=== PATIENT | female | born 2005 | race Caucasian/White ===

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

== ENCOUNTER 2025-05-26 14:00 | Outpatient (CLI) | payer MEDICAID, SELFPAY ==
--- OUTSIDE RECORDS SUMMARY | 2025-05-26 14:06 | XMS_ITS | Data Portability ---
Author Organization [facility] [place] Address [address] [place] [address] Care Team Providers Care Silo Operator Name Role Phone DIAMOND AGUAYO Primary Care Provider [phone] Assessment Encounter Date Assessment Date Assessment LastModified by Organization Details LastModified Time 02/10/2024 02/10/2024 Negative POC testing today. No evidence of bacterial infection on PE. Increased oral fluids, OTC tylenol, ibuprofen and mucinex recommended per package instructions. Follow up if no improvement or worsening. Work note provided for M-W, return to work on as long as no fever in 24 hours. Not available 02/14/2024 08:42:42 02/12/2024 02/12/2024 PE consistent with otitis media. Medication as prescribed. Follow up if no improvement or worsening. Not available 02/14/2024 08:16:07 04/14/2025 04/14/2025 Patient presents with symptoms of UTI. Results of dipstick were positive for UTI. Advised to drink clear fluids, Tylenol for pain and take prescribed medications as instructed. Patient encouraged to follow up within 1 week if not improving. Recurrent Urinary Tract Infection Plan: - Prescribe Nitrofurantoin (Macrobid) 100 mg PO BID for 7 days - Obtain urine culture - Follow up with patient regarding culture results in 3 days - Initiate Docusate sodium (stool softener) PO daily - Patient education: - Increase clear fluid intake - Avoid caffeine - Urinate immediately after sexual intercourse - If UTI recurs after this treatment, consider referral to urology - Follow up as needed based on culture results and symptom resolution [email or web address] Not available 04/14/2025 12:00:38 Plan of Treatment Reminders Order Date Submit Date Provider Last Modified By Organization Details Last Modified Time Details Appointments None recorded. Lab urinalysis, dipstick [address], [address], 11:38:10 culture, urine 2024 025 [facility]), [address] [place] [address], [address], 5 02:06:46 culture, urine 2024 025 [facility]), [address] [place] [address], [address], 5 17:07:38 urinalysis, dipstick [address], [address], 5 17:50:42 CT + NG RNA, PCR, unspecified specimen 2024 025 [facility], [address] [place] [address], [address], 5 17:07:37 urinalysis, dipstick [address], [address], 5 14:38:35 vaginal pathogens panel, BAUTISTA+probe, vaginal fluid 2024 025 [facility]), [address] [place] [address], [address], 5 12:13:00 culture, urine 2024 025 [facility], [address] [place] [address], [place], [address], 5 12:13:00 test, urine 2024 025 [email or web address] [facility], [address] [place] [address], [address], 5 14:38:35 rapid flu (A+B) [address], [address], 4 12:49:34 rapid strep group A, throat [address], [address], 4 17:43:19 rapid SARS CoV 2 Ag, QL, IA, upper respiratory specimen 2023 024 [facility], [address] [place] [address], [address], 4 12:49:26 mononucleos is, heterophile Ab, blood [address], [address], 4 17:48:59 Referral gynecologis t referral - IUD placement 2024 025 [email or web address] Mer Cummings DO, [address], [place] [address], [place], [address], 5 08:51:13 Procedures None recorded. Surgeries None recorded. Imaging None recorded. Medication Orders docusate sodium 100 mg capsule 2024 025 [facility], [address] [place] [address], [address], 11:59:41 nitrofurant oin monohydrate /macrocryst als 100 mg capsule 2024 025 [facility], [address] [place] [address], [address], 05:01:49 Bactrim DS 800 mg-160 mg tablet 2024 025 [facility], [address] [place] [address], [address], 11:49:48 Bactrim DS 800 mg-160 mg tablet 2024 025 [facility], [address] [place] [address], [address], 11:28:15 cefdinir 300 mg capsule 2023 025 [facility], [address] [place] [address], [address], 15:10:49 Patient TargetsNo targets recorded. 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 for Co ntraception care management IUD placement Referring Physician: Diamond Agauyo, Family Medicine, Encounter Date: 11/04/2024 Results Created Date Observation Date Name Description Value Unit Range Abnormal Flag Note LastModifiedBy Organization Detail LastModifiedTime 02/10/2002/10/2024 monon ucleo sis, heter ophil e Ab, blood Nicholas negati ve Not Available [address], [address], 02/10/2024 17:48:51 02/10/20 02/10/2024 rapid strep group A, throa t Strep negati ve Not Available [address], [address], 02/10/2024 16:54:48 02/12/20 24 02/12/2024 rapid SARS CoV 2 Ag, QL, IA, upper respi rator y speci men SARS CoV Ag negati ve Not Available [address], [address], 02/10/2024 16:54:49 02/12/20 24 02/12/2024 rapid flu (A+B) Flu A negati ve Not Available [address], [address], 02/10/2024 16:54:48 02/12/2002/12/2024 rapid flu (A+B) Flu B negati ve Not Available [address], [address], 02/10/2024 16:54:48 11/05/19 25 11/05/2024 NUSWA B VAGIN ITIS PLUS (VG+) atopobium vaginae Low - 0 score Not Available [facility] ([facility]) [address] [facility], [place], [address], 11/10/2024 12:13:00 11/05/19 25 11/05/2024 NUSWA B VAGIN ITIS PLUS (VG+) bvab 2 Low - 0 score Not Available [facility] ([facility]) [address] [facility], [place], [address], 11/10/2024 12:13:00 11/05/19 25 11/05/2024 NUSWA B VAGIN ITIS PLUS (VG+) megasphaera 1 Low - 0 score Calcu late total score by addin g the 3 indiv idual bacte rial vagin osis (BV) marke r score s toget her. Total score is inter prete d as follo ws: Total score 0-1: Indic ates the absen ce of BV. Total score 2: Indet ermin ate for BV. Addit ional clini ayde data shoul d be evalu ated to estab sid a diagn osis. Total score 3-6: Indic ates the prese nce of BV. Not Available [facility] ([facility]) [address] [facility], [place], [address], 11/10/2024 12:13:00 11/05/19 25 11/05/2024 NUSWA B VAGIN ITIS PLUS (VG+) bon albicans, BAUTISTA Negati ve negati ve Not Available [facility] ([facility]) [address] [place], [address], 11/10/2024 12:13:00 11/05/19 25 11/05/2024 NUSWA B VAGIN ITIS PLUS (VG+) bon glabrata, BAUTISTA Negati ve negati ve Not Available [facility] ([facility]) [address] [place], [address], 11/10/2024 12:13:00 11/05/19 25 11/05/2024 NUSWA B VAGIN ITIS PLUS (VG+) trich vag by BAUTISTA Negati ve negati ve Not Available [facility] ([facility]) [address] [place], [address], 11/10/2024 12:13:00 11/05/19 25 11/05/2024 NUSWA B VAGIN ITIS PLUS (VG+) chlamydia trachomatis, BAUTISTA Negati ve negati ve Not Available [facility] ([facility]) [address] [place], [address], 11/10/2024 12:13:00 11/05/19 25 11/05/2024 NUSWA B VAGIN ITIS PLUS (VG+) neisseria gonorrhoeae, BAUTISTA Negati ve negati ve Not Available [facility] ([facility]) [address] [facility], [place], [address], 11/10/2024 12:13:00 11/05/19 25 11/10/2024 URINE CULTU RE, ROUTI NE urine culture, routine Final report abnormal Not Available [facility] ([facility]) [address] [facility], [place], [address], 11/10/2024 12:13:00 11/05/19 25 11/10/2024 URINE CULTU RE, ROUTI NE result 1 Staphy lococc us aureus abnormal Based on susce ptibi lity to oxaci llin this isola te would be susce ptibl e to: *Peni cilli nase- stabl e penic illin s, such as: Cloxa cilli n, Diclo xacil sadiq, Nafci llin *Beta -lact am combi natio n agent s, such as: Amoxi cilli n-cla vulan ic acid, Ampic illin -sulb actam , Piper acill in-ta zobac mueller *Oral cephe ms, such as: Cefac keny, Cefdi dave, Cefpo doxim e, Cefpr ozil, Cefur oxime , Cepha lexin , Lorac arbef *Pare ntera l cephe ms, such as: Cefaz rosy, Cefep carlos, Cefot axime , Cefot aman, Cefta rolin e, Cefti zoxim e, Ceftr iaxon e, Cefur oxime *Carb apene ms, such as: Dorip enem, Ertap enem, Imipe nem, Merop enem Most isola alton of Staph yloco ccus sp. produ ce a beta- lacta jhon enzym e rende ring them resis tant to penic illin . Pleas e conta ct the labor atory if penic illin is being consi dered for thera py. Great er than 100,0 00 colon y formi ng units per mL Not Available [facility] ([facility]) [address] [facility], [place], [address], 11/10/2024 12:13:00 11/05/19 25 11/10/2024 URINE CULTU RE, ROUTI NE antimicrobia l susceptibili ty Commen t S = Susce ptibl e; I = Inter media te; R = Resis tant P = Posit chance; N = Negat chance MICS are expre ssed in micro grams per mL Antib iotic RSLT# 1 RSLT# 2 RSLT# 3 RSLT# 4 Cipro floxa stacia S Genta micin S Levof loxac in S Linez olid S Moxif loxac in S Nitro furan toin S Oxaci llin S Rifam pin S Tetra cycli ne S Trime thopr im/Stephens lfa S Vanco mycin S Not Available [facility] ([facility]) [address] [facility], [place], [address], 11/10/2024 12:13:00 11/05/19 25 11/04/2024 urina lysis , dipst ick Leukocytes Modera te Not Available [address], [address], 11/04/2024 14:20:04 11/05/19 25 11/04/2024 urina lysis , dipst ick Nitrite positi ve Not Available [address], [address], 11/04/2024 14:20:04 11/05/19 25 11/04/2024 urina lysis , dipst ick Urobilinogen 1 Not Available [address], [address], 11/04/2024 14:20:04 11/05/19 25 11/04/2024 urina lysis , dipst ick Protein 100 Not Available [address], [address], 11/04/2024 14:20:04 11/05/19 25 11/04/2024 urina lysis , dipst ick pH 5.0 Not Available [address], [address], 11/04/2024 14:20:04 11/05/19 25 11/04/2024 urina lysis , dipst ick Blood Large Not Available [address], [address], 11/04/2024 14:20:04 11/05/1911/04/2024 urina lysis , dipst ick Specific [place] 1.020 Not Available [address], [address], 11/04/2024 14:20:04 11/05/19 25 11/04/2024 urina lysis , dipst ick Ketone Negati ve Not Available [address], [address], 11/04/2024 14:20:04 11/05/19 25 11/04/2024 urina lysis , dipst ick Bilirubin Negati ve Not Available [address], [address], 11/04/2024 14:20:04 11/05/19 25 11/04/2024 urina lysis , dipst ick Glucose Negati ve Not Available [address], [address], 11/04/2024 14:20:04 11/05/19 25 11/04/2024 urina lysis , dipst ick Appearance Cloudy Not Available [address], [address], 11/04/2024 14:20:04 11/05/19 25 11/04/2024 urina lysis , dipst ick Color Dark Yellow Not Available [address], [address], 11/04/2024 14:20:04 11/05/19 25 11/04/2024 pregn laquita test, urine HCG negati ve Not Available [address], [address], 11/04/2024 14:20:17 12/08/19 25 12/07/2024 urina lysis , dipst ick Leukocytes Modera te Not Available [address], [address], 12/07/2024 17:06:20 12/08/19 25 12/07/2024 urina lysis , dipst ick Nitrite negati ve Not Available [address], [address], 12/07/2024 17:06:20 12/08/19 25 12/07/2024 urina lysis , dipst ick Urobilinogen .2 Not Available [address], [address], 12/07/2024 17:06:20 12/08/19 25 12/07/2024 urina lysis , dipst ick Protein 100 Not Available [address], [address], 12/07/2024 17:06:20 12/08/19 25 12/07/2024 urina lysis , dipst ick pH 5.5 Not Available [address], [address], 12/07/2024 17:06:20 12/08/19 25 12/07/2024 urina lysis , dipst ick Blood Modera te Not Available [address], [address], 12/07/2024 17:06:20 12/08/19 25 12/07/2024 urina lysis , dipst ick Specific [place] 1.025 Not Available [address], [address], 12/07/2024 17:06:20 12/08/19 25 12/07/2024 urina lysis , dipst ick Ketone Trace Not Available [address], [address], 12/07/2024 17:06:20 12/08/19 25 12/07/2024 urina lysis , dipst ick Bilirubin Negati ve Not Available [address], [address], 12/07/2024 17:06:20 12/08/1912/07/2024 urina lysis , dipst ick Glucose Negati ve Not Available [address], [address], 12/07/2024 17:06:20 12/08/19 25 12/07/2024 urina lysis , dipst ick Appearance Cloudy Not Available [address], [address], 12/07/2024 17:06:20 12/08/19 25 12/07/2024 urina lysis , dipst ick Color Dark Yellow Not Available [address], [address], 12/07/2024 17:06:20 12/09/19 25 12/10/2024 CHLAM YDIA/ GC AMPLI FICAT ION chlamydia trachomatis, BAUTISTA Negati ve negati ve Not Available [facility] ([facility]) [address] [facility], [place], [address], 12/11/2024 17:07:37 12/09/19 25 12/10/2024 CHLAM YDIA/ GC AMPLI FICAT ION neisseria gonorrhoeae, BAUTISTA Negati ve negati ve Not Available [facility] ([facility]) [address] [facility], [place], [address], 12/11/2024 17:07:37 12/09/19 25 12/11/2024 URINE CULTU RE, ROUTI NE urine culture, routine Final report abnormal Not Available [facility] ([facility]) [address] [facility], [place], [address], 12/11/2024 17:07:38 12/09/19 25 12/11/2024 URINE CULTU RE, ROUTI NE result 1 Staphy lococc us aureus abnormal Based on susce ptibi lity to oxaci llin this isola te would be susce ptibl e to: *Peni cilli nase- stabl e penic illin s, such as: Cloxa cilli n, Diclo xacil sadiq, Nafci llin *Beta -lact am combi natio n agent s, such as: Amoxi cilli n-cla vulan ic acid, Ampic illin -sulb actam , Piper acill in-ta zobac mueller *Oral cephe ms, such as: Cefac keny, Cefdi dave, Cefpo doxim e, Cefpr ozil, Cefur oxime , Cepha lexin , Lorac arbef *Pare ntera l cephe ms, such as: Cefaz rosy, Cefep carlos, Cefot axime , Cefot aman, Cefta rolin e, Cefti zoxim e, Ceftr iaxon e, Cefur oxime *Carb apene ms, such as: Dorip enem, Ertap enem, Imipe nem, Merop enem Most isola alton of Staph yloco ccus sp. produ ce a beta- lacta jhon enzym e rende ring them resis tant to penic illin . Pleas e conta ct the labor atory if penic illin is being consi dered for thera py. 50,00 0-100 ,000 colon y formi ng units per mL Not Available [facility] ([facility]) [address] [place], [address], 12/11/2024 17:07:38 12/09/19 25 12/11/2024 URINE CULTU RE, ROUTI NE antimicrobia l susceptibili ty Commen t S = Susce ptibl e; I = Inter media te; R = Resis tant P = Posit chance; N = Negat chance MICS are expre ssed in micro grams per mL Antib iotic RSLT# 1 RSLT# 2 RSLT# 3 RSLT# 4 Cipro floxa stacia S Genta micin S Levof loxac in S Linez olid S Moxif loxac in S Nitro furan toin S Oxaci llin S Rifam pin S Tetra cycli ne S Trime thopr im/Stephens lfa S Vanco mycin S Not Available [facility] ([facility]) [address] [facility], [place], [address], 12/11/2024 17:07:38 12/09/19 25 12/09/2024 PLEAS E NOTE please note Commen t The date and/o r time of colle ction was not indic ated on the requi sitio n as requi red by state and juan david al law. The date of recei pt of the speci men was used as the colle ction date if not suppl ied. Not Available [facility] ([facility]) [address] [facility], [place], [address], 12/11/2024 17:07:38 04/14/20 25 04/19/2025 URINE CULTU RE, ROUTI NE urine culture, routine Final report abnormal Not Available [facility] ([facility]) [address] [place], [address], 04/19/2025 02:06:46 04/14/2004/19/2025 URINE CULTU RE, ROUTI NE result 1 Staphy lococc us aureus abnormal Based on susce ptibi lity to oxaci llin this isola te would be susce ptibl e to: *Peni cilli nase- stabl e penic illin s, such as: Cloxa cilli n, Diclo xacil sadiq, Nafci llin *Beta -lact am combi natio n agent s, such as: Amoxi cilli n-cla vulan ic acid, Ampic illin -sulb actam , Piper acill in-ta zobac mueller *Oral cephe ms, such as: Cefac keny, Cefdi dave, Cefpo doxim e, Cefpr ozil, Cefur oxime , Cepha lexin , Lorac arbef *Pare ntera l cephe ms, such as: Cefaz rosy, Cefep carlos, Cefot axime , Cefot aman, Cefta rolin e, Cefti zoxim e, Ceftr iaxon e, Cefur oxime *Carb apene ms, such as: Dorip enem, Ertap enem, Imipe nem, Merop enem Most isola alton of Staph yloco ccus sp. produ ce a beta- lacta jhon enzym e rende ring them resis tant to penic illin . Pleas e conta ct the labor atory if penic illin is being consi dered for thera py. 50,00 0-100 ,000 colon y formi ng units per mL Not Available [facility] ([facility]) [address] [facility], [place], [address], 04/19/2025 02:06:46 04/14/2004/19/2025 URINE CULTU RE, TAHMINA NE antimicrobia l susceptibili ty Commen t S = Susce ptibl e; I = Inter media te; R = Resis tant P = Posit chance; N = Negat chance MICS are expre ssed in micro grams per mL Antib iotic RSLT# 1 RSLT# 2 RSLT# 3 RSLT# 4 Cipro floxa stacia S Genta micin S Levof loxac in S Linez olid S Moxif loxac in S Nitro furan toin S Oxaci llin S Rifam pin S Tetra cycli ne S Trime thopr im/Stephens lfa S Vanco mycin S Not Available [facility] ([facility]) [address] [facility], [place], [address], 04/19/2025 02:06:46 04/14/20 25 04/14/2025 urina lysis , dipst ick Leukocytes Modera te Not Available [address], [address], 04/14/2025 11:28:43 04/14/20 25 04/14/2025 urina lysis , dipst ick Nitrite negati ve Not Available [address], [address], 04/14/2025 11:28:43 04/14/20 25 04/14/2025 urina lysis , dipst ick Urobilinogen .2 Not Available [address], [address], 04/14/2025 11:28:43 04/14/20 25 04/14/2025 urina lysis , dipst ick Protein Trace Not Available [address], [address], 04/14/2025 11:28:43 04/14/20 25 04/14/2025 urina lysis , dipst ick pH 6.0 Not Available [address], [address], 04/14/2025 11:28:43 04/14/20 25 04/14/2025 urina lysis , dipst ick Blood Non-He molyze d: Trace Not Available [address], [address], 04/14/2025 11:28:43 04/14/20 25 04/14/2025 urina lysis , dipst ick Specific [place] 1.025 Not Available [address], [address], 04/14/2025 11:28:43 04/14/20 25 04/14/2025 urina lysis , dipst ick Ketone Negati ve Not Available [address], [address], 04/14/2025 11:28:43 04/14/20 25 04/14/2025 urina lysis , dipst ick Bilirubin Negati ve Not Available [address], [address], 04/14/2025 11:28:43 04/14/20 25 04/14/2025 urina lysis , dipst ick Glucose Negati ve Not Available [address], [address], 04/14/2025 11:28:43 04/14/20 25 04/14/2025 urina lysis , dipst ick Appearance Slight ly Cloudy Not Available [address], [address], 04/14/2025 11:28:43 04/14/2004/14/2025 urina lysis , dipst ick Color Yellow Not Available [address], [address], 04/14/2025 11:28:43 02/15/20 24 02/15/2024 XR, chest , 1 view No observ ation record ed. [email or web address] [facility] [address], [place], [place], [address], 03/05/2024 15:18:08 Result Notes None recorded. Problems Name Problem SNOMED Code Status Onset Date Resolution Date Notes Provider Name and Address Organization Details Recorded Time Plane wart 282293154 Completed 201602/20/2018 Problem Code: B07.8; Problem Code Type: ICD-10; Not Available [facility] 21:18:44 Constipa tion 56770860 Completed 201602/20/2018 Not Available [facility] 21:18:47 Verruca vulgaris 80876375 Completed 201602/20/2018 Problem Code: 078.10; Problem Code Type: ICD-9; Not Available [facility] 21:18:51 Menorrha grecia [id number] Completed 201703/03/2018 Not Available [facility] 21:18:51 Menometr orrhagia 990108909 Completed 201703/03/2018 Not Available [facility] 21:18:52 Overweig ht in childhoo d [id number] Completed 201703/08/2021 Problem Code: Z68.53; Problem Code Type: ICD-10; [place] [employer] 16:58:46 Acute pansinus itis 2171685 Completed 201706/26/2018 Problem Code: J01.40; Problem Code Type: ICD-10; Not Available [facility] 21:18:45 Acute sinusiti s 11945429 Completed 201706/26/2018 Problem Code: 461.8; Problem Code Type: ICD-9; Not Available [facility] 21:18:54 Tension- type headache 142599698 Completed 201707/10/2018 Problem Code: G44.209; Problem Code Type: ICD-10; Not Available [facility] 21:18:45 Psychoge sabra headache 56894681 Completed 201707/10/2018 Problem Code: 307.81; Problem Code Type: ICD-9; Not Available [facility] 21:18:53 Allergic contact dermatit is 274650668 Active 2018 Problem Code: L23; Problem Code Type: ICD-10; Not Available [facility] 21:18:50 Acute pharyngi tis 950725412 Completed 201811/23/2019 Diamond Aguayo APRN [address] [place], [address] , [facility] 5 14:29:38 Hypertro phy of tonsils AND adenoids 15563687 Completed 201805/16/2022 Problem Code: J35.3; Problem Code Type: ICD-10; BENJI MCDANIELSNEAR null, [employer] 16:58:46 Eruption [id number] Completed 201811/23/2019 Problem Code: R21; Problem Code Type: ICD-10; BENJI MCDANIELSNEAR null, [employer] 16:58:46 Disorder of upper respirat ory system 565003851 Completed 201805/16/2022 Problem Code: J06.9; Problem Code Type: ICD-10; BENJI MCDANIELSNEAR null, [employer] 2 16:58:46 Influenz a with gastroin testinal tract involvem ent 318638695 Completed 201911/23/2019 Problem Code: J10.2; Problem Code Type: ICD-10; Not Available [facility] 21:18:46 Acute pharyngi tis 178233702 Completed 201905/16/2022 Diamond Aguayo APRN [address] [place], [address] , [employer] 5 14:29:38 Tinea pedis 8364635 Completed 201905/16/2022 Problem Code: B35.3; Problem Code Type: ICD-10; BENJI ENEDELIASIDNEYR null, [facility] 2 16:58:46 Constipa tion 29476003 Active 2019 Not Available [facility] 21:18:46 Well child 505144326 Completed 201907/26/2022 NATE GUZMÁN null, [employer] 3 17:14:39 Influenz a vaccine needed [id number] 06 Completed 201911/28/2020 Problem Code: Z23; Problem Code Type: ICD-10; Not Available [facility] 21:18:49 Overweig ht in childhoo d 458980626 Completed 201905/16/2022 Problem Code: Z68.53; Problem Code Type: ICD-10; BENJI ENEDELIANEAR null, [facility] 16:58:46 Sunburn of first degree 970603294 Completed 201905/16/2022 Problem Code: L55.0; Problem Code Type: ICD-10; BENJI ENEDELIANEAR null, [employer] 16:58:46 Nausea 108142223 Completed 201911/28/2020 Problem Code: R11.0; Problem Code Type: ICD-10; Not Available [facility] 21:18:48 Disorder of upper respirat ory system 057245983 Completed 201911/28/2020 Problem Code: J06.9; Problem Code Type: ICD-10; BENJI ENEDELIANEAR null, [facility] 2 16:58:46 Itching 861478613 Completed 202011/28/2020 Problem Code: L29.9; Problem Code Type: ICD-10; Not Available [facility] 21:18:47 Eruption 371249309 Completed 202011/28/2020 Problem Code: R21; Problem Code Type: ICD-10; BENJI MYNEAR null, [employer] 2 16:58:46 Eruption 662857724 Completed 202005/16/2022 Problem Code: R21; Problem Code Type: ICD-10; BENJI HERRERA null, [employer] 2 16:58:46 Chronic allergic conjunct ivitis 24346963 Completed 202003/08/2021 Problem Code: H10.45; Problem Code Type: ICD-10; Not Available [facility] 21:18:45 Overweig ht in childhoo d [id number] Completed 202009/14/2021 Problem Code: Z68.53; Problem Code Type: ICD-10; BENJI HERRERA null, [employer] 2 16:58:46 Disorder of eye region 844556609 Completed 202005/16/2022 Problem Code: H57.8; Problem Code Type: ICD-10; BENJI HERRERA null, [employer] 2 16:58:46 Low back pain 582924690 Completed 202005/16/2022 Problem Code: M54.5; Problem Code Type: ICD-10; BENJI HERRERA null, [employer] 2 16:58:46 Uses combined oral contrace ption [id number] Active 2020 Problem Code: Z30.41; Problem Code Type: ICD-10; Not Available [facility] 21:18:49 [place] ht in childhoo d [id number] Completed 202009/14/2021 Problem Code: Z68.53; Problem Code Type: ICD-10; BENJI HERRERA null, [employer] 16:58:46 Well child [id number] Completed 202009/14/2021 NATE GUZMÁN null, [employer] 3 17:14:39 Disorder of upper respirat ory system 524849943 Completed 202009/14/2021 Problem Code: J06.9; Problem Code Type: ICD-10; BENJI CROWR null, [facility] [facility] 2 16:58:46 Acute pharyngi tis 899313887 Completed 202009/14/2021 Diamond Aguayo APRN [address] [place] [address], [phone] , [employer] 5 14:29:38 Acute pharyngi tis 637404088 Completed 202111/30/2021 Diamond Aguayo APRN [address] [place] [address], [phone] , [employer] 5 14:29:38 Bereavem ent [id number] Completed 202105/16/2022 Problem Code: Z63.4; Problem Code Type: ICD-10; BENJI MCDANIELSNEAR null, [employer] 2 16:58:46 Hypertro phic scar 71790394 Completed 202105/16/2022 Problem Code: L91.0; Problem Code Type: ICD-10; BENJI MCDANIELSNEAR null, [employer] 2 16:58:46 Swelling / lump finding Completed 202105/16/2022 Problem Code: R22.9; Problem Code Type: ICD-10; BENJI MCDANIELSNEAR null, [employer] 2 16:58:46 Contact dermatit is 50612359 Completed 202202/14/2024 Almaz Quintanilla NP [address] [place] [address], [phone] , [employer] 4 08:14:38 Acute urinary tract infectio n 936278699 Completed 202202/14/2024 Almaz Quintanilla NP [address] [place] [address], [phone] , [facility] 4 08:14:35 Dysuria 57290194 Active 2024 Anahy rodriguez, [employer] 5 17:06:15 Acute cystitis 00576206 Active 2024 Diamond Aguayo, [employer] [facility] [address] [place], [address] , [facility] 5 11:36:31 Chronic constipa tion 990587413 Active 2024 Diamond Aguayo, [employer] [address] [place], [address] , [facility] 5 11:46:18 Problem Notes None recorded. Medical Equipment None Reported. Allergies Allergen ID Allergen Name Allergen Category Reaction Reaction Severity Criticality Documentation Date Start Date Code Code System Note Provider Name and Address Organization Details Recorded Time 21543 Product containin g penicilli n (product) medicatio n Not available Not available Not available 03/27/2022 44071 8001 SNOMED NATE rodriguez, [place] [employer] 3 17:13:52 Medications Name Sig Start Date Stop Date Status Note LastModified by Organization Details LastModified Time promethazin e-DM 6.25 mg-15 mg/5 mL oral syrup take 5 millilite rs by oral route every 4 hours as needed 08/14 completed Not Available Not Available Not Available cetirizine 10 mg tablet TAKE 1 TABLET EVERY DAY BY ORAL ROUTE. 11/04 completed Not Available Not Available Not Available azithromyci n 250 mg tablet take 2 tablets (500 mg) by oral route once daily for 1 day then 1 tablet (250 mg) by oral route once daily for 4 days 04/19 completed Not Available Not Available Not Available ibuprofen 800 mg tablet TAKE 1 TABLET BY MOUTH EVERY 8 HOURS NEEDED 11/04 completed Not Available Not Available Not Available prednisone 20 mg tablet take 1 tablet (20 mg) by oral route 3 times per day x3 days 11/28 completed Not Available Not Available Not Available prednisone 5 mg tablet 7pills po today and decrease by one q day 03/06 completed Not Available Not Available Not Available clindamycin HCl 150 mg capsule 06/19 completed Not Available Not Available Not Available ciprofloxac in 500 mg tablet TAKE 1 TABLET BY MOUTH EVERY 12 HOURS FOR 10 DAYS 11/04 completed Not Available Not Available Not Available sulfamethox azole 800 mg-trimetho prim 160 mg tablet TAKE ONE TABLET BY MOUTH every 12 hours FOR SEVEN DAYS, FOR uti 04/14 completed Not Available Not Available Not Available Zofran 4 mg tablet take 1 tab by oral route very 4-6 hours prn n/v 05/18 completed Not Available Not Available Not Available ciprofloxac in 0.3 % eye drops INSTILL 1 DROP INTO AFFECTED EYE(S) BY OPHTHALMI C ROUTE EVERY 2 HOURSWHIL E AWAKE FOR 2 DAYS THEN 1 DROP EVERY 4 HRS WHILE AWAKE FOR 5 DAYS 11/05 completed Not Available Not Available Not Available benzonatate 100 mg capsule TAKE 1 CAPSULE BY MOUTH TWICE DAILY NEEDED FOR COUGH 11/04 completed Not Available Not Available Not Available cephalexin 500 mg capsule Take 1 capsule twice a day by oral route for 10 days. 11/05 completed Not Available Not Available Not Available erythromyci n 5 mg/gram (0.5 %) eye ointment APPLY 1 CM RIBBON INTO THE LOWER CONJUNCTI SOURAV SAC(S) IN THE AFFECTED EYE(S) BY OPHTHALMI C ROUTE 3 TIMES PER DAY 11/05 completed Not Available Not Available Not Available oseltamivir 75 mg capsule take 1 capsule (75 mg) by oral route 2 times per day 10/01 completed Not Available Not Available Not Available docusate sodium 100 mg capsule TAKE 1 CAPSULE BY MOUTH 2 TIMES PER DAY NEEDED CONSTIPAT ION active Not Available Not Available No t Available Zaditor 0.025 % (0.035 %) eye drops instill 1 drop into affected eye(s) by ophthalmi c route 2 times per day 03/08 completed Not Available Not Available Not Available prednisone 5 mg tablets in a dose pack Take as directed on package instructi ons} 04/05 completed Not Available Not Available Not Available polyethylen e glycol 3350 17 gram/dose oral powder take 17 gram mixed with 8 oz. water, juice, soda, coffee or tea by oral route once daily 11/05 completed Not Available Not Available Not Available betamethaso ne dipropionat e 0.05 % topical ointment apply a thin layer to the affected area(s) by topical route 2 times per day 06/20 completed Not Available Not Available Not Available bromphenira mine-pseudo ephedrine-D M 2 mg-30 mg-10 mg/5 mL oral syrup Take 10 mL every 4-6 hours by oral route. 04/19 completed Not Available Not Available Not Available ondansetron 4 mg disintegrat ing tablet place 1 tablet on top of the tongue where it will dissolve, then swallow every 6 hours prn nausea/vo miting 10/01 completed Not Available Not Available Not Available cefdinir 300 mg capsule TAKE ONE CAPSULE BY MOUTH EVERY TWELVE HOURS 11/04 completed Not Available Not Available Not Available fluticasone propionate 50 mcg/actuati on nasal spray,suspe nsion [place] 1 spray every day by intranasa l route. active Not Available Not Available No t Available loratadine 10 mg tablet TAKE 1 TABLET BY MOUTH DAILY FOR NASAL/SARKIS ST CONGESTIO N. 11/04 completed Not Available Not Available Not Available naproxen 500 mg tablet TAKE 1 TABLET BY MOUTH TWICE DAILY 05/16 completed Not Available Not Available Not Available hydroxyzine pamoate 25 mg capsule take 1 capsule (25 mg) by oral route 3 times per day 06/20 completed Not Available Not Available Not Available azithromyci n 500 mg tablet Take 1 tablet every day by oral route for 5 days. 02/09 completed Not Available Not Available Not Available 08/10 (28) 1 mg-20 mcg (21)/75 mg (7) tablet TAKE 1 TABLET BY MOUTH ONCE DAILY active Not Available Not Available No t Available nitrofurant oin monohydrate /macrocryst als 100 mg capsule Take 1 capsule every 12 hours by oral route for 7 days, for UTI. 04/28 completed Not Available Not Available Not Available Antifungal (terbinafin e) 1 % topical cream apply to the affected and surroundi ng areas of skin of feet by topical route 2 times per day 05/18 completed Not Available Not Available Not Available lactulose 20 gram/30 mL oral solution Take 15 ml bu oral route once daily prn constipat ion 03/07 completed Not Available Not Available Not Available [employer]flex COVID-19 Antigen Home Test kit DIRECTED 05/16 completed Not Available Not Available Not Available Vitals Date Recorded Body height Body mass index (BMI) [Percentile] Per age and sex Body mass index (BMI) Body weight Body temperature Heart rate Oxygen saturation Oxygen saturation in Arterial blood by Pulse oximetry Systolic And Diastolic Provider Name and Address Organization Details Last Updated DateTime 5 161.29 cm 64 % 23 kg/m2 32082.4 7 g 98 [degF] 96 /min 98 % 98 % 118/80 mm[Hg] BENJI HERRERA [facility] 5 14:13:37 Date Recorded Body height Body mass index (BMI) Body mass index (BMI) [Percentile] Per age and sex Body weight Heart rate Oxygen saturation Oxygen saturation in Arterial blood by Pulse oximetry Systolic And Diastolic Provider Name and Address Organization Details Last Updated DateTime 5 161.29 cm 23.2 kg/m2 66 % 43122.7 9 g 76 /min 94 % 94 % 122/83 mm[Hg] Anahy Izquierdo [facility] 5 17:05:45 Date Recorded Body height Body mass index (BMI) [Percentile] Per age and sex Body mass index (BMI) Body weight Body temperature Heart rate Oxygen saturation Oxygen saturation in Arterial blood by Pulse oximetry Systolic And Diastolic Provider Name and Address Organization Details Last Updated DateTime 4 161.29 cm 91 % 28.1 kg/m2 37079.7 7 g 99.1 [degF] 107 /min 96 % 96 % 110/76 mm[Hg] Yvette Mclaughlin [facility] 4 16:54:23 Date Recorded Body height Body mass index (BMI) Body mass index (BMI) [Percentile] Per age and sex Body weight Body temperature Heart rate Oxygen saturation Oxygen saturation in Arterial blood by Pulse oximetry Systolic And Diastolic Provider Name and Address Organization Details Last Updated DateTime 4 161.29 cm 28.2 kg/m2 91 % 72001.5 3 g 99.9 [degF] 108 /min 95 % 95 % 106/75 mm[Hg] Ibeth Ruiz [facility] 4 17:06:06 Date Recorded Body height Body mass index (BMI) Body mass index (BMI) [Percentile] Per age and sex Body weight Body temperature Heart rate Oxygen saturation Oxygen saturation in Arterial blood by Pulse oximetry Systolic And Diastolic Provider Name and Address Organization Details Last Updated DateTime 5 161.29 cm 23.5 kg/m2 68 % 62029.5 3 g 97.9 [degF] 76 /min 98 % 98 % 115/80 mm[Hg] BENJI HERRERA [facility] 5 11:28:11 Social History Question Answer Notes LastModified by GLIIFizat ion Details LastModified Time Tobacco Smoking Status Never Smoker RUBEN SANTA rodriguez [facility] 03/07/2023 15:52:04 Do You Have An Advance Directive? No Information n ot available 06/19/2023 Is Your Home Air Conditioned? Yes Information not available 05/16/2022 Are You Blind Or Do You Have Difficulty Seeing? No [email or web address] Information n ot available 03/07/2023 What Is Your Level Of Caffeine Consumption? Moderate [email or web address] Information not available 03/07/2023 Are You A Caregiver? No [email or web address] Information not available 03/07/2023 In The 14 Days Before Symptom Onset, Have You Had Close Contact With A Laboratory-confirm ed COVID-19 While That Case Was Ill? No Information n ot available 05/16/2022 In The 14 Days Before Symptom Onset, Have You Had Close Contact With A Person Who Is Under Investigation For COVID-19 While That Person Was Ill? No Information not available 05/16/2022 Have You Been To An Area Known To Be High Risk For COVID-19? No Information not available 05/16/2022 Are You Deaf Or Do You Have Serious Difficulty Hearing? No [email or web address] Information not available 03/07/2023 What Type Of Diet Are You Following? REGULAR Information n ot available 05/16/2022 Have There Been Any Changes To Your Family Or Social Situation? No [email or web address] Information no t available 03/07/2023 What Grade Are You In? [id number] [email or web address] Information not available 03/07/2023 Are There Any Guns Present In Your Home? No Information not available 05/16/2022 Which Of Your Hands Is Dominant? Right [email or web address] Information n ot available 03/07/2023 What Is Your Home Situation? Mother Information not available 05/16/2022 Do You Have A Medical Power Of Plate And Frame Filter Operator? No [email or web address] Information not available 06/19/2023 What Was The Date Of Your Most Recent Tobacco Screening? 04/14/2025 Information not available 04/14/2025 Do You Have Any Pets? Yes Information not available 03/07/2023 What Is Your Relationship Status? Single Information not available 05/16/2022 Have You Repeated Any Grades? No Information not available 03/07/2023 What Is The Name Of Your School? [employer] [email or web address] Information not available 03/07/2023 Do You Use Your Seat Belt Or Car Seat Routinely? Yes Information not available 05/16/2022 Do You Have Any Siblings? Yes [email or web address] Information not available 03/07/2023 Do You Have Smoke And Carbon Monoxide Detectors In Your Home? Yes Information not available 05/16/2022 Are You Passively Exposed To Smoke? No Information no t available 05/16/2022 Are There Any Smokers In Your House? No Information not available 05/16/2022 Do You Use Sunscreen Routinely? No Information not available 05/16/2022 Has Tobacco Cessation Counseling Been Provided? No Information not available 05/16/2022 Have You Recently Traveled Abroad? No Information not available 05/16/2022 Do You Have Difficulty Walking Or Climbing Stairs? No [email or web address] Information not available 03/07/2023 Are You Currently In School? Yes Information not available 05/16/2022 Do You Have Any Dietary Restrictions? No Information not available 05/16/2022 Sex: Female Functional Status Question Answer Note LastModified by Organizat ion Details LastModified Time Do you use any illicit or recreational drugs? No Information not available 05/16/2022 Do you or have you ever used any other forms of tobacco or nicotine? No [email or web address] Information not available 03/07/2023 What is your level of alcohol consumption? None Information not available 05/16/2022 Are you currently employed? No Information not available 05/16/2022 Do you have transportation difficulties? No [email or web address] Information not available 03/07/2023 Are you able to walk independently without assistance or assistive devices? YESWOREST [email or web address] Information not available 03/07/2023 Do you have difficulty doing errands alone? No [email or web address] Information not available 03/07/2023 Are you able to care for yourself independently? Yes Information not available 05/16/2022 Do you have difficulty dressing, bathing, grooming, or toileting? No [email or web address] Information not available 03/07/2023 Mental Status Question Answer Note LastModified by Organization D etails LastModified Time Do you have difficulty concentrating, remembering or making decisions? No [email or web address] Information no t available 03/07/2023 Family History Relationship Description Onset Age of this Age Resolved Age Notes LastModified by Organization Details LastModified Time Father No current problems or disability [email or web address] Not available 05/16 16:59:29 Mother Drug abuse [email or web address] Not availabl e 05/16/2022 16:59:53 Medical History Condition Response Hospitalizations N Allergies (Food, seasonal, environmental ) Y Emergency room visit since last appointm ent. N Gynecological History Statement/Question Response Date of Last Pap Smear Most Recent Mammogram Date of LMP 01/20/2024 Obstetrics History GPAL:G 0 P 0 0 0 0 Immunizations Vaccine Type Date Status Note Provider Nam chadwick and Address Organization Details Recorded Time DTaP-IPV 9 completed Not Available [facility] 03/27/2022 23:48:35 MMRV 6 completed Not Available [facility] 03/27/2022 23:48:35 MMRV 9 completed Not Available [facility] 03/27/2022 23:48:35 Hep B, adolescent or pediatric 5 completed Not Available [facility] 03/27/2022 23:48:35 IPV 6 completed Not Available [facility] 03/27/2022 23:48:35 Hep A, ped/adol, 2 dose 7 completed Not Available [facility] 03/27/2022 23:48:35 Hep A, ped/adol, 2 dose 6 completed Not Available [facility] 03/27/2022 23:48:35 DTaP-Hep B-IPV 6 completed Not Available [facility] 03/27/2022 23:48:36 DTaP-Hep B-IPV 6 completed Not Available [facility] 03/27/2022 23:48:36 Tdap 8 completed Ibeth rodriguez, [facility] 04/19/2023 17:05:31 Influenza, split virus, quadrivalent, preservative 8 completed Not Available [facility] 09/09/2023 10:16:40 pneumococcal conjugate PCV 7 6 completed Not Available [facility] 03/27/2022 23:48:36 pneumococcal conjugate PCV 7 7 completed Not Available [facility] 03/27/2022 23:48:36 pneumococcal conjugate PCV 7 6 completed Not Available [facility] 03/27/2022 23:48:36 pneumococcal conjugate PCV 7 6 completed Not Available [facility] 03/27/2022 23:48:36 meningococcal MCV4P 8 completed Ibeth rodriguez, [facility] 04/19/2023 17:05:31 HPV9 8 completed Not Available [facility] 09/09/2023 10:16:40 HPV9 0 completed Not Available [facility] 03/27/2022 23:48:37 DTaP 7 completed Not Available [facility] 09/09/2023 10:16:40 DTaP 6 completed Not Available [facility] 09/09/2023 10:16:40 meningococcal MCV4P 1 completed Not Available [facility] 09/09/2023 10:16:40 Hib (PRP-OMP) 6 completed Not Available [facility] 03/27/2022 23:48:37 Hib (PRP-OMP) 6 completed Not Available [facility] 03/27/2022 23:48:37 Hib-Hep B 6 completed Not Available [facility] 03/27/2022 23:48:37 Influenza, split virus, quadrivalent, PF 2 completed Diamond Aguayo, RADHA [address] [place] [address], [phone], [facility] 05/18/2022 16:07:47 Influenza, split virus, quadrivalent, preservative 8 completed RUBEN PRATT null, [facility] [employer] 03/07/2023 16:14:15 Hib, unspecified formulation 6 completed RUBEN PRATT null, [facility] 03/07/2023 16:14:15 HPV9 8 completed RUBEN PRATT null, [facility] [employer] 03/07/2023 16:14:16 Influenza, live, trivalent, intranasal, PF 9 completed RUBEN PRATT null, [facility] 03/07/2023 16:14:16 MMR 9 completed RUBEN PRATT null, [facility] 03/07/2023 16:14:16 COVID-19, mRNA, LNP-S, PF, 30 mcg/0.3 mL dose, shaheed-sucrose 2 completed RUBEN PRATT null, [facility] 03/07/2023 16:14:16 varicella 9 completed RUBEN PRATT null, [facility] 03/07/2023 16:14:16 Influenza, split virus, trivalent, preservative 0 completed RUBEN rodriguez, [place] [employer] 03/07/2023 16:14:16 Influenza, split virus, trivalent, preservative 0 completed RUBEN ro[place] [employer] 03/07/2023 16:14:16 Meningococcal MCV4O 1 completed RUBEN rodriguez[place] [employer] 03/07/2023 16:14:16 DTaP, unspecified formulation 7 completed RUBEN rodriguez[place] [employer] 03/07/2023 16:14:16 DTaP, unspecified formulation 6 completed RUBEN rodriguez, [place] [employer] 03/07/2023 16:14:16 Past Encounters Encounter ID Performer Location Encounter Start Date Encounter Closed Date Diagnosis/Indication Diagnosis SNOMED-CT Code Diagnosis ICD10 Code Diagnosis IMO Codes Diagnosis Note [id number] [place] [id number] 05/16/2022 16:34:54 05/16/2022 17:25:47 Well child 526610834 Z00.129 Surveillan ce of oral contraception 189019068 Z30.41 Thoracic back pain 87058 8004 M54.6 Instructed on home stretching program and proper body mechanics with good posture. Will obtain x-ray, and start physical therapy. Abnormal weight loss 267 192409 R63.4 She is a picky eater and has had poor nutritiona l choices, but does have good appetite. Has lost approximat kait 15 pounds over the past year unintentio shruthi. Administra tion of influenza vaccine 76116849 Z23 Allergic rhinitis 548119 04 J30.9 [id number] Dorota Quintanilla[address] 0 07/26/2022 17:07:25 07/26/2022 17:20:44 Conjunctivitis 8382900 H10.9 Normal bod y mass index 84682227 Z68.52 [id number] Dorota Quintanilla [place] [id number] 08/09/2022 16:57:54 08/10/2022 07:57:51 Pain in throat 426808382 R07.0 Normal bod y mass index 51058885 Z68.52 [id number] Dorota Quintanilla [place] [id number] 09/14/2022 16:04:11 09/14/2022 16:34:47 Conjunctivitis 3486518 H10.9 Cellulitis of periorbital region of left eye 0809590681 77033 L03.213 Normal bod y mass index 78191894 Z68.52 [id number] Jaylin Grimes [place] [id number] 11/05/2022 09:45:40 11/05/2022 10:36:43 Acute upper respiratory infection 12043846 J06.9 [id number] [place] [address] 03/07/2023 15:41:57 03/07/2023 17:22:11 Contact dermatitis 79302719 L25.9 [id number] Jaylin Grimes [place] [id number] 04/05/2023 14:19:21 04/08/2023 12:02:49 Acute upper respiratory infection 53252123 J06.9 Streptococ ayde sore throat 57088074 J02.0 Normal bod y mass index 18926822 Z68.24 [id number] Dorota Quintanilla [place] [id number] 04/19/2023 16:55:30 04/19/2023 17:47:39 Acute urinary tract infection 728654589 N39.0 High risk sexual behavior 394947390 Z72.51 Surveillan ce of oral contraception 776887739 Z30.41 Allergic rhinitis 077457 04 J30.9 Constipation 63890564 K5 9.00 Body mass index 20-24 - normal 230207859 Z68.24 [id number] MANUEL MARTINEZ, [facility] [address] 06/19/2023 16:45:54 06/19/2023 17:33:24 Viral screening 314152885 Z11.59 Dysuria 22403519 R30.0 Acute urin trish tract infection 931459456 N39.0 [id number] [place] [address] 09/06/2023 16:28:43 09/06/2023 17:11:52 Acute urinary tract infection 370167428 N39.0 [id number] Richelle Velázquez [employer] [place] [address] 2 09/09/2023 10:15:03 09/09/2023 14:33:29 Streptococcal sore throat 86798953 J02.0 Overweight in childhood 135023312 E66.3 [id number] Richelle Velázquez APRN [place] [address] 2 11/04/2023 11:23:47 11/08/2023 13:42:47 Seasonal allergic rhinitis 520353289 J30.2 Overweight in childhood 446362660 E66.3 [id number] Almaz Quintanilla NP [place] [address] 0 02/10/2024 16:36:14 02/14/2024 10:00:22 Acute pharyngitis 885169703 J02.9 Fever 815632325 R50.9 Viral syndrome 113578526 B34.9 [id number] Almaz Quintanilla NP [place] [address] 0 02/12/2024 16:54:41 02/14/2024 10:10:22 Fever 432257602 R50.9 Acute left otitis media 563571111 H66.92 [id number] [place] [address] 11/04/2024 14:06:59 11/04/2024 14:43:04 Dysuria 66333020 R30.0 Contracept ion care management 130867814 Z30.9 Has been taking OCP and doing well with those, but like to have an IUD placed. Adult heal th examination 419058389 Z00.00 Counseled regarding prevention of STD's . Counseled regarding contracept chance options . Advised avoidance of tobacco, alcohol, and drugs . Counseled regarding folic acid supplement ation, calcium needs and prevention of osteoporos is . BSE reviewed and recommende d. Body mass index 20-24 - normal 918754647 Z68.23 Acute urin trish tract infection 597979524 N39.0 Stop douching.P atient presents with symptoms of UTI. Results of dipstick were positive for UTI. Advised to drink clear fluids, reduce sexual activity, Tylenol for pain and take prescribed medication s as instructed . Patient encouraged to follow up within 1 week if not improving. [id number] Dorota Quintanilla[address] [address] 12/07/2024 16:35:26 12/07/2024 17:19:32 Dysuria 70292159 R30.0 44584 High risk heterosexual behavior 1542543981 27977 Z72.51 [id number] Acute urin trish tract infection 909679869 N39.0 694798 Body mass index 20-24 - normal 962158933 Z68.23 [id number] [id number] Diamond Aguayo[address] [address] 04/14/2025 11:08:26 04/14/2025 14:02:52 Acute cystitis 62360684 N30.01 [id number] Monet Pritchard, female patient with history of scoliosis and recurrent urinary tract infections (UTIs) in October and November, presents with symptoms suggestive of another UTI. Chronic constipation 236 824345 K59.09 [id number] Health Concerns Section Related Observation LastModified by Organization Detai ls LastModified Time None Recorded Concern Status LastModified by Organization Details LastModified Time None Recorded Advance Directives Directive N: Payers Insurance Date Sequence Insurance Name Policy Number Policy Stevens Covered Member ID Stevens Member ID Guarantor Name 05/13/2025 1 [employer] [place] (MEDICAID HMO) Monet Pritchard [id number] Elizabeth Hollie 11/04/2024 1 *SELF PAY* Po lly Hollie 05/13/2025 [id number] Monet Pritchard [id number] Elizabeth Hollie 05/15/2022 1 *SELF PAY* Po lly Hollie 04/14/2025 1 [employer] [place] (MEDICAID HMO) Monet Pritchard [id number] Elizabeth Hollie Notes Date Note Type Note Provider Name and Address Organization Details Recorded Time 02/10/2024 text/html Patient presents for sore throat. She was evaluated in the [facility] ER on Saturday night for sore throat and all POC testing was negative - including strep/covid/flu. She continues to have sore throat. Woke up with sore throat on Saturday that worsened as the day progressed. Has had runny nose. No sinus pressure or pain. Cough - productive. No shortness of breath. Some people she works with had COVID but it has been a couple of weeks ago. Body aches and fever this morning (had chills, did not measure). Did have fevers off and on throughout the weekend. Has been taking tylenol and ibuprofen PRN. Almaz Quintanilla NP [address] [place], [address], [employer] 02/14/2024 08:43:17 02/12/2024 text/html Ongoing sore throat, body aches and cough that seems to be getting worse. Also having ear pain that started to get worse yesterday. Denies SOA, chest pain. Has had fever on and off. Fatigue and just wants to lay around. Needs work excuse for today. Almaz Quintanilla NP [address] [place], [address], [employer] 02/14/2024 08:40:24 11/04/2024 text/html Annual WellnessReported by PatientSocial/Behavior al HistoryFor diet and nutrition, patient reportshealthy dietanddiscussed vitamin and supplement use. For fracture risk, patient reportsno history of fracturesandno recent explained fracture. For physical activity, patient reportsexercises on a regular basisandgood physical condition. For additional lifestyle factors, patient reportsno tobacco use,no alcohol intake,discussed safe sex and sti risk, andpreconception/arsh ption counseling given.Mental Status:For depression risk, patient reportsnever feels sad, empty, or tearful,no loss of interest in activities,no significant changes in weight,no sleep disturbances or insomnia,no agitation,no loss of energy,no feelings of worthlessness or guilt,no thoughts of suicide,no history of depression, andno history of mood disorders.Functional AbilityFor hearing, patient reportsno loss of hearing. For vision, patient reportsno vision problems. Lower Urinary Tract Symptoms (LUTS)Reported by PatientHPIFor context, patient reportsexcessive caffeine intake. For associated symptoms, patient reportsconstipation,fr equency,dysuria, andvaginal dischargebut reportsno abdominal pain,no groin pain,no pelvic pain,no flank pain,no low back pain, andno fever. For severity, patient reportsmild. For onset/timing, patient reports4-10 times a day. For duration, patient reportsacuteand< 1 week. For aggravating factors, patient reportscaffeine. For quality, (burning).Used a douche last week and now has dysuria with thick yellow vaginal d/c.ROS as noted in the HPI Monet is doing well on OCP, but would like referral to [facility] for IUD placement. Diamond Aguayo APRN [address] [place], [address], [facility] [email or web address] 11/04/2024 14:53:25 12/07/2024 text/html pt here today with c/o dysuria and hematuria for the past couple of days. UA positive. states that this has been going on for the past 2 years. states that when she has a UTI she will get abx, it will go away and then it will come right back. i will send for culture and GC chlamydia. if tests are neg will refer to urology. pt voiced understanding. pt states that she is having an IUD placed on 12/11 Dorota Quintanilla APRN [address] [place], [id number], [employer] 12/07/2024 17:47:36 04/14/2025 text/html ROS as noted in the HPI Chief Complaint Suprapubic pain, recurrent urinary tract infections, chronic constipation History of Present Illness Monet Pritchard presents with symptoms suggestive of a urinary tract infection (UTI), following two previous UTIs in October and November of this year, each treated with different antibiotics. The patient reports suprapubic pain but denies burning sensation during urination. She localizes the pain to her suprapubic area. Monet mentions a slight increase in vaginal discharge recently but denies any unusual or foul-smelling discharge. She has not experienced fever. Monet has a history of chronic constipation, which she is currently not treating. She denies excessive consumption of caffeine, soda, or energy drinks. The patient's bowel movements are reported as About the same, suggesting no significant change in her constipation status. LMP 04/12/25. Diamond Aguayo APRN [address] [place], [address], [employer] 04/14/2025 12:00:59 OBGyn Episode No OBEpisode recorded.
--- OUTSIDE RECORDS SUMMARY | 2025-05-26 14:06 | XMS_ITS | Continuity of Care Document ---
Author Organization [place] [facility] [employer], [place] [email or web address] [facility] Address [address] [place] [address] Care Team Providers Care Parts Sales Advisor Name Role Phone DIAMOND AGUAYO Primary Care Provider Assessment Encounter Date Assessment Date Assessment LastModified by Organization Details LastModified Time 04/14/2025 04/14/2025 Patient presents with symptoms of [...] None recorded. Lab urinalysis, dipstick 2024 025 [email or web address] [place] [email or web address] [facility], [address] [place] [address], [place], [address], 11:38:10 culture, urine 2024 025 [place] [facility] ([facility], [address] [place] [address], [place], [address], 02:06:46 Referral None recorded. Procedures None recorded. Surgeries None recorded. Imaging None recorded. Medication Orders docusate sodium 100 mg capsule 2024 [facility], [address] [place] [address], [address], 11:59:41 nitrofurant oin monohydrate /macrocryst als 100 mg capsule 2024 [facility], [address] [place] [address], [address], 05:01:49 Patient TargetsNo targets recorded. Patient InstructionsNo instructions recorded. Reason for Referral None Reported. Results Created Date Observation Date Name Description Value Unit Range Abnormal Flag Note LastModifiedBy Organization Detail LastModifiedTime 04/14/2004/19/2025 URINE CULTU RETAHMINA NE urine culture, routine Final report abnormal Not Available [facility] ([facility]) [address] [facility], [place], [address], 04/19/2025 02:06:46 04/14/2004/19/2025 URINE CULTU RETAHMINA NE result 1 Staphy lococc us aureus [...] ng units per mL Not Available [facility] ([facility]) [address] [facility], [place], [address], 04/19/2025 02:06:46 04/14/2004/19/2025 URINE CULTU RE, ROUTI NE antimicrobia l [...] S Vanco mycin S Not Available [facility] ([facility]) [address] [facility], [place], [address], 04/19/2025 02:06:46 04/14/2004/14/2025 urina lysis , dipst ick Leukocytes Modera te Not Available [address], [address], 04/14/2025 11:28:43 04/14/20 25 04/14/2025 urina lysis , dipst ick Nitrite negati ve Not Available [address], [address], 04/14/2025 11:28:43 04/14/20 25 04/14/2025 urina lysis , dipst ick Urobilinogen .2 Not Available [address], [address], 04/14/2025 11:28:43 04/14/20 25 04/14/2025 urina lysis , dipst ick Protein Trace Not Available [address], [address], 04/14/2025 11:28:43 04/14/2004/14/2025 urina lysis , dipst ick pH 6.0 Not Available [address], [address], 04/14/2025 11:28:43 04/14/20 25 04/14/2025 urina lysis , dipst ick Blood Non-He molyze d: Trace Not Available [address], [address], 04/14/2025 11:28:43 04/14/20 25 04/14/2025 urina lysis , dipst ick Specific [place] 1.025 Not Available [address], [address], 04/14/2025 11:28:43 04/14/20 25 04/14/2025 urina lysis , dipst ick Ketone Negati ve Not Available [address], [address], 04/14/2025 11:28:43 04/14/20 25 04/14/2025 urina lysis , dipst ick Bilirubin Negati ve Not Available [address], [address], 04/14/2025 11:28:43 04/14/2004/14/2025 urina lysis , dipst ick Glucose Negati ve Not Available [address], [address], 04/14/2025 11:28:43 04/14/2004/14/2025 urina lysis , dipst ick Appearance Slight ly Cloudy Not Available [address], [address], 04/14/2025 11:28:43 04/14/2004/14/2025 urina lysis , dipst ick Color Yellow Not Available [address], [address], 04/14/2025 11:28:43 Result Notes None recorded. Problems Name Problem SNOMED Code Status Onset Date Resolution Date Notes Provider Name and Address Organization Details Recorded Time Plane wart [id number] Completed 201602/20/2018 Problem Code: B07.8; Problem Code Type: ICD-10; Not Available [facility] 21:18:44 Constipa tion 82737747 Completed 201602/20/2018 Not Available [facility] 21:18:47 Verruca vulgaris 93751431 Completed 201602/20/2018 Problem Code: 078.10; Problem Code Type: ICD-9; Not Available [facility] 21:18:51 Menorrha grecia 252861711 Completed 201703/03/2018 Not Available [facility] 21:18:51 Menometr orrhagia 809460740 Completed 201703/03/2018 Not Available [facility] 21:18:52 [place] h[facility] in [facility] d 102937344 Completed 201703/08/2021 Problem Code: Z68.53; Problem Code Type: ICD-10; BENJI MCDANIELSNEAR null, [employer] 2 16:58:46 Acute pansinus itis 5401383 Completed 201706/26/2018 Problem Code: J01.40; Problem Code Type: ICD-10; Not Available [facility] 21:18:45 Acute sinusiti s 84013856 Completed 201706/26/2018 Problem Code: 461.8; Problem Code Type: ICD-9; Not Available [facility] 21:18:54 Tension- type headache 386110531 Completed 201707/10/2018 Problem Code: G44.209; Problem Code Type: ICD-10; Not Available [facility] 21:18:45 Psychoge sabra headache 88956610 Completed 201707/10/2018 Problem Code: 307.81; Problem Code Type: ICD-9; Not Available [facility] 21:18:53 Allergic contact dermatit is 217489428 Active 2018 Problem Code: L23; Problem Code Type: ICD-10; Not Available [facility] 21:18:50 Acute pharyngi tis 587453137 Completed 201811/23/2019 Diamond Aguayo APRN [address] [place] [address], [address] [facility] [employer] 5 14:29:38 Hypertro phy of tonsils AND adenoids 06450647 Completed 201805/16/2022 Problem Code: J35.3; Problem Code Type: ICD-10; BENJI ENEDELIANEAR null, [employer] 2 16:58:46 Eruption 841527221 Completed 201811/23/2019 Problem Code: R21; Problem Code Type: ICD-10; BENJI MCDANIELSNEAR null, [employer] 16:58:46 Disorder of upper respirat ory system 494504928 Completed 201805/16/2022 Problem Code: J06.9; Problem Code Type: ICD-10; BENJI HERRERA null, [employer] 16:58:46 Influenz a with gastroin testinal tract involvem ent 114994970 Completed 201911/23/2019 Problem Code: J10.2; Problem Code Type: ICD-10; Not Available [facility] 2 21:18:46 Acute pharyngi tis 242715721 Completed 201905/16/2022 Diamond Aguayo, DANDY OPERATOR [address] [place] [address], [address] , [employer] 5 14:29:38 Tinea pedis 2303272 Completed 201905/16/2022 Problem Code: B35.3; Problem Code Type: ICD-10; BENJI CROWR null, [employer] 2 16:58:46 Constipa tion 72588967 Active 2019 Not Available [facility] 21:18:46 Well child 843729282 Completed 201907/26/2022 NATE GUZMÁN null, [employer] 3 17:14:39 Influenz a vaccine needed 57347912654 06 Completed 201911/28/2020 Problem Code: Z23; Problem Code Type: ICD-10; Not Available [facility] 21:18:49 [place] ht in childhoo d 310573096 Completed 201905/16/2022 Problem Code: Z68.53; Problem Code Type: ICD-10; BENJI CROWR null, [employer] 16:58:46 Sunburn of first degree 655431437 Completed 201905/16/2022 Problem Code: L55.0; Problem Code Type: ICD-10; BENJI HERRERA null, [employer] 2 16:58:46 Nausea 949186562 Completed 201911/28/2020 Problem Code: R11.0; Problem Code Type: ICD-10; Not Available [facility] 21:18:48 Disorder of upper respirat ory system 288474901 Completed 201911/28/2020 Problem Code: J06.9; Problem Code Type: ICD-10; BENJI MYNEAR null, [employer] 16:58:46 Itching 974090536 Completed 202011/28/2020 Problem Code: L29.9; Problem Code Type: ICD-10; Not Available [facility] 21:18:47 Eruption 845929597 Completed 202011/28/2020 Problem Code: R21; Problem Code Type: ICD-10; BENJI MYNEAR null, [employer] 16:58:46 Eruption 207533328 Completed 202005/16/2022 Problem Code: R21; Problem Code Type: ICD-10; BENJI MYNEAR null, [employer] 16:58:46 Chronic allergic conjunct ivitis 69118628 Completed 202003/08/2021 Problem Code: H10.45; Problem Code Type: ICD-10; Not Available [facility] 21:18:45 [place] ht in childo d 158342826 Completed 202009/14/2021 Problem Code: Z68.53; Problem Code Type: ICD-10; BENJI MYNEAR null, [employer] 16:58:46 Disorder of eye region 212887374 Completed 202005/16/2022 Problem Code: H57.8; Problem Code Type: ICD-10; BENJI MYNEAR null, [employer] 16:58:46 Low back pain 002531782 Completed 202005/16/2022 Problem Code: M54.5; Problem Code Type: ICD-10; BENJI MYLUCIAN null, [employer] 2 16:58:46 Uses combined oral contrace ption 777669853 Active 2020 Problem Code: Z30.41; Problem Code Type: ICD-10; Not Available [employer] 21:18:49 [place] ht in childhoo d 153850815 Completed 202009/14/2021 Problem Code: Z68.53; Problem Code Type: ICD-10; BENJI ENEDELIASIDNEYR null, [employer] 16:58:46 Well child 008914616 Completed 202009/14/2021 NATE GUZMÁN null, [employer] 3 17:14:39 Disorder of upper respirat ory system 018619633 Completed 202009/14/2021 Problem Code: J06.9; Problem Code Type: ICD-10; BENJI ENEDELIASIDNEYR null, [employer] 16:58:46 Acute pharyngi tis 031977097 Completed 202009/14/2021 Diamond Aguayo APRN [address] [place] [address], [address] , [employer] 5 14:29:38 Acute pharyngi tis 288359884 Completed 202111/30/2021 Diamond Aguayo APRN [address] [place] [address], [address] , [employer] 5 14:29:38 Bereavem ent 34179614 Completed 202105/16/2022 Problem Code: Z63.4; Problem Code Type: ICD-10; BENJI ENEDELIASIDNEYR null, [employer] 16:58:46 Hypertro phic scar 84982654 Completed 202105/16/2022 Problem Code: L91.0; Problem Code Type: ICD-10; BENJI rodriguez, [employer] 2 16:58:46 Swelling / lump finding Completed 202105/16/2022 Problem Code: R22.9; Problem Code Type: ICD-10; BENJI rodriguez, [employer] 2 16:58:46 Contact dermatit is 06890994 Completed 202202/14/2024 Almaz Quintanilla NP [address] [place] [address], [address] [place] [address] , [employer] 4 08:14:38 Acute urinary tract infectio n 190161713 Completed 202202/14/2024 Almaz Quintanilla NP [address] [place] [address], [address] [place] [address] , [employer] 4 08:14:35 Dysuria 25327988 Active 2024 Anahy Izquierdo jennifer, [employer] 5 17:06:15 Acute cystitis 30377864 Active 2024 Diamond Aguayo APRN [address] [place] [address], [address] [place] [address] , [employer] 5 11:36:31 Chronic constipa tion 388305358 Active 2024 Diamond Aguayo APRN [address] [place] [address], [address] [place] [address] , [employer] 5 11:46:18 Problem Notes None recorded. Medical Equipment None Reported. Allergies Allergen ID Allergen Name Allergen Category Reaction Reaction Severity Criticality Documentation Date Start Date Code Code System Note Provider Name and Address Organization Details Recorded Time 58053 Product containin g penicilli n (product) medicatio n Not available Not available Not available 03/27/2022 97860 8001 SNOMED NATE rodriguez, [employer] 3 17:13:52 Medications Name Sig Start [...] propionate 50 mcg/actuati on nasal spray,suspe nsion [place] 1 spray every day by intranasa l [...] 5 161.29 cm 23.5 kg/m2 68 % 66683.5 3 g 97.9 [degF] 76 /min 98 % 98 % 115/80 mm[Hg] BENJI HERRERA [employer] 5 11:28:11 Social History Question Answer Notes LastModified by Organizat ion Details LastModified Time Tobacco Smoking Status Never Smoker RUBEN rodriguez [employer] 03/07/2023 15:52:04 Do You Have An Advance Directive? No [email or web address] Information n ot available 06/19/2023 Is Your Home Air Conditioned? Yes Information not available 05/16/2022 Are You Blind Or Do You Have Difficulty Seeing? No [email or web address] Information n ot available 03/07/2023 What Is Your Level Of Caffeine Consumption? Moderate [email or web address] Information not available 03/07/2023 Are You A Caregiver? No [email or web address] Information not available 03/07/2023 In The 14 [...] Do You Have Serious Difficulty Hearing? No [email or web address] Information not available 03/07/2023 What Type Of Diet Are You Following? REGULAR Information n ot available 05/16/2022 Have There Been Any Changes To Your Family Or Social Situation? No [email or web address] Information no t available 03/07/2023 What Grade Are You In? XQ94341-4 [email or web address] Information not available 03/07/2023 Are There Any Guns Present In Your Home? No Information not available 05/16/2022 Which Of Your Hands Is Dominant? Right [email or web address] Information n ot available 03/07/2023 What Is Your Home Situation? Mother Information not available 05/16/2022 Do You Have A Medical Power Of Wave Soldering Machine Operator? No [email or web address] Information not available 06/19/2023 What Was The Date Of Your Most Recent Tobacco Screening? 04/14/2025 Information not available 04/14/2025 Do You Have Any Pets? Yes [email or web address] Information not available 03/07/2023 What Is Your Relationship Status? Single Information not available 05/16/2022 Have You Repeated Any Grades? No [email or web address] Information not available 03/07/2023 What Is The Name Of Your School? [employer] [email or web address] Information not available 03/07/2023 Do You Use Your Seat Belt Or Car Seat Routinely? Yes Information not available 05/16/2022 Do You Have Any Siblings? Yes [email or web address] Information not available 03/07/2023 Do You Have [...] Have Difficulty Walking Or Climbing Stairs? No [email or web address] Information not available 03/07/2023 Are You Currently [...] other forms of tobacco or nicotine? No [email or web address] Information not available 03/07/2023 What is your level of alcohol consumption? None Information not available 05/16/2022 Are you currently employed? No Information not available 05/16/2022 Do you have transportation difficulties? No [email or web address] Information not available 03/07/2023 Are you able to walk independently without assistance or assistive devices? YESWOREST [email or web address] Information not available 03/07/2023 Do you have difficulty doing errands alone? No [email or web address] Information not available 03/07/2023 Are you able to care for yourself independently? Yes Information not available 05/16/2022 Do you have difficulty dressing, bathing, grooming, or toileting? No [email or web address] Information not available 03/07/2023 Mental Status Question Answer Note LastModified by Organization D etails LastModified Time Do you have difficulty concentrating, remembering or making decisions? No [email or web address] Information no t available 03/07/2023 Family History [...] Vaccine Type Date Status Note Provider Nam e and Address Organization Details Recorded Time DTaP-IPV 9 completed Not Available [facility] 03/27/2022 23:48:35 MMRV 6 completed Not Available [facility] 03/27/2022 23:48:35 MMRV 9 completed Not Available [facility] 03/27/2022 23:48:35 Hep B, adolescent or pediatric 5 completed Not Available [facility] 03/27/2022 23:48:35 IPV 6 completed Not Available [facility] 03/27/2022 23:48:35 Hep A, ped/adol, 2 dose 7 completed Not Available [facility] 03/27/2022 23:48:35 Hep A, ped/adol, 2 dose 6 completed Not Available [facility] 03/27/2022 23:48:35 DTaP-Hep B-IPV 6 completed Not Available [employer] 03/27/2022 23:48:36 DTaP-Hep B-IPV 6 completed Not Available [facility] 03/27/2022 23:48:36 Tdap 8 completed Ibeth rodriguez [facility] [employer] 04/19/2023 17:05:31 Influenza, split virus, quadrivalent, preservative 8 completed Not Available [facility] 09/09/2023 10:16:40 pneumococcal conjugate PCV 7 6 completed Not Available [facility] 03/27/2022 23:48:36 pneumococcal conjugate PCV 7 7 completed Not Available [facility] 03/27/2022 23:48:36 pneumococcal conjugate PCV 7 6 completed Not Available [facility] 03/27/2022 23:48:36 pneumococcal conjugate PCV 7 6 completed Not Available [facility] 03/27/2022 23:48:36 meningococcal MCV4P 8 completed Ibeth rodriguez, [employer] 04/19/2023 17:05:31 HPV9 8 completed Not Available [facility] 09/09/2023 10:16:40 HPV9 0 completed Not Available [facility] 03/27/2022 23:48:37 DTaP 7 completed Not Available [facility] 09/09/2023 10:16:40 DTaP 6 completed Not Available [facility] 09/09/2023 10:16:40 meningococcal MCV4P 1 completed Not Available [facility] 09/09/2023 10:16:40 Hib (PRP-OMP) 6 completed Not Available [facility] 03/27/2022 23:48:37 Hib (PRP-OMP) 6 completed Not Available [facility] 03/27/2022 23:48:37 Hib-Hep B 6 completed Not Available [facility] 03/27/2022 23:48:37 Influenza, split virus, quadrivalent, PF 2 completed Diamond Aguayo, DANDY OPERATOR [address] [place], [address], [employer] 05/18/2022 16:07:47 Influenza, split virus, quadrivalent, preservative 8 completed RUBEN rodriguez, [employer] 03/07/2023 16:14:15 Hib, unspecified formulation 6 completed RUBEN rodriguez, [employer] 03/07/2023 16:14:15 HPV9 8 completed RUBEN PRATT null, [employer] 03/07/2023 16:14:16 Influenza, live, trivalent, intranasal, PF 9 completed RUBEN PRATT null, [employer] 03/07/2023 16:14:16 MMR 9 completed RUBEN PRATT null, [employer] 03/07/2023 16:14:16 COVID-19, mRNA, LNP-S, PF, 30 mcg/0.3 mL dose, shaheed-sucrose 2 completed RUBEN PRATT null, [employer] 03/07/2023 16:14:16 varicella 9 completed RUBEN PRATT null, [employer] 03/07/2023 16:14:16 Influenza, split virus, trivalent, preservative 0 completed RUBEN PRATT null, [employer] 03/07/2023 16:14:16 Influenza, split virus, trivalent, preservative 0 completed [employer] null, [employer] 03/07/2023 16:14:16 Meningococcal MCV4O 1 completed RUBEN PRATT null, [employer] 03/07/2023 16:14:16 DTaP, unspecified formulation 7 completed RUBEN PRATT null, [employer] 03/07/2023 16:14:16 DTaP, unspecified formulation 6 completed RUBEN PRATT null, [employer] 03/07/2023 16:14:16 Past Encounters Encounter ID Performer Location Encounter Start Date Encounter Closed Date Diagnosis/Indication Diagnosis SNOMED-CT Code Diagnosis ICD10 Code Diagnosis IMO Codes Diagnosis Note [id number] Diamond Aguayo APRN [address] [address] 04/14/2025 11:08:26 04/14/2025 14:02:52 Acute cystitis [id number] N30.01 [id number] Monet Pritchard, female patient with history of scoliosis and recurrent urinary tract infections (UTIs) in October and November, presents with symptoms suggestive of another UTI. Chronic constipation [id number] K59.09 [id number] Health Concerns Section Related Observation LastModified by Organization Detai ls LastModified Time None Recorded Concern Status LastModified by Organization Details LastModified Time None Recorded Payers Encounter Date Sequence Insurance Name Policy Number Policy Stevens Covered Member ID Stevens Member ID Guarantor Name 04/14/2025 1 [facility] (MEDICAID HMO) Monet Pritchard [id number] Elizabethalexandria Browne Notes Date Note Type Note Provider Name and Address Organization Details Recorded Time 04/14/2025 text/html ROS as noted in the [...] status. LMP 04/12/25. Diamond Aguayo APRN [address] [facility], [place], [address], [facility] [employer] 04/14/2025 12:00:59 OBGyn Episode No OBEpisode recorded.
--- OUTSIDE RECORDS SUMMARY | 2025-05-26 14:07 | XMS_ITS | Clinical Summary ---
Author Organization Healthcare Address [address] [place] [address] Care Team Providers Care Skills Instructor Name Role Phone Pcp, No Primary Care Provider Unavailabl e Allergies No known active allergies Medications No known medications Active Problems No known active problems Social History Tobacco Use Types Packs/Day Years Used Date Smoking Tobacco: Never Assessed Comments Unknown Sex and Gender Information Value Date Recorded Sex Assigned at Not on file Legal Sex Female 8:54 PM EDT Gender Identity Not on file Sexual Orientation Not on file Last Filed Vital Signs Vital Sign Reading Time Taken Comments Blood Pressure 132/80 06/05/2022 9:35 AM EST Pulse 70 06/05/2022 9:35 AM EST Temperature - - Respiratory Rate - - Oxygen Saturation - - Inhaled Oxygen Concentration - - Weight - - Height - - Body Mass Index - - Plan of Treatment Health Maintenance Due Date Last Done Comments Dental Oral Exam 2005 Dental Prophylaxis 2005 Dental X-Ray: Full Mouth 2005 [facility]-Depression Screening 2005 [facility]-HIV Screening 2005 [facility]-Hepatitis C Screening 2005 [facility]-Infant/Child/Adol SDOH Screenings 2005 [facility]- SDOH Screenings 2023 [facility]-Adult SDOH Screenings 2023 Dental X-Ray: Bitewings 10/10/2023 10/09/19, 05/01/2022, 04/23/2022 [facility]-AMNTO-13 Vaccine (2 season) 2025 03/15/2022 [facility]-Influenza Vaccine (#1) 03/22/202505/16, 05/15/2018, 06/28/2010, Additional history exists [facility]-DTaP,Tdap,and Td Vaccines (5 - Td or Tdap) 08/30/2027 08/30/2017, 04/20/2009, 2005, Additional history exists [facility]-Zoster Vaccines (1 of 2) 2055 04/20/2009, 04/20/2009, 03/11/2006 [facility]-HIB Vaccines Aged Out 03/11/2006, , 2005 No longer eligible based on patient's age to complete this topic [facility]-Hepatitis B Vaccines Completed 006, 2005, 2005, Additional history exists [facility]-Hepatitis A Vaccines Completed 09/26/2006, 02/20 [facility]-IPV Vaccines Completed 04/20/2009, , 2005, Additional history exists [facility]-Varicella Vaccines Completed 9, 04/20/2009, 03/11/2006 HPV Vaccines Completed 11/23/2019, 05/15/2018 [facility]-Pneumococcal Vaccine: Pediatrics (0 to 5 Years) and At-Risk Patients (6 to 49 Years) Aged Out No longer eligible based on patient's age to complete this topic [facility]-Rotavirus Vaccines Aged Out No lo nger eligible based on patient's age to complete this topic Procedures Procedure Name Priority Date/Time Associated Diagnosis Comments BITEWINGS - 4 RADIOGRAPHIC IMAGES Routine 10/08/2022 2:00 PM EDT Pain, dental from Last 3 Months or Most Recently Relevant to Health Maintenance Insurance [facility] MEDICAID DENTAL [employer] MEDICAID Care Teams Skills Instructor Relationship Specialty Start Date End Date Pcp, [place] [address] PCP - General Family Medicine 05/01/22
--- OUTSIDE RECORDS SUMMARY | 2025-05-26 14:07 | XMS_ITS | Clinical Summary ---
Author Organization [email or web address] [facility] Address [address] [place] [address] Care Team Providers Care Caser Up Name Role Phone Unavailable Primary Care Provider Unavailabl e Social History Tobacco Use Types Packs/Day Years Used Date Smoking Tobacco: Never Assessed Comments Unknown Sex and Gender Information Value Date Recorded Sex Assigned at Not on file Legal Sex Female 1:37 AM WIDE LOAD ESCORT Gender Identity Not on file Sexual Orientation Not on file Plan of Treatment Not on file Additional Source Comments IMPORTANT NOTICES REGARDING PATIENT RECORDS DISCLOSED THROUGH CARE EVERYWHERE:1. If the informationreleased to you contains information about AIDs or HIVtest results, that information has been disclosed to you from records whoseconfidentiality is protected by state law ([place]RS 214.625). State law proh ibitsyou from making any further disclosure of such information relating to AIDS orHIV without the specific written consent of the person to whom such informationpertains, or as otherwise permitted by state law. A general authorization forthe release of medical or other information is NOT sufficient for this purpose.2. If the information released to you contains information about alcohol ordrug abuse diagnosis, treatment for such abuse, or referrals for treatment, andif the release was made by a program as defined in 42 CFR 2.11, thisinformation has been disclosed to you from records protected by Federalconfidentiality rules ( TheFederal rules restrict any use of the information to criminally investigate orprosecute any alcohol or drug abuse patient.3. If the information released to you contains information about a person'smental health or chemical dependency, you may not redisclose or otherwisereveal information concerning the mental health or chemical dependency of thatperson, beyond the purpose for which the disclosure was made, without firstobtaining that person's specific written consent to the redisclosure. [id number].[facility]
--- OUTSIDE RECORDS SUMMARY | 2025-05-26 14:07 | XMS_ITS | Clinical Summary ---
Author Organization [facility] Address [address] [place], [place] [address] Care Team Providers Care Cork Insulation Installer Name Role Phone Dany Dinh MD Primary Care Provider Unavail able Social History Tobacco Use Types Packs/Day Years Used Date Smoking Tobacco: Never Assessed Comments Unknown Sex and Gender Information Value Date Recorded Sex Assigned at Not on file Legal Sex Female 4:16 PM EST Gender Identity Not on file Sexual Orientation Not on file Plan of Treatment Health Maintenance Due Date Last Done Comments HPV Vaccine (1 - 3-dose series) 2020 Hepatitis B (HepB) Vaccine ( 1 of 3 - 19+ 3-dose series) 2024 Tdap/Td Vaccine >11 yo (1 - Tdap) 2024 Annual SDOH Screening 07/22/2024 Depression Screening 07/22/2024 Influenza Vaccine (#1) 2025 Haemophilus Influenzae Type B (Hib) Vaccine Aged Out No longer eligible b ased on patient's age to complete this topic Hepatitis A (HepA) Vaccine Aged Out N o longer eligible based on patient's age to complete this topic Meningococcal ACWY Aged Out No longer eligible based on patient's age to complete this topic Pneumococcal Vaccines 6-49 yo Risk Aged Out No longer eligible based on patient's age to complete this topic Polio (IPV) Aged Out No longer eligi ble based on patient's age to complete this topic Rotavirus (RV) Vaccine Aged Out No lo nger eligible based on patient's age to complete this topic Care Teams Cork Insulation Installer Relationship Specialty Start Date End Date Dany Dinh MD PCP - General 05
[2025-05-26 15:05] LABS: HCG Qualitative, Serum Positive (Negative)
== END 2025-05-26 23:59 | disposition home or self-care (01) ==
LOC: LAB 14:01
PROVIDERS: PCP Nurse Practitioner Family; Visit Provider Obstetrics & Gynecology
DX: Z32.01 Encounter for pregnancy test, result positive (principal)
CPT/HCPCS: 36415; 84703

== ENCOUNTER 2025-06-06 02:14 | Emergency (ER) | payer MEDICAID, SELFPAY ==
--- OUTSIDE RECORDS SUMMARY | 2025-06-06 02:24 | XMS_ITS | Continuity of Care Document ---
Author Organization [employer] [facility] Address [address] [place] [id number] Care Team Providers Care Pilot Boat Deckhand Name Role Phone DIAMOND AGUAYO Primary Care [...] recorded. Lab urinalysis, dipstick 2024 025 [email or web address] [facility], [address] [place] [address], [place], [address], 11:38:10 culture, urine 2024 025 ALMA [facility] ([facility], [address] [place] [address], [place], [address], 02:06:46 Referral None recorded. Procedures None recorded. Surgeries None recorded. Imaging None recorded. Medication Orders docusate sodium 100 mg capsule 2024 [facility], [address] [place] [address], [address], 11:59:41 nitrofurant oin monohydrate /macrocryst als 100 mg capsule 2024 [facility], [address] [place] [address], [address], 05:01:49 Patient TargetsNo targets recorded. Patient InstructionsNo instructions recorded. Reason for Referral None Reported. Results Created Date Observation Date Name Description Value Unit Range Abnormal Flag Note LastModifiedBy Organization Detail LastModifiedTime 04/14/2004/19/2025 URINE CULTU RETAHMINA NE urine culture, routine Final report abnormal Not Available [facility] ([facility]) [address] [facility], [place], [address], 04/19/2025 02:06:46 04/14/2004/19/2025 URINE CULTU RETAHMINA NE [...] ng units per mL Not Available [facility] ([facility]) [address] [facility], [place], [address], 04/19/2025 02:06:46 04/14/2004/19/2025 URINE CULTU RE, ROUTI [...] S Vanco mycin S Not Available [facility] ([facility]) [address] [facility], [place], [address], 04/19/2025 02:06:46 04/14/2004/14/2025 urina lysis , dipst ick Leukocytes Modera te Not Available [address], [address], 04/14/2025 11:28:43 04/14/20 25 04/14/2025 urina lysis , dipst ick Nitrite negati ve Not Available [address], [address], 04/14/2025 11:28:43 04/14/20 25 04/14/2025 urina lysis , dipst ick Urobilinogen .2 Not Available [address], [address], 04/14/2025 11:28:43 04/14/20 25 04/14/2025 urina lysis , dipst ick Protein Trace Not Available [address], [address], 04/14/2025 11:28:43 04/14/2004/14/2025 urina lysis , dipst ick pH 6.0 Not Available [address], [address], 04/14/2025 11:28:43 04/14/20 25 04/14/2025 urina lysis , dipst ick Blood Non-He molyze d: Trace Not Available [address], [address], 04/14/2025 11:28:43 04/14/20 25 04/14/2025 urina lysis , dipst ick Specific [place] 1.025 Not Available [address], [address], 04/14/2025 11:28:43 04/14/20 25 04/14/2025 urina lysis , dipst ick Ketone Negati ve Not Available [address], [address], 04/14/2025 11:28:43 04/14/20 25 04/14/2025 urina lysis , dipst ick Bilirubin Negati ve Not Available [address], [address], 04/14/2025 11:28:43 04/14/2004/14/2025 urina lysis , dipst ick Glucose Negati ve Not Available [address], [address], 04/14/2025 11:28:43 04/14/2004/14/2025 urina lysis , dipst ick Appearance Slight ly Cloudy Not Available [address], [address], 04/14/2025 11:28:43 04/14/2004/14/2025 urina lysis , dipst ick Color Yellow Not Available [address], [address], 04/14/2025 11:28:43 Result Notes None recorded. Problems Name Problem SNOMED Code Status Onset Date Resolution Date Notes Provider Name and Address Organization Details Recorded Time Plane wart 006531404 Completed 201602/20/2018 Problem Code: B07.8; Problem Code Type: ICD-10; Not Available [facility] 21:18:44 Constipa tion 09812926 Completed 201602/20/2018 Not Available [facility] 21:18:47 Verruca vulgaris 30793124 Completed 201602/20/2018 Problem Code: 078.10; Problem Code Type: ICD-9; Not Available [facility] 21:18:51 Menorrha grecia 608561361 Completed 201703/03/2018 Not Available [facility] 21:18:51 Menometr orrhagia 099588581 Completed 201703/03/2018 Not Available [facility] 21:18:52 [place] [facility] 029216447 Completed 201703/08/2021 Problem Code: Z68.53; Problem Code Type: ICD-10; BENJI MCDANIELSNEAR null, [employer] 2 16:58:46 Acute pansinus itis 0202431 Completed 201706/26/2018 Problem Code: J01.40; Problem Code Type: ICD-10; Not Available [facility] 21:18:45 Acute sinusiti s 27343677 Completed 201706/26/2018 Problem Code: 461.8; Problem Code Type: ICD-9; Not Available [facility] 21:18:54 Tension- type headache 494942711 Completed 201707/10/2018 Problem Code: G44.209; Problem Code Type: ICD-10; Not Available [facility] 21:18:45 Psychoge sabra headache 58789829 Completed 201707/10/2018 Problem Code: 307.81; Problem Code Type: ICD-9; Not Available [facility] 21:18:53 Allergic contact dermatit is 928414809 Active 2018 Problem Code: L23; Problem Code Type: ICD-10; Not Available [facility] 21:18:50 Acute pharyngi tis 404686131 Completed 201811/23/2019 Diamond Aguayo APRN [address] [place] [address], [address] [facility] [employer] 5 14:29:38 Hypertro phy of tonsils AND adenoids 97809413 Completed 201805/16/2022 Problem Code: J35.3; Problem Code Type: ICD-10; BENJI ENEDELIANEAR null, [employer] 2 16:58:46 Eruption 758707373 Completed 201811/23/2019 Problem Code: R21; Problem Code Type: ICD-10; BENJI MCDANIELSNEAR null, [employer] 16:58:46 Disorder of upper respirat ory system 992264358 Completed 201805/16/2022 Problem Code: J06.9; Problem Code Type: ICD-10; BENJI HERRERA null, [employer] 16:58:46 Influenz a with gastroin testinal tract involvem ent 032038127 Completed 201911/23/2019 Problem Code: J10.2; Problem Code Type: ICD-10; Not Available [facility] 2 21:18:46 Acute pharyngi tis 714543882 Completed 201905/16/2022 Diamond Aguayo, GIS DATABASE ADMINISTRATOR [address] [place] [address], [address] , [employer] 5 14:29:38 Tinea pedis 0628073 Completed 201905/16/2022 Problem Code: B35.3; Problem Code Type: ICD-10; BENJI CROWR null, [employer] 2 16:58:46 Constipa tion 99541282 Active 2019 Not Available [facility] 21:18:46 Well child 788004213 Completed 201907/26/2022 NATE GUZMÁN null, [employer] 3 17:14:39 Influenz a vaccine needed 80374635851 06 Completed 201911/28/2020 Problem Code: Z23; Problem Code Type: ICD-10; Not Available [facility] 21:18:49 [place] ht in childhoo d 479135604 Completed 201905/16/2022 Problem Code: Z68.53; Problem Code Type: ICD-10; BENJI CROWR null, [employer] 16:58:46 Sunburn of first degree 528794577 Completed 201905/16/2022 Problem Code: L55.0; Problem Code Type: ICD-10; BENJI HERRERA null, [employer] 2 16:58:46 Nausea 423397035 Completed 201911/28/2020 Problem Code: R11.0; Problem Code Type: ICD-10; Not Available [facility] 21:18:48 Disorder of upper respirat ory system 003113084 Completed 201911/28/2020 Problem Code: J06.9; Problem Code Type: ICD-10; BENJI MYNEAR null, [employer] 16:58:46 Itching 004019415 Completed 202011/28/2020 Problem Code: L29.9; Problem Code Type: ICD-10; Not Available [facility] 21:18:47 Eruption 675932576 Completed 202011/28/2020 Problem Code: R21; Problem Code Type: ICD-10; BENJI MYNEAR null, [employer] 16:58:46 Eruption 969235383 Completed 202005/16/2022 Problem Code: R21; Problem Code Type: ICD-10; BENJI MYNEAR null, [employer] 16:58:46 Chronic allergic conjunct ivitis 63871745 Completed 202003/08/2021 Problem Code: H10.45; Problem Code Type: ICD-10; Not Available [facility] 21:18:45 [place] ht in childo d 926553732 Completed 202009/14/2021 Problem Code: Z68.53; Problem Code Type: ICD-10; BENJI MYNEAR null, [employer] 16:58:46 Disorder of eye region 021044677 Completed 202005/16/2022 Problem Code: H57.8; Problem Code Type: ICD-10; BENJI MYNEAR null, [employer] 16:58:46 Low back pain 248480910 Completed 202005/16/2022 Problem Code: M54.5; Problem Code Type: ICD-10; BENJI MYLUCIAN null, [employer] 2 16:58:46 Uses combined oral contrace ption 233537428 Active 2020 Problem Code: Z30.41; Problem Code Type: ICD-10; Not Available [facility] 21:18:49 Over[place] ht in childhoo d 046680114 Completed 202009/14/2021 Problem Code: Z68.53; Problem Code Type: ICD-10; BENJI ENEDELIASIDNEYR null, [employer] 16:58:46 Well child 375238171 Completed 202009/14/2021 NATE GUZMÁN null, [employer] 3 17:14:39 Disorder of upper respirat ory system 685180126 Completed 202009/14/2021 Problem Code: J06.9; Problem Code Type: ICD-10; BENJI ENEDELIASIDNEYR null, [employer] 16:58:46 Acute pharyngi tis 427227106 Completed 202009/14/2021 Diamond Aguayo APRN [address] [place] [address], [address] , [employer] 5 14:29:38 Acute pharyngi tis 805686178 Completed 202111/30/2021 Diamond Aguayo APRN [address] [place] [address], [address] , [employer] 5 14:29:38 Bereavem ent 28713839 Completed 202105/16/2022 Problem Code: Z63.4; Problem Code Type: ICD-10; BENJI ENEDELIASIDNEYR null, [employer] 16:58:46 Hypertro phic scar 83618793 Completed 202105/16/2022 Problem Code: L91.0; Problem Code Type: ICD-10; BENJI rodriguez, [employer] 2 16:58:46 Swelling / lump finding Completed 202105/16/2022 Problem Code: R22.9; Problem Code Type: ICD-10; BENJI rodriguez, [employer] 2 16:58:46 Contact dermatit is 66968889 Completed 202202/14/2024 Almaz Quintanilla NP [address] [place] [address], [address] [place] [address] , [employer] 4 08:14:38 Acute urinary tract infectio n 977337650 Completed 202202/14/2024 Almaz Quintanilla NP [address] [place] [address], [address] [place] [address] , [employer] 4 08:14:35 Dysuria 83354776 Active 2024 Anahy Izquierdo jennifer, [employer] 5 17:06:15 Acute cystitis 84503443 Active 2024 Diamond Aguayo APRN [address] [place] [address], [address] [place] [address] , [employer] 5 11:36:31 Chronic constipa tion 006855518 Active 2024 Diamond Aguayo APRN [address] [place] [address], [address] [place] [address] , [employer] 5 11:46:18 Problem Notes None recorded. Medical Equipment None Reported. Allergies Allergen ID Allergen Name Allergen Category Reaction Reaction Severity Criticality Documentation Date Start Date Code Code System Note Provider Name and Address Organization Details Recorded Time 79631 Product containin g penicilli n (product) medicatio n Not available Not available Not available 03/27/2022 82013 8001 SNOMED NATE rodrgiuez, [employer] 3 17:13:52 Medications Name Sig Start [...] propionate 50 mcg/actuati on nasal spray,suspe nsion [place] 1 spray every day by intranasa l [...] 5 161.29 cm 23.5 kg/m2 68 % 52247.5 3 g 97.9 [degF] 76 /min 98 % 98 % 115/80 mm[Hg] BENJI HERRERA [employer] 5 11:28:11 Social History Question Answer Notes LastModified by Organizat ion Details LastModified Time Tobacco Smoking Status Never Smoker RUBEN rodriguez [employer] 03/07/2023 15:52:04 Do You Have An Advance Directive? No kelle Information n ot available 06/19/2023 Is Your Home Air Conditioned? Yes Information not available 05/16/2022 Are You Blind Or Do You Have Difficulty Seeing? No [email or web address] Information n ot available 03/07/2023 What Is Your Level Of Caffeine Consumption? Moderate [email or web address] Information not available 03/07/2023 Are You A Caregiver? No [email or web address] Information not available 03/07/2023 In The 14 [...] Do You Have Serious Difficulty Hearing? No [email or web address] Information not available 03/07/2023 What Type Of Diet Are You Following? REGULAR Information n ot available 05/16/2022 Have There Been Any Changes To Your Family Or Social Situation? No [email or web address] Information no t available 03/07/2023 What Grade Are You In? RS78606-3 [email or web address] Information not available 03/07/2023 Are There Any Guns Present In Your Home? No Information not available 05/16/2022 Which Of Your Hands Is Dominant? Right [email or web address] Information n ot available 03/07/2023 What Is Your Home Situation? Mother Information not available 05/16/2022 Do You Have A Medical Power Of Plant Health Care Technician? No [email or web address] Information not available 06/19/2023 What Was The Date Of Your Most Recent Tobacco Screening? 04/14/2025 Information not available 04/14/2025 Do You Have Any Pets? Yes [email or web address] Information not available 03/07/2023 What Is Your Relationship Status? Single Information not available 05/16/2022 Have You Repeated Any Grades? No [email or web address] Information not available 03/07/2023 What Is The Name Of Your School? [employer] [email or web address] Information not available 03/07/2023 Do You Use Your Seat Belt Or Car Seat Routinely? Yes Information not available 05/16/2022 Do You Have Any Siblings? Yes [email or web address] Information not available 03/07/2023 Do You Have [...] Have Difficulty Walking Or Climbing Stairs? No [email or web address] Information not available 03/07/2023 Are You Currently [...] other forms of tobacco or nicotine? No [email or web address] Information not available 03/07/2023 What is your level of alcohol consumption? None Information not available 05/16/2022 Are you currently employed? No Information not available 05/16/2022 Do you have transportation difficulties? No [email or web address] Information not available 03/07/2023 Are you able to walk independently without assistance or assistive devices? YESWOREST [email or web address] Information not available 03/07/2023 Do you have difficulty doing errands alone? No [email or web address] Information not available 03/07/2023 Are you able to care for yourself independently? Yes Information not available 05/16/2022 Do you have difficulty dressing, bathing, grooming, or toileting? No [email or web address] Information not available 03/07/2023 Mental Status Question Answer Note LastModified by Organization D etails LastModified Time Do you have difficulty concentrating, remembering or making decisions? No [email or web address] Information no t available 03/07/2023 Family History Relationship Description Onset Age of this Age Resolved Age Notes LastModified by Organization Details LastModified Time Father No current problems or disability [email or web address] Not available 05/16 16:59:29 Mother Drug abuse [email or web address] Not availabl e 05/16/2022 16:59:53 Medical History Condition Response Allergies (Food, seasonal, environmental ) Y Emergency room visit since last appointm ent. N Hospitalizations N Gynecological History Statement/Question Response Date of Last Pap Smear Most Recent Mammogram Date of LMP 01/20/2024 Obstetrics History GPAL:G 0 P 0 0 0 0 Immunizations Vaccine Type Date Status Note Provider Nam e and Address Organization Details Recorded Time DTaP-IPV 9 completed Not Available [facility] 03/27/2022 23:48:35 MMRV 6 completed Not Available [facility] 03/27/2022 23:48:35 MMRV 9 completed Not Available [facility] 03/27/2022 23:48:35 Hep B, adolescent or pediatric 5 completed [facility] Available [facility] 03/27/2022 23:48:35 IPV 6 completed Not Available [facility] 03/27/2022 23:48:35 Hep A, ped/adol, 2 dose 7 completed Not Available [facility] 03/27/2022 23:48:35 Hep A, ped/adol, 2 dose 6 completed Not Available [facility] 03/27/2022 23:48:35 DTaP-Hep B-IPV 6 completed Not Available [facility] 03/27/2022 23:48:36 DTaP-Hep B-IPV 6 completed Not Available [facility] 03/27/2022 23:48:36 Tdap 8 completed Ibeth rodriguez [facility] [employer] 04/19/2023 17:05:31 Influenza, split virus, quadrivalent, preservative 8 completed Not Available [facility] 09/09/2023 10:16:40 pneumococcal conjugate PCV 7 6 completed Not Available [facility] 03/27/2022 23:48:36 pneumococcal conjugate PCV 7 7 completed Not Available [facility] 03/27/2022 23:48:36 pneumococcal conjugate PCV 7 6 completed Not Available [facility] 03/27/2022 23:48:36 pneumococcal conjugate PCV 7 6 completed Not Available [facility] 03/27/2022 23:48:36 meningococcal MCV4P 8 completed Ibeth rodriguez, [employer] 04/19/2023 17:05:31 HPV9 8 completed Not Available [facility] 09/09/2023 10:16:40 HPV9 0 completed Not Available [facility] 03/27/2022 23:48:37 DTaP 7 completed Not Available [facility] 09/09/2023 10:16:40 DTaP 6 completed Not Available [facility] 09/09/2023 10:16:40 meningococcal MCV4P 1 completed Not Available [facility] 09/09/2023 10:16:40 Hib (PRP-OMP) 6 completed Not Available [facility] 03/27/2022 23:48:37 Hib (PRP-OMP) 6 completed Not Available [facility] 03/27/2022 23:48:37 Hib-Hep B 6 completed Not Available [facility] 03/27/2022 23:48:37 Influenza, split virus, quadrivalent, PF 2 completed Diamond Aguayo, GIS DATABASE ADMINISTRATOR [address] [place], [address], [employer] 05/18/2022 16:07:47 Influenza, split virus, quadrivalent, preservative 8 completed RUBEN rodriguez, [employer] 03/07/2023 16:14:15 Hib, unspecified formulation 6 completed RUBEN rodriguez, [employer] 03/07/2023 16:14:15 HPV9 8 completed RUBEN PRATT null, [employer] 03/07/2023 16:14:16 Influenza, live, trivalent, intranasal, PF 9 completed RUBEN PRATT null, [employer] 03/07/2023 16:14:16 MMR 9 completed RUBEN PRATT null, [employer] 03/07/2023 16:14:16 COVID-19, mRNA, LNP-S, PF, 30 mcg/0.3 mL dose, shaehed-sucrose 2 completed RUBEN PRATT null, [employer] 03/07/2023 16:14:16 varicella 9 completed RUBEN PRATT null, [employer] 03/07/2023 16:14:16 Influenza, split virus, trivalent, preservative 0 completed RUBEN PRATT null, [employer] 03/07/2023 16:14:16 Influenza, split virus, trivalent, preservative 0 completed [employer] null, [employer] 03/07/2023 16:14:16 Meningococcal MCV4O 1 completed RUBEN PRATT null, [employer] 03/07/2023 16:14:16 DTaP, unspecified formulation 7 completed RUBEN PRATT null, [employer] 03/07/2023 16:14:16 DTaP, unspecified formulation 6 completed RBUEN PRATT null, [employer] 03/07/2023 16:14:16 Past Encounters Encounter ID Performer Location Encounter Start Date Encounter Closed Date Diagnosis/Indication Diagnosis SNOMED-CT Code Diagnosis ICD10 Code Diagnosis IMO Codes Diagnosis Note [id number] Diamond Aguayo APRN [address] [address] 04/14/2025 11:08:26 04/14/2025 14:02:52 Acute cystitis 25231098 N30.01 [id number] Monet Pritchard, female patient with history of scoliosis and recurrent urinary tract infections (UTIs) in October and November, presents with symptoms suggestive of another UTI. Chronic constipation 236 090273 K59.09 [id number] Health Concerns Section Related Observation LastModified by Organization Detai ls LastModified Time None Recorded Concern Status LastModified by Organization Details LastModified Time None Recorded Payers Encounter Date Sequence Insurance Name Policy Number Policy Stevens Covered Member ID Stevens Member ID Guarantor Name 04/14/2025 1 [facility] (MEDICAID HMO) Monet Pritchard [id number] Elizabethalexandria Browne Notes Date Note Type Note [...] status. LMP 04/12/25. Diamond Aguayo APRN [address] [facility], [place], [address], [facility] 04/14/2025 12:00:59 OBGyn Episode No OBEpisode recorded.
--- OUTSIDE RECORDS SUMMARY | 2025-06-06 02:24 | XMS_ITS | Clinical Summary ---
Author Organization [facility] Address [address] [place], [place] [address] Care Team Providers Care Metal Pickling Equipment Operator Name Role Phone Dany Dinh MD Primary [...] age to complete this topic Care Teams Metal Pickling Equipment Operator Relationship Specialty Start Date End Date Dany Dinh MD PCP - General 05
--- OUTSIDE RECORDS SUMMARY | 2025-06-06 02:24 | XMS_ITS | Clinical Summary ---
Author Organization Healthcare Address [address] [place] [address] Care Team Providers Care Chemist Helper Name Role Phone Pcp, No Primary Care [...] [facility]-HIV Screening 2005 [facility]-Hepatitis C Screening 2005 [facility]-/Child/Adol SDOH Screenings 2005 [facility]- SDOH Screenings 2023 [facility]-Adult SDOH Screenings 2023 Dental X-Ray: Bitewings 10/10/2023 10/09/19, 05/01/2022, 04/23/2022 [id number] Vaccine (2 season) 2025 03/15/2022 [facility]-Influenza Vaccine [...] Most Recently Relevant to Health Maintenance Insurance [facility] MEDICAID DENTAL WELLC[employer] MEDICAID Care Teams Chemist Helper Relationship Specialty Start Date End Date Pcp, [place] [address] PCP - General Family Medicine 05/01/22
--- OUTSIDE RECORDS SUMMARY | 2025-06-06 02:24 | XMS_ITS | Clinical Summary ---
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 [id number].[facility]
--- OUTSIDE RECORDS SUMMARY | 2025-06-06 02:24 | XMS_ITS | Data Portability ---
Author Organization [employer] [place] [facility] [place] [address] [place] [address] Care Team Providers Care Boiler Testing Technician Name Role Phone DIAMOND AGUAYO Primary Care [...] None recorded. Lab urinalysis, dipstick [address], [address], 11:38:10 culture, urine [address] [facility]), [address] [place] [address], [address], 5 02:06:46 culture, urine [address] [facility]), [address] [place] [address], [address], 5 17:07:38 urinalysis, dipstick [address], [address], 5 17:50:42 CT + NG RNA, PCR, unspecified specimen 2024 025 Formerly named [facility], [address] [place] [address], [address], 5 17:07:37 urinalysis, dipstick [address], [address], 5 14:38:35 vaginal pathogens panel, BAUTISTA+probe, vaginal fluid [address] [facility]), [address] [place] [address], [address], 5 12:13:00 culture, urine 2024 025 Formerly named [facility], [address] [place] [address], [place], [address], 5 12:13:00 test, urine 2024 025 [email or web address] [facility], [place], [address] [place] [address], [address], 5 14:38:35 rapid flu (A+B) [address], [address], 4 12:49:34 rapid strep group A, throat [address], [address], 4 17:43:19 rapid SARS CoV 2 Ag, QL, IA, upper respiratory specimen 2023 024 [facility], [address] [place] [address], [address], 4 12:49:26 mononucleos is, heterophile Ab, blood [address], [address], 4 17:48:59 Referral gynecologis t referral - IUD placement 2024 025 [email or web address] Mer Cummings DO, [address], [place] [address], [place], [address], 5 08:51:13 Procedures None recorded. Surgeries None recorded. Imaging None recorded. Medication Orders docusate sodium 100 mg capsule 2024 025 [facility], [address] [place] [address], [address], 11:59:41 nitrofurant oin monohydrate /macrocryst als 100 mg capsule 2024 025 [facility], [address] [place] [address], [address], 05:01:49 Bactrim DS 800 mg-160 mg tablet 2024 025 [facility], [address] [place] [address], [address], 11:49:48 Bactrim DS 800 mg-160 mg tablet 2024 025 [facility], [address] [place] [address], [address], 11:28:15 cefdinir 300 mg capsule 2023 025 [facility], [address] [place] [address], [address], 15:10:49 Patient TargetsNo targets recorded. 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 Referral for Co ntraception care management IUD placement Referring Physician: Diamond Aguayo, Family Medicine, Encounter Date: 11/04/2024 Results Created Date Observation Date Name Description Value Unit Range Abnormal Flag Note LastModifiedBy Organization Detail LastModifiedTime 02/10/2002/10/2024 monon ucleo sis, heter ophil e Ab, blood [place] negati ve Not Available [address], [address], 02/10/2024 17:48:51 02/10/20 02/10/2024 rapid strep group A, throa t Strep negati ve Not Available [address], [address], 02/10/2024 16:54:48 02/12/20 24 02/12/2024 rapid SARS CoV 2 Ag, QL, IA, upper respi rator y speci men SARS CoV Ag negati ve Not Available [address], [address], 02/10/2024 16:54:49 02/12/20 24 02/12/2024 rapid flu (A+B) Flu A negati ve Not Available [address], [address], 02/10/2024 16:54:48 02/12/2002/12/2024 rapid flu (A+B) Flu B negati ve Not Available [address], [address], 02/10/2024 16:54:48 11/05/19 25 11/05/2024 NUSWA B VAGIN ITIS PLUS (VG+) atopobium vaginae Low - 0 score Not Available [facility] ([facility]) [address] [facility], [place], [address], 11/10/2024 12:13:00 11/05/19 25 11/05/2024 NUSWA B VAGIN ITIS PLUS (VG+) bvab 2 Low - 0 score Not Available [facility] ([facility]) [address] [facility], [place], [address], 11/10/2024 12:13:00 11/05/19 25 11/05/2024 NUSWA B [...] prese nce of BV. Not Available [facility] ([facility]) [address] [facility], [place], [address], 11/10/2024 12:13:00 11/05/19 25 11/05/2024 NUSWA B VAGIN ITIS PLUS (VG+) bon albicans, BAUTISTA Negati ve negati ve Not Available [facility] ([facility]) [address] [place], [address], 11/10/2024 12:13:00 11/05/19 25 11/05/2024 NUSWA B VAGIN ITIS PLUS (VG+) bon glabrata, BAUTISTA Negati ve negati ve Not Available [facility] ([facility]) [address] [place], [address], 11/10/2024 12:13:00 11/05/19 25 11/05/2024 NUSWA B VAGIN ITIS PLUS (VG+) trich vag by BAUTISTA Negati ve negati ve Not Available [facility] ([facility]) [address] [place], [address], 11/10/2024 12:13:00 11/05/19 25 11/05/2024 NUSWA B VAGIN ITIS PLUS (VG+) chlamydia trachomatis, BAUTISTA Negati ve negati ve Not Available [facility] ([facility]) [address] [place], [address], 11/10/2024 12:13:00 11/05/19 25 11/05/2024 NUSWA B VAGIN ITIS PLUS (VG+) neisseria gonorrhoeae, BAUTISTA Negati ve negati ve Not Available [facility] ([facility]) [address] [facility], [place], [address], 11/10/2024 12:13:00 11/05/19 25 11/10/2024 URINE CULTU RE, ROUTI NE urine culture, routine Final report abnormal Not Available [facility] ([facility]) [address] [facility], [place], [address], 11/10/2024 12:13:00 11/05/19 25 11/10/2024 URINE CULTU [...] -sulb actam , Piper acill in-ta zobac muleler *Oral cephe ms, such as: Cefac keny, [...] ng units per mL Not Available [facility] ([facility]) [address] [facility], [place], [address], 11/10/2024 12:13:00 11/05/19 25 11/10/2024 URINE CULTU [...] S Vanco mycin S Not Available [facility] ([facility]) [address] [facility], [place], [address], 11/10/2024 12:13:00 11/05/19 25 11/04/2024 urina lysis , dipst ick Leukocytes Modera te Not Available [address], [address], 11/04/2024 14:20:04 11/05/19 25 11/04/2024 urina lysis , dipst ick Nitrite positi ve Not Available [address], [address], 11/04/2024 14:20:04 11/05/19 25 11/04/2024 urina lysis , dipst ick Urobilinogen 1 Not Available [address], [address], 11/04/2024 14:20:04 11/05/19 25 11/04/2024 urina lysis , dipst ick Protein 100 Not Available [address], [address], 11/04/2024 14:20:04 11/05/19 25 11/04/2024 urina lysis , dipst ick pH 5.0 Not Available [address], [address], 11/04/2024 14:20:04 11/05/19 25 11/04/2024 urina lysis , dipst ick Blood Large Not Available [address], [address], 11/04/2024 14:20:04 11/05/1911/04/2024 urina lysis , dipst ick Specific Pass Christian 1.020 Not Available [address], [address], 11/04/2024 14:20:04 11/05/19 25 11/04/2024 urina lysis , dipst ick Ketone Negati ve Not Available [address], [address], 11/04/2024 14:20:04 11/05/19 25 11/04/2024 urina lysis , dipst ick Bilirubin Negati ve Not Available [address], [address], 11/04/2024 14:20:04 11/05/19 25 11/04/2024 urina lysis , dipst ick Glucose Negati ve Not Available [address], [address], 11/04/2024 14:20:04 11/05/19 25 11/04/2024 urina lysis , dipst ick Appearance Cloudy Not Available [address], [address], 11/04/2024 14:20:04 11/05/19 25 11/04/2024 urina lysis , dipst ick Color Dark Yellow Not Available [address], [address], 11/04/2024 14:20:04 11/05/19 25 11/04/2024 pregn laquita test, urine HCG negati ve Not Available [address], [address], 11/04/2024 14:20:17 12/08/19 25 12/07/2024 urina lysis , dipst ick Leukocytes Modera te Not Available [address], [address], 12/07/2024 17:06:20 12/08/19 25 12/07/2024 urina lysis , dipst ick Nitrite negati ve Not Available [address], [address], 12/07/2024 17:06:20 12/08/19 25 12/07/2024 urina lysis , dipst ick Urobilinogen .2 Not Available [address], [address], 12/07/2024 17:06:20 12/08/19 25 12/07/2024 urina lysis , dipst ick Protein 100 Not Available [address], [address], 12/07/2024 17:06:20 12/08/19 25 12/07/2024 urina lysis , dipst ick pH 5.5 Not Available [address], [address], 12/07/2024 17:06:20 12/08/19 25 12/07/2024 urina lysis , dipst ick Blood Modera te Not Available [address], [address], 12/07/2024 17:06:20 12/08/19 25 12/07/2024 urina lysis , dipst ick Specific Pass [place] 1.025 Not Available [address], [address], 12/07/2024 17:06:20 12/08/19 25 12/07/2024 urina lysis , dipst ick Ketone Trace Not Available [address], [address], 12/07/2024 17:06:20 12/08/19 25 12/07/2024 urina lysis , dipst ick Bilirubin Negati ve Not Available [address], [address], 12/07/2024 17:06:20 12/08/1912/07/2024 urina lysis , dipst ick Glucose Negati ve Not Available [address], [address], 12/07/2024 17:06:20 12/08/19 25 12/07/2024 urina lysis , dipst ick Appearance Cloudy Not Available [address], [address], 12/07/2024 17:06:20 12/08/19 25 12/07/2024 urina lysis , dipst ick Color Dark Yellow Not Available [address], [address], 12/07/2024 17:06:20 12/09/19 25 12/10/2024 CHLAM YDIA/ GC AMPLI FICAT ION chlamydia trachomatis, BAUTISTA Negati ve negati ve Not Available [facility] ([facility]) [address] [facility], [place], [address], 12/11/2024 17:07:37 12/09/19 25 12/10/2024 CHLAM YDIA/ GC AMPLI FICAT ION neisseria gonorrhoeae, BAUTISTA Negati ve negati ve Not Available [facility] ([facility]) [address] [facility], [place], [address], 12/11/2024 17:07:37 12/09/19 25 12/11/2024 URINE CULTU RE, ROUTI NE urine culture, routine Final report abnormal Not Available [facility] ([facility]) [address] [facility], [place], [address], 12/11/2024 17:07:38 12/09/19 25 12/11/2024 URINE CULTU [...] ng units per mL Not Available [facility] ([facility]) [address] [place], [address], 12/11/2024 17:07:38 12/09/19 25 12/11/2024 URINE CULTU [...] S Vanco mycin S Not Available [facility] ([facility]) [address] [facility], [place], [address], 12/11/2024 17:07:38 12/09/19 25 12/09/2024 PLEAS E NOTE please note Commen t The date and/o r time of colle ction was not indic ated on the requi sitio n as requi red by state and [place] dav[place] law. The date of recei pt of the speci men was used as the colle ction date if not suppl ied. Not Available [facility] ([facility]) [address] [facility], [place], [address], 12/11/2024 17:07:38 04/14/20 25 04/19/2025 URINE CULTU RE, ROUTI NE urine culture, routine Final report abnormal Not Available [facility] ([facility]) [address] [place], [address], 04/19/2025 02:06:46 04/14/2004/19/2025 URINE CULTU RE, ROUTI [...] ng units per mL Not Available [facility] ([facility]) [address] [facility], [place], [address], 04/19/2025 02:06:46 04/14/2004/19/2025 URINE CULTU RE, TAHMINA [...] S Vanco mycin S Not Available [facility] ([facility]) [address] [facility], [place], [address], 04/19/2025 02:06:46 04/14/20 25 04/14/2025 urina lysis , dipst ick Leukocytes Modera te Not Available [address], [address], 04/14/2025 11:28:43 04/14/20 25 04/14/2025 urina lysis , dipst ick Nitrite negati ve Not Available [address], [address], 04/14/2025 11:28:43 04/14/20 25 04/14/2025 urina lysis , dipst ick Urobilinogen .2 Not Available [address], [address], 04/14/2025 11:28:43 04/14/20 25 04/14/2025 urina lysis , dipst ick Protein Trace Not Available [address], [address], 04/14/2025 11:28:43 04/14/20 25 04/14/2025 urina lysis , dipst ick pH 6.0 Not Available [address], [address], 04/14/2025 11:28:43 04/14/20 25 04/14/2025 urina lysis , dipst ick Blood Non-He molyze d: Trace Not Available [address], [address], 04/14/2025 11:28:43 04/14/20 25 04/14/2025 urina lysis , dipst ick Specific Pass Christian 1.025 Not Available [address], [address], 04/14/2025 11:28:43 04/14/20 25 04/14/2025 urina lysis , dipst ick Ketone Negati ve Not Available [address], [address], 04/14/2025 11:28:43 04/14/20 25 04/14/2025 urina lysis , dipst ick Bilirubin Negati ve Not Available [address], [address], 04/14/2025 11:28:43 04/14/20 25 04/14/2025 urina lysis , dipst ick Glucose Negati ve Not Available [address], [address], 04/14/2025 11:28:43 04/14/20 25 04/14/2025 urina lysis , dipst ick Appearance Slight ly Cloudy Not Available [address], [address], 04/14/2025 11:28:43 04/14/2004/14/2025 urina lysis , dipst ick Color Yellow Not Available [address], [address], 04/14/2025 11:28:43 02/15/20 24 02/15/2024 XR, chest , 1 view No observ ation record ed. [email or web address] [facility] [address], [place], [place], [address], 03/05/2024 15:18:08 Result Notes None recorded. Problems Name Problem SNOMED Code Status Onset Date Resolution Date Notes Provider Name and Address Organization Details Recorded Time Plane wart 936492474 Completed 201602/20/2018 Problem Code: B07.8; Problem Code Type: ICD-10; Not Available [facility] 21:18:44 Constipa tion 79927041 Completed 201602/20/2018 Not Available [facility] 21:18:47 Verruca vulgaris 33511674 Completed 201602/20/2018 Problem Code: 078.10; Problem Code Type: ICD-9; Not Available [facility] 21:18:51 Menorrha grecia 316956433 Completed 201703/03/2018 Not Available [facility] 21:18:51 Menometr orrhagia 255169557 Completed 201703/03/2018 Not Available [facility] 21:18:52 Overweig ht in childhoo d 031413371 Completed 201703/08/2021 Problem Code: Z68.53; Problem Code Type: ICD-10; [place] Curtis [employer] 16:58:46 Acute pansinus itis 9757458 Completed 201706/26/2018 Problem Code: J01.40; Problem Code Type: ICD-10; Not Available [facility] 21:18:45 Acute sinusiti s 88101985 Completed 201706/26/2018 Problem Code: 461.8; Problem Code Type: ICD-9; Not Available [facility] 21:18:54 Tension- type headache 155147481 Completed 201707/10/2018 Problem Code: G44.209; Problem Code Type: ICD-10; Not Available [facility] 21:18:45 Psychoge sabra headache 55953099 Completed 201707/10/2018 Problem Code: 307.81; Problem Code Type: ICD-9; Not Available [facility] 21:18:53 Allergic contact dermatit is 820373065 Active 2018 Problem Code: L23; Problem Code Type: ICD-10; Not Available [facility] 21:18:50 Acute pharyngi tis 281191769 Completed 201811/23/2019 Diamond Aguayo APRN [address] [place], [address] , [employer] 5 14:29:38 Hypertro phy of tonsils AND adenoids 81110609 Completed 201805/16/2022 Problem Code: J35.3; Problem Code Type: ICD-10; BENJI MCDANIELSNEAR null, [employer] 16:58:46 Eruption 272571582 Completed 201811/23/2019 Problem Code: R21; Problem Code Type: ICD-10; BENJI MCDANIELSNEAR null, [employer] 16:58:46 Disorder of upper respirat ory system 355922550 Completed 201805/16/2022 Problem Code: J06.9; Problem Code Type: ICD-10; BENJI MCDANIELSNEAR null, [employer] 2 16:58:46 Influenz a with gastroin testinal tract involvem ent 534268745 Completed 201911/23/2019 Problem Code: J10.2; Problem Code Type: ICD-10; Not Available [facility] 21:18:46 Acute pharyngi tis 492650252 Completed 201905/16/2022 Diamond Aguayo APRN [address] [place], [address] , [employer] 5 14:29:38 Tinea pedis 7828552 Completed 201905/16/2022 Problem Code: B35.3; Problem Code Type: ICD-10; BENJI ENEDELIASIDNEYR null, [employer]. 2 16:58:46 Constipa tion 42195477 Active 2019 Not Available [facility] 21:18:46 Well child 118032827 Completed 201907/26/2022 NATE GUZMÁN null, [employer] 3 17:14:39 Influenz a vaccine needed 41729742505 06 Completed 201911/28/2020 Problem Code: Z23; Problem Code Type: ICD-10; Not Available [facility] 21:18:49 Overweig ht in childhoo d 669738304 Completed 201905/16/2022 Problem Code: Z68.53; Problem Code Type: ICD-10; BENJI ENEDELIANEAR null, [employer]. 16:58:46 Sunburn of first degree 917118440 Completed 201905/16/2022 Problem Code: L55.0; Problem Code Type: ICD-10; BENJI ENEDELIANEAR null, [employer] 16:58:46 Nausea 918066988 Completed 201911/28/2020 Problem Code: R11.0; Problem Code Type: ICD-10; Not Available [facility] 21:18:48 Disorder of upper respirat ory system 942608026 Completed 201911/28/2020 Problem Code: J06.9; Problem Code Type: ICD-10; BENJI ENEDELIANEAR null, [employer] 2 16:58:46 Itching 990165843 Completed 202011/28/2020 Problem Code: L29.9; Problem Code Type: ICD-10; Not Available [facility] 21:18:47 Eruption 277885074 Completed 202011/28/2020 Problem Code: R21; Problem Code Type: ICD-10; BENJI MYNEAR null, [employer] 2 16:58:46 Eruption 935748136 Completed 202005/16/2022 Problem Code: R21; Problem Code Type: ICD-10; BENJI HERRERA null, [employer] 2 16:58:46 Chronic allergic conjunct ivitis 05220116 Completed 202003/08/2021 Problem Code: H10.45; Problem Code Type: ICD-10; Not Available [facility] 21:18:45 Overweig ht in childhoo d 070032263 Completed 202009/14/2021 Problem Code: Z68.53; Problem Code Type: ICD-10; BENJI HERRERA null, [employer] 2 16:58:46 Disorder of eye region 561270577 Completed 202005/16/2022 Problem Code: H57.8; Problem Code Type: ICD-10; BENJI HERRERA null, [employer] 2 16:58:46 Low back pain 790969551 Completed 202005/16/2022 Problem Code: M54.5; Problem Code Type: ICD-10; BENJI HERRERA null, [employer] 2 16:58:46 Uses combined oral contrace ption 558726259 Active 2020 Problem Code: Z30.41; Problem Code Type: ICD-10; Not Available [facility] 21:18:49 Overweig ht in childhoo d 659430227 Completed 202009/14/2021 Problem Code: Z68.53; Problem Code Type: ICD-10; BENJI HERRERA null, [employer] 16:58:46 Well child 225788634 Completed 202009/14/2021 NATE GUZMÁN null, [employer] 3 17:14:39 Disorder of upper respirat ory system 449750442 Completed 202009/14/2021 Problem Code: J06.9; Problem Code Type: ICD-10; BENJI CROWR null, [email or web address] 2 16:58:46 Acute pharyngi tis 686450939 Completed 202009/14/2021 Diamond Aguayo APRN [address] [place] [address], [address] , [employer] 5 14:29:38 Acute pharyngi tis 305170845 Completed 202111/30/2021 Diamond Aguayo APRN [address] [place] [address], [address] , [employer] 5 14:29:38 Bereavem ent 37709568 Completed 202105/16/2022 Problem Code: Z63.4; Problem Code Type: ICD-10; BENJI MCDANIELSNEAR null, [employer] 2 16:58:46 Hypertro phic scar 28317863 Completed 202105/16/2022 Problem Code: L91.0; Problem Code Type: ICD-10; BENJI MCDANIELSNEAR null, [employer] 2 16:58:46 Swelling / lump finding Completed 202105/16/2022 Problem Code: R22.9; Problem Code Type: ICD-10; BENJI MCDANIELSNEAR null, [employer] 2 16:58:46 Contact dermatit is 04840222 Completed 202202/14/2024 Almaz Quintanilla NP [address] [place] [address], [address] , [employer] 4 08:14:38 Acute urinary tract infectio n 523397168 Completed 202202/14/2024 Almaz Quintanilla NP [address] [place] [address], [address] , [email or web address] 4 08:14:35 Dysuria 10448603 Active 2024 Anahy rodriguez, [employer] 5 17:06:15 Acute cystitis 70181846 Active 2024 Diamond Aguayo, DIAGNOSTICS TECH [address] [place], [address] , [email or web address] 5 11:36:31 Chronic constipa tion 241058089 Active 2024 Diamond Aguayo, DIAGNOSTICS TECH [address] [place], [address] , [email or web address] 5 11:46:18 Problem Notes None recorded. Medical Equipment None Reported. Allergies Allergen ID Allergen Name Allergen Category Reaction Reaction Severity Criticality Documentation Date Start Date Code Code System Note Provider Name and Address Organization Details Recorded Time 96770 Product containin g penicilli n (product) medicatio n Not available Not available Not available 03/27/2022 20831 8001 SNOMED NATE rodriguez, [place] [employer] 3 17:13:52 Medications Name Sig Start [...] propionate 50 mcg/actuati on nasal spray,suspe nsion [place] 1 spray every day by intranasa l [...] 5 161.29 cm 64 % 23 kg/m2 59363.4 7 g 98 [degF] 96 /min 98 % 98 % 118/80 mm[Hg] BENJI HERRERA [employer] 5 14:13:37 Date Recorded Body height Body mass index (BMI) Body mass index (BMI) [Percentile] Per age and sex Body weight Heart rate Oxygen saturation Oxygen saturation in Arterial blood by Pulse oximetry Systolic And Diastolic Provider Name and Address Organization Details Last Updated DateTime 5 161.29 cm 23.2 kg/m2 66 % 58185.7 9 g 76 /min 94 % 94 % 122/83 mm[Hg] Anahy Izquierdo [email or web address] 5 17:05:45 Date Recorded Body height Body mass index (BMI) [Percentile] Per age and sex Body mass index (BMI) Body weight Body temperature Heart rate Oxygen saturation Oxygen saturation in Arterial blood by Pulse oximetry Systolic And Diastolic Provider Name and Address Organization Details Last Updated DateTime 4 161.29 cm 91 % 28.1 kg/m2 05374.7 7 g 99.1 [degF] 107 /min 96 % 96 % 110/76 mm[Hg] Yvette Mclaughlin [email or web address] 4 16:54:23 Date Recorded Body height Body mass index (BMI) Body mass index (BMI) [Percentile] Per age and sex Body weight Body temperature Heart rate Oxygen saturation Oxygen saturation in Arterial blood by Pulse oximetry Systolic And Diastolic Provider Name and Address Organization Details Last Updated DateTime 4 161.29 cm 28.2 kg/m2 91 % 81780.5 3 g 99.9 [degF] 108 /min 95 % 95 % 106/75 mm[Hg] Ibeth Ruiz [employer] 4 17:06:06 Date Recorded Body height Body mass index (BMI) Body mass index (BMI) [Percentile] Per age and sex Body weight Body temperature Heart rate Oxygen saturation Oxygen saturation in Arterial blood by Pulse oximetry Systolic And Diastolic Provider Name and Address Organization Details Last Updated DateTime 5 161.29 cm 23.5 kg/m2 68 % 86453.5 3 g 97.9 [degF] 76 /min 98 % 98 % 115/80 mm[Hg] BENJI HERRERA [employer]. 5 11:28:11 Social History Question Answer Notes LastModified by Histrosizat ion Details LastModified Time Tobacco Smoking Status Never Smoker RUBEN SANTA rodriguez [employer]. 03/07/2023 15:52:04 Do You Have An Advance Directive? No [email or web address] Information n ot available 06/19/2023 Is Your Home Air Conditioned? Yes Information not available 05/16/2022 Are You Blind Or Do You Have Difficulty Seeing? No [email or web address] Information n ot available 03/07/2023 What Is Your Level Of Caffeine Consumption? Moderate [email or web address] Information not available 03/07/2023 Are You A Caregiver? No [email or web address] Information not available 03/07/2023 In The 14 [...] Do You Have Serious Difficulty Hearing? No [email or web address] Information not available 03/07/2023 What Type Of Diet Are You Following? REGULAR Information n ot available 05/16/2022 Have There Been Any Changes To Your Family Or Social Situation? No [email or web address] Information no t available 03/07/2023 What Grade Are You In? [id number] [email or web address] Information not available 03/07/2023 Are There Any Guns Present In Your Home? No Information not available 05/16/2022 Which Of Your Hands Is Dominant? Right [email or web address] Information n ot available 03/07/2023 What Is Your Home Situation? Mother Information not available 05/16/2022 Do You Have A Medical Power Of Systems Management Consultant? No [email or web address] Information not available 06/19/2023 What Was The Date Of Your Most Recent Tobacco Screening? 04/14/2025 Information not available 04/14/2025 Do You Have Any Pets? Yes [email or web address] Information not available 03/07/2023 What Is Your Relationship Status? Single Information not available 05/16/2022 Have You Repeated Any Grades? No [email or web address] Information not available 03/07/2023 What Is The Name Of Your School? [employer] [email or web address] Information not available 03/07/2023 Do You Use Your Seat Belt Or Car Seat Routinely? Yes Information not available 05/16/2022 Do You Have Any Siblings? Yes Information not available 03/07/2023 Do You Have [...] Have Difficulty Walking Or Climbing Stairs? No Information not available 03/07/2023 Are You Currently [...] other forms of tobacco or nicotine? No [email or web address] Information not available 03/07/2023 What is your level of alcohol consumption? None Information not available 05/16/2022 Are you currently employed? No Information not available 05/16/2022 Do you have transportation difficulties? No [email or web address] Information not available 03/07/2023 Are you able to walk independently without assistance or assistive devices? [employer] [email or web address] Information not available 03/07/2023 Do you have difficulty doing errands alone? No [email or web address] Information not available 03/07/2023 Are you able to care for yourself independently? Yes Information not available 05/16/2022 Do you have difficulty dressing, bathing, grooming, or toileting? No [email or web address] Information not available 03/07/2023 Mental Status Question Answer Note LastModified by Organization D etails LastModified Time Do you have difficulty concentrating, remembering or making decisions? No [email or web address] Information no t available 03/07/2023 Family History [...] Recorded Time DTaP-IPV 9 completed [facility] 03/27/2022 23:48:35 MMRV 6 completed Not Available [facility] 03/27/2022 23:48:35 MMRV 9 completed Not Available [facility] 03/27/2022 23:48:35 Hep B, adolescent or pediatric 5 completed Not Available [facility] 03/27/2022 23:48:35 IPV 6 completed Not Available [facility] 03/27/2022 23:48:35 Hep A, ped/adol, 2 dose 7 completed Not Available [facility] 03/27/2022 23:48:35 Hep A, ped/adol, 2 dose 6 completed Not Available [facility] 03/27/2022 23:48:35 DTaP-Hep B-IPV 6 completed Not Available [facility] 03/27/2022 23:48:36 DTaP-Hep B-IPV 6 completed Not Available [facility] 03/27/2022 23:48:36 Tdap 8 completed Ibeth rodriguez, [email or web address] 04/19/2023 17:05:31 Influenza, split virus, quadrivalent, preservative 8 completed Not Available [facility] 09/09/2023 10:16:40 pneumococcal conjugate PCV 7 6 completed Not Available [facility] 03/27/2022 23:48:36 pneumococcal conjugate PCV 7 7 completed Not Available [facility] 03/27/2022 23:48:36 pneumococcal conjugate PCV 7 6 completed Not Available [facility] 03/27/2022 23:48:36 pneumococcal conjugate PCV 7 6 completed Not Available [facility] 03/27/2022 23:48:36 meningococcal MCV4P 8 completed Ibeth rodriguez, [email or web address] 04/19/2023 17:05:31 HPV9 8 completed Not Available [facility] 09/09/2023 10:16:40 HPV9 0 completed Not Available [facility] 03/27/2022 23:48:37 DTaP 7 completed Not Available [facility] 09/09/2023 10:16:40 DTaP 6 completed Not Available [facility] 09/09/2023 10:16:40 meningococcal MCV4P 1 completed Not Available [facility] 09/09/2023 10:16:40 Hib (PRP-OMP) 6 completed Not Available [facility] 03/27/2022 23:48:37 Hib (PRP-OMP) 6 completed Not Available [facility] 03/27/2022 23:48:37 Hib-Hep B 6 completed Not Available [facility] 03/27/2022 23:48:37 Influenza, split virus, quadrivalent, PF 2 completed Diamond Aguayo, RADHA [address] [place] [address], [id number], [email or web address] 05/18/2022 16:07:47 Influenza, split virus, quadrivalent, preservative 8 completed RUBEN PRATT null, [email or web address] 03/07/2023 16:14:15 Hib, unspecified formulation 6 completed RUBEN PRATT null, [email or web address] 03/07/2023 16:14:15 HPV9 8 completed RUBEN PRATT null, [email or web address] 03/07/2023 16:14:16 Influenza, live, trivalent, intranasal, PF 9 completed RUBEN PRATT null, [email or web address] 03/07/2023 16:14:16 MMR 9 completed RUBEN PRATT null, [email or web address] 03/07/2023 16:14:16 COVID-19, mRNA, LNP-S, PF, 30 mcg/0.3 mL dose, shaheed-sucrose 2 completed RUBEN PRATT null, [email or web address] 03/07/2023 16:14:16 varicella 9 completed RUBEN PRATT null, [email or web address] 03/07/2023 16:14:16 Influenza, split virus, trivalent, preservative 0 completed RUBEN rodriguez, [place] [employer] 03/07/2023 16:14:16 Influenza, split virus, trivalent, preservative 0 completed RUBEN rodriguez, [place] [employer] 03/07/2023 16:14:16 Meningococcal MCV4O 1 completed RUBEN rodriguez, [place] [employer] 03/07/2023 16:14:16 DTaP, unspecified formulation 7 completed RUBEN rodriguez, [place] [employer] 03/07/2023 16:14:16 DTaP, unspecified formulation 6 completed RUBEN rodriguez, [place] [employer] 03/07/2023 16:14:16 Past Encounters Encounter ID Performer Location Encounter Start Date Encounter Closed Date Diagnosis/Indication Diagnosis SNOMED-CT Code Diagnosis ICD10 Code Diagnosis IMO Codes Diagnosis Note [id number] [place] [id number] 05/16/2022 16:34:54 05/16/2022 17:25:47 Well child 081105062 Z00.129 Surveillan ce of oral contraception 948028711 Z30.41 Thoracic back pain 42072 8004 M54.6 Instructed on home stretching program and proper body mechanics with good posture. Will obtain x-ray, and start physical therapy. Abnormal weight loss 267 077571 R63.4 She is a picky eater and has had poor nutritiona l choices, but does have good appetite. Has lost approximat kait 15 pounds over the past year unintentio shruthi. Administra tion of influenza vaccine 44156308 Z23 Allergic rhinitis 874511 04 J30.9 [id number] Dorota Quintanilla[address] 0 07/26/2022 17:07:25 07/26/2022 17:20:44 Conjunctivitis 3347762 H10.9 Normal bod y mass index 17339017 Z68.52 [id number] Dorota Quintanilla [place] [id number] 08/09/2022 16:57:54 08/10/2022 07:57:51 Pain in throat 593749773 R07.0 Normal bod y mass index 40551343 Z68.52 [id number] Dorota Quintanilla [place] [id number] 09/14/2022 16:04:11 09/14/2022 16:34:47 Conjunctivitis 2666971 H10.9 Cellulitis of periorbital region of left eye 4244599079 32922 L03.213 Normal bod y mass index 06664389 Z68.52 [id number] Jaylin Grimes [place] [phone] 11/05/2022 09:45:40 11/05/2022 10:36:43 Acute upper respiratory infection 15335558 J06.9 [id number] [place] [address] 03/07/2023 15:41:57 03/07/2023 17:22:11 Contact dermatitis 63694058 L25.9 [id number] Jaylin Grimes [place] [phone] 04/05/2023 14:19:21 04/08/2023 12:02:49 Acute upper respiratory infection 03994042 J06.9 Streptococ ayde sore throat 13522379 J02.0 Normal bod y mass index 09866595 Z68.24 [id number] Dorota Quintanilla [place] [id number] 04/19/2023 16:55:30 04/19/2023 17:47:39 Acute urinary tract infection 344742363 N39.0 High risk sexual behavior 046081607 Z72.51 Surveillan ce of oral contraception 156895925 Z30.41 Allergic rhinitis 605730 04 J30.9 Constipation 57247834 K5 9.00 Body mass index 20-24 - normal 354374402 Z68.24 [id number] MANUEL MARTINEZ, [facility] [place] [address] 06/19/2023 16:45:54 06/19/2023 17:33:24 Viral screening 968850540 Z11.59 Dysuria 48864225 R30.0 Acute urin trish tract infection 083145319 N39.0 [id number] [place] [address] 09/06/2023 16:28:43 09/06/2023 17:11:52 Acute urinary tract infection 772403289 N39.0 [id number] Richelle Velázquez DIAGNOSTICS TECH [place] [address] 09/09/2023 10:15:03 09/09/2023 14:33:29 Streptococcal sore throat 21170033 J02.0 Overweight in childhood 263869264 E66.3 [id number] Richelle Velázquez APRN [place] [address] 2 11/04/2023 11:23:47 11/08/2023 13:42:47 Seasonal allergic rhinitis 331501980 J30.2 Overweight in childhood 277947838 E66.3 [id number] Almaz Quintanilla NP [place] [address] 0 02/10/2024 16:36:14 02/14/2024 10:00:22 Acute pharyngitis 127775903 J02.9 Fever 187377891 R50.9 Viral syndrome 239879204 B34.9 [id number] Almaz Quintanilla NP [place] [address] 0 02/12/2024 16:54:41 02/14/2024 10:10:22 Fever 959491088 R50.9 Acute left otitis media 324028571 H66.92 [id number] [place] [address] 11/04/2024 14:06:59 11/04/2024 14:43:04 Dysuria 42418047 R30.0 Contracept ion care management 450636500 Z30.9 Has been taking OCP and doing well with those, but like to have an IUD placed. Adult heal th examination 734252351 Z00.00 Counseled regarding prevention of STD's . Counseled regarding contracept chance options . Advised avoidance of tobacco, alcohol, and drugs . Counseled regarding folic acid supplement ation, calcium needs and prevention of osteoporos is . BSE reviewed and recommende d. Body mass index 20-24 - normal 711453306 Z68.23 Acute urin trish tract infection 333488916 N39.0 Stop douching.P atient presents with symptoms of UTI. Results of dipstick were positive for UTI. Advised to drink clear fluids, reduce sexual activity, Tylenol for pain and take prescribed medication s as instructed . Patient encouraged to follow up within 1 week if not improving. [id number] Dorota Quintanilla[address] [address] 12/07/2024 16:35:26 12/07/2024 17:19:32 Dysuria 29610787 R30.0 69738 High risk heterosexual behavior 0442895136 66516 Z72.51 [id number] Acute urin trish tract infection 153138769 N39.0 829658 Body mass index 20-24 - normal 754043275 Z68.23 21403998 [id number] Diamond Aguayo[address] [address] 04/14/2025 11:08:26 04/14/2025 14:02:52 Acute cystitis 72526129 N30.01 [id number] Monet Pritchard, female patient with history of scoliosis and recurrent urinary tract infections (UTIs) in October and November, presents with symptoms suggestive of another UTI. Chronic constipation 236 942149 K59.09 [id number] Health Concerns Section Related Observation LastModified by Organization Detai ls LastModified Time None Recorded Concern Status LastModified by Organization Details LastModified Time None Recorded Advance Directives Directive N: Payers Insurance Date Sequence Insurance Name Policy Number Policy Stevens Covered Member ID Stevens Member ID Guarantor Name 05/13/2025 1 [employer] (MEDICAID HMO) Monet Pritchard [id number] Elizabeth Hollie 11/04/2024 1 *SELF PAY* Po lly Hollie 05/13/2025 [place] Monet Pritchard [id number] Elizabeth Hollie 05/15/2022 1 *SELF PAY* Po lly Hollie 04/14/2025 1 [employer] [place] (MEDICAID HMO) Monet Pritchard [id number] Elizabeth Hollie Notes Date Note Type Note Provider Name and Address Organization Details Recorded Time 02/10/2024 text/html Patient presents for sore throat. She was evaluated in the [facility] ER on Saturday night for sore [...] and ibuprofen PRN. Almaz Quintanilla NP [address] [place], [address], [email or web address] 02/14/2024 08:43:17 02/12/2024 text/html Ongoing sore throat, body aches and cough that seems to be getting worse. Also having ear pain that started to get worse yesterday. Denies SOA, chest pain. Has had fever on and off. Fatigue and just wants to lay around. Needs work excuse for today. Almaz Quintanilla NP [address] [place], [address], [employer] 02/14/2024 08:40:24 11/04/2024 text/html Annual WellnessReported by [...] on OCP, but would like referral to [facility] for IUD placement. Diamond Aguayo APRN [address] [place], [address], [facility] [employer] 11/04/2024 14:53:25 12/07/2024 text/html pt here [...] placed on 12/11 Dorota Quintanilla APRN [address] [place], [address], [email or web address] 12/07/2024 17:47:36 04/14/2025 text/html ROS as [...] status. LMP 04/12/25. Diamond Aguayo APRN [address] [place], [address], [email or web address] 04/14/2025 12:00:59 OBGyn Episode No OBEpisode recorded.
--- NOTE | 2025-06-06 02:26 | PC.NURSE ---
Dr Escobar at bedside for POCUS
[2025-06-06 02:32] LABS: Hematocrit 38.0 % (37.0-47.0); Hemoglobin 13.2 g/dL (12.2-16.2); Immature Granulocytes % 0.2 %; Mean Corpuscular HGB Conc 34.7 g/dL (31.8-35.4); Mean Corpuscular Hemoglobin 31.1 pg (27.0-31.2); Mean Corpuscular Volume 89.6 fl (81-99); Nucleated Red Blood Cells % 0 %; Platelet Count 212 K/mm3 (142-424); Red Blood Count 4.24 M/mm3 (4.20-5.40); Red Cell Distribution Width-SD 41.4 fL; White Blood Count 10.3 K/mm3 (4.5-13.0)
--- NOTE | 2025-06-06 02:38 | HMH.EDGENADL ---
Discharge Plan Disposition Patient Disposition: Home, Self-Care Condition: Good Prescriptions Prescriptions: New nitrofurantoin macrocrystal 100 mg capsule 100 mg PO BID 5 Days Qty: 10 0RF Rx Instructions: must administer with a meal/food No Action benzonatate 100 mg capsule 100 mg PO BID PRN (Reason: cough) Qty: 14 0RF Referrals Follow up/Referrals: Madhuri Aguayo [Primary Care Provider, Medical] - See instructions Activity Restrictions/Add. Instructions Additional Instructions/Restrictions: You were evaluated in the ER and are believed to be appropriate for discharge at this time. As recommended, please pick out hand and take a vitamin. Follow-up with OB in the next 24 hours as scheduled. It is very important you go to this appointment for reevaluation. Take the prescribed antibiotics as directed, do not skip doses, do not stop taking them early. Return to the ER with any new, worsening, or otherwise concerning symptoms as discussed including but not limited to heavy vaginal bleeding or you are passing clots or saturating more than 1 pad per hour. Clinical Impressions Clinical Impression: Vaginal bleeding affecting early , Asymptomatic bacteriuria Print Language Print Language: Slovenian Discharge ED Provider: Lalito Escobar General Adult HPI General Chief complaint: Vaginal Bleeding Stated complaint: 1st tri antepartum, spotting Time Seen by Provider: 06/06/25 02:18 History of Present Illness HPI narrative: 20-year-old female G1, P0 approximately 5 to 9 weeks (unclear because patient reports irregular periods) presents to the ER with complaints of small vaginal spotting. She states she had just a few spots but not anything when she wiped. No clots, she states yesterday she had a brief episode of low left-sided abdominal pain but has not had any of that pain in the last 24 hours. No nausea, vomiting, or diarrhea. Denies chest pain or difficulty breathing. Denies continued bleeding or passing any clots. She has not yet had her first OB appointment and states her first appointment is tomorrow, Saturday the . She denies any other complaints or concerns. No medications prior to arrival. She is not taking a . Related Data Previous Rx's ?Medication ?Instructions ?Recorded benzonatate 100 mg capsule 100 mg PO BID PRN cough #14 caps 02/16/24 nitrofurantoin macrocrystal 100 mg 100 mg PO BID 5 days #10 caps 06/06/25 capsule Allergies Allergy/AdvReac Type Severity Reaction Status Date / Time Penicillins Allergy Mild Verified 02/15/24 21:36 [facility] Disclaimer: The information contained in this section may have been updated after the patient was seen, as this information can be updated by other users. Social History (Updated 02/15/24 @ 22:45 by Galilea Wilson MD) Smoking Status: Never smoker alcohol intake: never current occupational status: student Travel in the last 8 weeks?: None Have you lived/traveled outside US in past 30 days?: No Contact w/someone who lives/traveled outside US past 30 days?: No Exposure to someone with infectious disease in past 14 days?: No Do you have a fever (greater than 100.4 F or 38 C)?: No Have you tested positive for COVID-19?: No Exposed to someone with COVID-19 in past 14 days?: No Do you have a sore throat?: No Do you have a cough?: No Do you have any weakness?: No Do you have any diarrhea?: No Are you experiencing any unusual bleeding?: Yes Do you have any muscle aches/pain?: No Do you have any abdominal pain?: No Are you experiencing loss of taste or smell?: No ROS Obtained: Yes Systems reviewed as appropriate & no additional complaints except as documented Per HPI Physical Exam General General appearance: alert and in no apparent distress Head Head exam: atraumatic and normocephalic Eye Eye exam: Present PERRL and EOMI ENT ENT exam: Present mucous membranes moist Neck Neck exam: Present normal inspection and full ROM Chest Chest inspection: Present symmetric chest wall rise Respiratory Respiratory exam: Present normal lung sounds bilaterally; Absent respiratory distress, wheezes or stridor Cardiovascular Cardiovascular exam: Present regular rate and normal rhythm Abdominal Exam Abdominal exam: Present soft; Absent distention, tenderness, guarding or rebound Extremities Exam Extremities exam: Present full ROM Neurological Exam Neurological exam: Present alert and oriented X3; Absent motor sensory deficit Psychiatric Psychiatric exam: Present normal affect and normal mood Skin Skin exam: Present warm and dry Medical Decision Making Medical Records Medical records reviewed: Yes I reviewed the patient's medical records. Screening: Per USPSTF and CDC recommendations, given the prevalence of disease in our region, it is our hospital?s policy to screen for HIV and viral Hepatitis for all patients aged 18 and over and those with ongoing risk factors. Soren Inquiry Pt receiving controlled substance: No Vital Signs: 06/06/25 02:59 Temperature 98.2 F Temperature Source Oral Pulse Rate [Right] 89 Respiratory Rate 20 Blood Pressure [Right Arm] 129/93 H Blood Pressure Mean [Right Arm] 105 02 Sat by Pulse Oximetry 95 Oxygen Delivery Method Room Air Lab Data Lab Results 06/06/25 02:25: WBC 10.3, RBC 4.24, Hgb 13.2, Hct 38.0, MCV 89.6, MCH 31.1, MCHC 34.7, RDW 12.6, Plt Count 212, MPV 10.1, Neut % (Auto) 54.8, Lymph % (Auto) 32.2, [place] % (Auto) 8.3, Eos % (Auto) 4.0, Baso % (Auto) 0.5, Neut # (Auto) 5.6, Lymph # (Auto) 3.3, [place] # (Auto) 0.9, Eos # (Auto) 0.4, Baso # (Auto) 0.1, Sodium 135 L, Potassium 4.0, Chloride 102, Carbon Dioxide 26, Anion Gap 11.0, BUN 14, Creatinine 0.70, Estimated GFR 107, Est GFR ( Amer) 129, Glucose 82, Calcium 9.4, Total Bilirubin 0.2, AST 31, ALT 13, Alkaline Phosphatase 63, Total Protein 7.2, Albumin 4.2, Globulin 3.0, Albumin/Globulin Ratio 1.4, HCG, Quant [id number] H 06/06/25 02:33: Blood Type O Positive 06/06/25 02:43: Urine Color Yellow, Urine Appearance Clear, Urine pH 6.0, Ur Specific [place] 1.025, Urine Protein Negative, Urine Glucose (UA) Negative, Urine Ketones Negative, Urine Blood Negative, Urine Nitrate Negative, Urine Bilirubin Negative, Urine Urobilinogen 0.2, Ur Leukocyte Esterase 2+ A, Urine RBC None, Urine WBC 10-20, Ur Squamous Epith Cells 5-10, Urine Bacteria Trace 06/06/25 02:25 06/06/25 02:25 Orders (Tests/Meds): ED MEDICATIONS Discontinued Medications Generic Name Dose Route Start Last Admin Trade Name Freq PRN Reason Stop Dose Admin Nitrofurantoin Macrocrystals 100 mg 06/06/25 03:46 Nitrofurantoin 100mg Capsule PO 06/06/25 03:47 ONCE ONE ORDERS Category Date Time Status ABO/RH Type Stat BBK 06/06/25 02:33 Completed POCUS Point of Care (ER Only) Stat Exams 06/06/25 02:18 Ordered Beta HCG, Quant [HCG,Quantitative] Stat Lab 06/06/25 02:25 Completed CBC w/Auto Diff [Complete Blood Count Auto Diff] Stat Lab 06/06/25 02:25 Completed CMP [Comprehensive Metabolic Panel] Stat Lab 06/06/25 02:25 Completed HIV Combo Stat Lab 06/06/25 02:25 Received Hepatitis C Ab Qual. W/ RFX Stat Lab 06/06/25 02:25 Received Urinalysis and Microscopic Stat Lab 06/06/25 02:43 Completed Urine Culture Stat Micro 06/06/25 02:43 Received Medical Decision Narrative: In summary, this 20-year-old female G1, P0 presents to the emergency department today with concerns of vaginal spotting in early . On initial evaluation patient is hemodynamically stable, afebrile, GCS 15, overall well-appearing with wrist capillary refill, benign cardiopulmonary exam, benign abdominal exam. Differential diagnosis includes but is not limited to intrauterine , ectopic , heterotopic , urinary tract infection, asymptomatic bacteriuria, subchorionic hemorrhage, miscarriage, among others. Based on these concerns, I ordered hematologic and serum labs, urinalysis, ABO Rh. I performed [id number] ultrasound at bedside demonstrating early live intrauterine . I am unable to measure heart rate but there does appear to be fluttering consistent with heartbeat. No pelvic free fluid appreciated. See procedure note for details. Labs personally reviewed demonstrate normal CBC, CMP nonactionable, quantitative hCG 86,404. UA with leukocyte esterase, 10-20 WBCs and trace bacteria is concerning for asymptomatic bacteriuria. Will treat with nitrofurantoin. Patient continues to rest comfortably, no additional bleeding or spotting. Hemodynamically stable. I believe she is appropriate for discharge at this time since she has follow-up with OB scheduled in the next 24 hours. She is comfortable with this plan. I prescribed nitrofurantoin for outpatient management of asymptomatic bacteriuria. I recommend that she take a vitamin. Patient was given instructions on symptomatic monitoring and management, follow up instructions, and return precautions for the emergency department. Patient indicated understanding and was discharged in stable condition. Procedures Miscellaneous Procedure Procedure Performed: Limited OB ultrasound Performed by Lalito Escobar MD Indication: Positive home test, vaginal spotting Identified structures: [-Uterus -Left adnexa -Right adnexa -Pouch of Tanvir] Findings: Uterus: Definitive IUP FHR: Unable to be measured but there is fluttering visible consistent with heartbeat Right adnexa: Normal Left adnexa: Normal Cul de sac: Normal Impression: -IUP: Present - heart rate: Unable to be measured but fluttering visible consistent with heartbeat -Ectopic : Not appreciated -Free fluid: Absent Images were saved to permanent archive The study was technically adequate CPT Transabdominal: 28652-66 This study was performed by me, and I personally interpreted all images/videos. Based on my clinical judgement, these images were adequate and did not necessitate further imaging. Critical Care Critical Care Time Critical Care Time: No
[2025-06-06 02:44] LABS: Albumin Level 4.2 g/dl (3.5-5.0); Chloride 102 mmol/L (98-107)
[2025-06-06 02:45] LABS: Potassium 4.0 mmoL/L (3.5-5.1); Sodium 135 mmol/L (136-145)
[2025-06-06 02:47] LABS: Alanine Aminotransferase 13 U/L (12-78); Anion Gap 11.0 mEq/L (5-15); Aspartate Amino Transferase 31 U/L (14-36); Blood Urea Nitrogen 14 mg/dl (7-17); Carbon Dioxide 26 mmol/L (22.0-30.0); Creatinine,Serum 0.70 mg/dl (0.52-1.04); Estimated Glomerular Filt Rate 107 ml/min (>60); GFR (African American) 129 ML/MIN (>60)
[2025-06-06 02:48] LABS: Albumin/Globulin Ratio 1.4 (1.1-1.8); Alkaline Phosphatase 63 U/L (38-126); Bilirubin,Total 0.2 mg/dl (0.2-1.3); Calcium 9.4 mg/dl (8.4-10.2); Globulin 3.0 g/dL (1.3-3.2); Glucose 82 mg/dl (74-100); Total Protein,Serum 7.2 g/dl (6.3-8.2)
[2025-06-06 02:51] LABS: Microscopic, Urine URINE MICROSCOPIC (MICROSCOPIC)
[2025-06-06 02:59] VITALS: BP 129/93; PULSE 89; RESP 20; TEMP 36.8; O2SAT 95; BMI 25.6
[2025-06-06 03:02] LABS: Bilirubin,Urine Negative (Negative); Color,Urine YELLOW (Yellow); Glucose,Urine (UA) Negative (Negative); Ketones,Urine Negative (Negative); Leukocyte Esterase,Urine 2+ (Negative); PH,Urine 6.0 (5.0-8.5); Protein,Urine Negative (Negative); Specific Gravity, Urine 1.025 (1.005-1.030); Urobilinogen,Urine 0.2 EU/dl (0.2)
[2025-06-06 03:43] LABS: Bacteria,Urine Trace /lpf
[2025-06-06 03:52] VITALS: BP 128/93; PULSE 89; RESP 20; TEMP 36.8; O2SAT 96
[2025-06-06] MEDS: NITROFURANTOIN 100MG CAPSULE 100 MG PO (03:54)
[2025-06-06 04:15] LABS: Hepatitis C Ab Qual. W/ RFX NEGATIVE (Negative)
--- NOTE | 2025-06-08 08:47 | PC.NURSE ---
Urine culture reviewed by Dr. Packer. No change in treatment plan at this time.
== END 2025-06-06 03:59 | disposition home or self-care (01) ==
PROVIDERS: Emergency Provider Emergency Medicine; PCP Nurse Practitioner Family
DX: O20.9 Hemorrhage in early pregnancy, unspecified (principal); R82.71 Bacteriuria; Z3A.01 Less than 8 weeks gestation of pregnancy
CPT/HCPCS: 80053; 81001; 84702; 85025; 86803; 86900; 86901; 87086; 87088; 87186; 87389; 99284

== ENCOUNTER 2025-06-07 16:30 | Outpatient (CLI) | payer MEDICAID, SELFPAY ==
[2025-06-07 18:04] LABS: Hematocrit 37.0 % (37.0-47.0); Hemoglobin 12.2 g/dL (12.2-16.2); Immature Granulocytes % 0.2 %; Mean Corpuscular HGB Conc 33.0 g/dL (31.8-35.4); Mean Corpuscular Hemoglobin 29.9 pg (27.0-31.2); Mean Corpuscular Volume 90.7 fl (81-99); Nucleated Red Blood Cells % 0 %; Platelet Count 205 K/mm3 (142-424); Red Blood Count 4.08 M/mm3 (4.20-5.40); Red Cell Distribution Width-SD 41.0 fL; White Blood Count 9.1 K/mm3 (4.5-13.0)
[2025-06-07 18:52] LABS: Hepatitis C Ab Qual. W/ RFX NEGATIVE (Negative)
--- OUTSIDE RECORDS SUMMARY | 2025-06-08 00:10 | XMS_ITS | Clinical Summary ---
Author Organization [employer] [facility] Address [address] [place] [address] Care Team Providers Care Lode Miner Blasting Name Role Phone Unavailable Primary Care Provider Unavailabl e Social History Tobacco Use Types Packs/Day Years Used Date Smoking Tobacco: Never Assessed Comments Unknown Sex and Gender Information Value Date Recorded Sex Assigned at Not on file Legal Sex Female 1:37 AM WEBSITE ADMIN Gender Identity Not on file Sexual Orientation [...] person's specific written consent to the redisclosure. [id number].[facility]
--- OUTSIDE RECORDS SUMMARY | 2025-06-08 00:10 | XMS_ITS | Clinical Summary ---
Author Organization [facility] Address [address] [place], [place] [id number] Care Team Providers Care Reservations Sales Supervisor Name Role Phone Dany Dinh MD Primary [...] age to complete this topic Care Teams Reservations Sales Supervisor Relationship Specialty Start Date End Date Dany Dinh MD PCP - General 05
--- OUTSIDE RECORDS SUMMARY | 2025-06-08 00:11 | XMS_ITS | Clinical Summary ---
Author Organization Healthcare Address [address] [place] [address] Care Team Providers Care Microarray Specialist Name Role Phone Pcp, No Primary Care [...] Dental X-Ray: [facility] 10/10/2023 10/09/19, 05/01/2022, 04/23/2022 [id number] Vaccine (2 season) 2025 03/15/2022 UKY-Influenza Vaccine [...] Most Recently Relevant to Health Maintenance Insurance [facility] MEDICAID DENTAL [employer] MEDICAID Care Teams Microarray Specialist Relationship Specialty Start Date End Date Pcp, [place] [address] PCP - General Family Medicine 05/01/22
[2025-06-08 14:50] LABS: RPR W/RFX Titers Nonreactive (Nonreactive)
[2025-06-09 05:19] LABS: Hepatitis B Surface Antigen Negative (Negative)
[2025-06-09 08:38] LABS: Rubella Antibodies, IgG 13.10 index (Immune >0.99)
[2025-06-09 22:17] LABS: Neisseria gonorrhoeae, NAA Negative (Negative)
== END 2025-06-07 23:59 | disposition home or self-care (01) ==
LOC: LAB 16:30
PROVIDERS: PCP Nurse Practitioner Family; Visit Provider Nurse Practitioner Obstetrics & Gynecology
DX: O20.9 Hemorrhage in early pregnancy, unspecified (principal); Z3A.00 Weeks of gestation of pregnancy not specified
CPT/HCPCS: 36415; 85025; 86592; 86762; 86787; 86803; 86850; 87340; 87389; 87491; 87591

== ENCOUNTER 2025-06-11 14:56 | Outpatient (CLI) | payer MEDICAID, SELFPAY ==
--- OUTSIDE RECORDS SUMMARY | 2025-06-11 14:59 | XMS_ITS | Continuity of Care Document ---
Author Organization [employer], [place] [facility] Address [address] [place] [id number] Care Team Providers Care After School Program Coordinator Name Role Phone DIAMOND AGUAYO Primary Care [...] recorded. Lab urinalysis, dipstick 2024 025 [email or web address] [place] [facility], [address] [place] [address], [place], [address], 11:38:10 culture, urine 2024 025 [place] [facility] ([facility], [address] [place] [address], [place], [address], 02:06:46 Referral None recorded. Procedures None recorded. Surgeries None recorded. Imaging None recorded. Medication Orders docusate sodium 100 mg capsule 2024 [facility], [address] [place] [address], [address], 11:59:41 nitrofurant oin monohydrate /macrocryst als 100 mg capsule 2024 [facility], [address] [place] [address], [address], 05:01:49 Patient TargetsNo targets recorded. Patient InstructionsNo instructions recorded. Reason for Referral None Reported. Results Created Date Observation Date Name Description Value Unit Range Abnormal Flag Note LastModifiedBy Organization Detail LastModifiedTime 04/14/2004/19/2025 URINE CULTU RETAHMINA NE urine culture, routine Final report abnormal Not Available [facility] ([facility]) [address] [facility], [place], [address], 04/19/2025 02:06:46 04/14/2004/19/2025 URINE CULTU RETAHMINA NE [...] [facility] ([facility]) [address] [facility], [place], [address], 04/19/2025 02:06:46 04/14/2004/19/2025 URINE CULTU RE, ROUTI [...] [facility] ([facility]) [address] [facility], [place], [address], 04/19/2025 02:06:46 04/14/2004/14/2025 urina lysis , dipst ick Leukocytes Modera te Not Available [address], [address], 04/14/2025 11:28:43 04/14/20 25 04/14/2025 urina lysis , dipst ick Nitrite negati ve Not Available [address], [address], 04/14/2025 11:28:43 04/14/20 25 04/14/2025 urina lysis , dipst ick Urobilinogen .2 Not Available [address], [address], 04/14/2025 11:28:43 04/14/20 25 04/14/2025 urina lysis , dipst ick Protein Trace Not Available [address], [address], 04/14/2025 11:28:43 04/14/2004/14/2025 urina lysis , dipst ick pH 6.0 Not Available [address], [address], 04/14/2025 11:28:43 04/14/20 25 04/14/2025 urina lysis , dipst ick Blood Non-He molyze d: Trace Not Available [address], [address], 04/14/2025 11:28:43 04/14/20 25 04/14/2025 urina lysis , dipst ick Specific [place] 1.025 Not Available [address], [address], 04/14/2025 11:28:43 04/14/20 25 04/14/2025 urina lysis , dipst ick Ketone Negati ve Not Available [address], [address], 04/14/2025 11:28:43 04/14/20 25 04/14/2025 urina lysis , dipst ick Bilirubin Negati ve Not Available [address], [address], 04/14/2025 11:28:43 04/14/2004/14/2025 urina lysis , dipst ick Glucose Negati ve Not Available [address], [address], 04/14/2025 11:28:43 04/14/2004/14/2025 urina lysis , dipst ick Appearance Slight ly Cloudy Not Available [address], [address], 04/14/2025 11:28:43 04/14/2004/14/2025 urina lysis , dipst ick Color Yellow Not Available [address], [address], 04/14/2025 11:28:43 Result Notes None recorded. Problems Name Problem SNOMED Code Status Onset Date Resolution Date Notes Provider Name and Address Organization Details Recorded Time Plane wart 377926232 Completed 201602/20/2018 Problem Code: B07.8; Problem Code Type: ICD-10; Not Available [facility] 21:18:44 Constipa tion 69332204 Completed 201602/20/2018 Not Available [facility] 21:18:47 Verruca vulgaris 96040601 Completed 201602/20/2018 Problem Code: 078.10; Problem Code Type: ICD-9; Not Available [facility] 21:18:51 Menorrha grecia 621642043 Completed 201703/03/2018 Not Available [facility] 21:18:51 Menometr orrhagia 777059259 Completed 201703/03/2018 Not Available [facility] 21:18:52 [place] [facility] d 836926183 Completed 201703/08/2021 Problem Code: Z68.53; Problem Code Type: ICD-10; BENJI MCDANIELSNEAR null, [employer] 2 16:58:46 Acute pansinus itis 7030536 Completed 201706/26/2018 Problem Code: J01.40; Problem Code Type: ICD-10; Not Available [facility] 21:18:45 Acute sinusiti s 89841397 Completed 201706/26/2018 Problem Code: 461.8; Problem Code Type: ICD-9; Not Available [facility] 21:18:54 Tension- type headache 423034507 Completed 201707/10/2018 Problem Code: G44.209; Problem Code Type: ICD-10; Not Available [facility] 21:18:45 Psychoge sabra headache 02040218 Completed 201707/10/2018 Problem Code: 307.81; Problem Code Type: ICD-9; Not Available [facility] 21:18:53 Allergic contact dermatit is 661304274 Active 2018 Problem Code: L23; Problem Code Type: ICD-10; Not Available [facility] 21:18:50 Acute pharyngi tis 963262870 Completed 201811/23/2019 Diamond Aguayo APRN [address] [place] [address], [address] [facility] [employer] 5 14:29:38 Hypertro phy of tonsils AND adenoids 27881299 Completed 201805/16/2022 Problem Code: J35.3; Problem Code Type: ICD-10; BENJI ENEDELIANEAR null, [employer] 2 16:58:46 Eruption 186314987 Completed 201811/23/2019 Problem Code: R21; Problem Code Type: ICD-10; BENJI MCDANIELSNEAR null, [employer] 16:58:46 Disorder of upper respirat ory system 611540140 Completed 201805/16/2022 Problem Code: J06.9; Problem Code Type: ICD-10; BENJI HERRERA null, [employer] 16:58:46 Influenz a with gastroin testinal tract involvem ent 101994502 Completed 201911/23/2019 Problem Code: J10.2; Problem Code Type: ICD-10; Not Available [facility] 2 21:18:46 Acute pharyngi tis 159153148 Completed 201905/16/2022 Diamond Aguayo, [employer] [address] [place] [address], [address] , [employer] 5 14:29:38 Tinea pedis 7381492 Completed 201905/16/2022 Problem Code: B35.3; Problem Code Type: ICD-10; BENJI CROWR null, [employer] 2 16:58:46 Constipa tion 36150180 Active 2019 Not Available [facility] 21:18:46 Well child 001171925 Completed 201907/26/2022 NATE GUZMÁN null, [employer] 3 17:14:39 Influenz a vaccine needed 54758198350 06 Completed 201911/28/2020 Problem Code: Z23; Problem Code Type: ICD-10; Not Available [facility] 21:18:49 [place] h[place] in child[facility] d 528502780 Completed 201905/16/2022 Problem Code: Z68.53; Problem Code Type: ICD-10; BENJI CROWR null, [employer] 16:58:46 Sunburn of first degree 593207742 Completed 201905/16/2022 Problem Code: L55.0; Problem Code Type: ICD-10; BENJI HERRERA null, [employer] 2 16:58:46 Nausea 689869299 Completed 201911/28/2020 Problem Code: R11.0; Problem Code Type: ICD-10; Not Available [facility] 21:18:48 Disorder of upper respirat ory system 290440421 Completed 201911/28/2020 Problem Code: J06.9; Problem Code Type: ICD-10; BENJI MYNEAR null, [employer] 16:58:46 Itching 304596400 Completed 202011/28/2020 Problem Code: L29.9; Problem Code Type: ICD-10; Not Available [facility] 21:18:47 Eruption 299738489 Completed 202011/28/2020 Problem Code: R21; Problem Code Type: ICD-10; BENJI MYNEAR null, [employer] 16:58:46 Eruption 900418697 Completed 202005/16/2022 Problem Code: R21; Problem Code Type: ICD-10; BENJI MYNEAR null, [employer] 16:58:46 Chronic allergic conjunct ivitis 14065159 Completed 202003/08/2021 Problem Code: H10.45; Problem Code Type: ICD-10; Not Available [facility] 21:18:45 [place] ht in childo d 900976735 Completed 202009/14/2021 Problem Code: Z68.53; Problem Code Type: ICD-10; BENJI MYNEAR null, [employer] 16:58:46 Disorder of eye region 642029675 Completed 202005/16/2022 Problem Code: H57.8; Problem Code Type: ICD-10; BENJI MYNEAR null, [employer] 16:58:46 Low back pain 338720493 Completed 202005/16/2022 Problem Code: M54.5; Problem Code Type: ICD-10; BENJI MYLUCIAN null, [employer] 2 16:58:46 Uses combined oral contrace ption 915386517 Active 2020 Problem Code: Z30.41; Problem Code Type: ICD-10; Not Available [facility] 21:18:49 [place] h[place] in childhoo d 360055981 Completed 202009/14/2021 Problem Code: Z68.53; Problem Code Type: ICD-10; BENJI ENEDELIASIDNEYR null, [employer] 16:58:46 Well child 730094072 Completed 202009/14/2021 NATE GUZMÁN null, [employer] 3 17:14:39 Disorder of upper respirat ory system 558897898 Completed 202009/14/2021 Problem Code: J06.9; Problem Code Type: ICD-10; BENJI ENEDELIASIDNEYR null, [employer] 16:58:46 Acute pharyngi tis 771225759 Completed 202009/14/2021 Diamond Aguayo APRN [address] [place] [address], [address] , [email or web address] 5 14:29:38 Acute pharyngi tis 944301598 Completed 202111/30/2021 Diamond Aguayo APRN [address] [place] [address], [address] , [employer] 5 14:29:38 Bereavem ent 08630414 Completed 202105/16/2022 Problem Code: Z63.4; Problem Code Type: ICD-10; BENJI ENEDELIASIDNEYR null, [employer] 16:58:46 Hypertro phic scar 21629885 Completed 202105/16/2022 Problem Code: L91.0; Problem Code Type: ICD-10; BENJI rodriguez, [employer] 2 16:58:46 Swelling / lump finding Completed 202105/16/2022 Problem Code: R22.9; Problem Code Type: ICD-10; BENJI rodriguez, [email or web address] 2 16:58:46 Contact dermatit is 23779206 Completed 202202/14/2024 Almaz Quintanilla NP [address] [place] [address], [address] [place] [address] , [employer] 4 08:14:38 Acute urinary tract infectio n 470054304 Completed 202202/14/2024 Almaz Quintanilla NP [address] [place] [address], [address] [place] [address] , [email or web address] 4 08:14:35 Dysuria 73211857 Active 2024 Anahy Izquierdo jennifer, [employer] 5 17:06:15 Acute cystitis 82877937 Active 2024 Diamond Aguayo APRN [address] [place] [address], [address] [place] [address] , [email or web address] 5 11:36:31 Chronic constipa tion 431041078 Active 2024 Diamond Aguayo APRN [address] [place] [address], [address] [place] [address] , [employer] 5 11:46:18 Problem Notes None recorded. Medical Equipment None Reported. Allergies Allergen ID Allergen Name Allergen Category Reaction Reaction Severity Criticality Documentation Date Start Date Code Code System Note Provider Name and Address Organization Details Recorded Time 04050 Product containin g penicilli n (product) medicatio n Not available Not available Not available 03/27/2022 68926 8001 SNOMED NATE rodriguez, [employer] 3 17:13:52 Medications Name Sig Start [...] propionate 50 mcg/actuati on nasal spray,suspe nsion [place] 1 spray every day by intranasa l [...] weight Body temperature Heart rate Oxygen saturation Systolic And Diastolic Provider Name and Address Organization Details Last Updated DateTime 5 161.29 cm 23.5 kg/m2 68 % 56778.5 3 g 97.9 [degF] 76 /min 98 % 115/80 mm[Hg] BENJI HERRERA [email or web address] 5 11:28:11 Social History Question Answer Notes LastModified by Organizat ion Details LastModified Time Tobacco Smoking Status Never Smoker RUBEN rodriguez [email or web address] 03/07/2023 15:52:04 Do You Have An Advance Directive? No [email or web address] Information n ot available 06/19/2023 Is Your Home Air Conditioned? Yes Information not available 05/16/2022 Are You Blind Or Do You Have Difficulty Seeing? No [email or web address] Information n ot available 03/07/2023 What Is Your Level Of Caffeine Consumption? Moderate [email or web address] Information not available 03/07/2023 Are You A Caregiver? No [email or web address] Information not available 03/07/2023 In The 14 [...] Do You Have Serious Difficulty Hearing? No [email or web address] Information not available 03/07/2023 What Type Of Diet Are You Following? REGULAR Information n ot available 05/16/2022 Have There Been Any Changes To Your Family Or Social Situation? No [email or web address] Information no t available 03/07/2023 What Grade Are You In? AF89211-2 [email or web address] Information not available 03/07/2023 Are There Any Guns Present In Your Home? No Information not available 05/16/2022 Which Of Your Hands Is Dominant? Right [email or web address] Information n ot available 03/07/2023 What Is Your Home Situation? Mother Information not available 05/16/2022 Do You Have A Medical Power Of Nurseryperson? No [email or web address] Information not available 06/19/2023 What Was The Date Of Your Most Recent Tobacco Screening? 04/14/2025 Information not available 04/14/2025 Do You Have Any Pets? Yes [email or web address] Information not available 03/07/2023 What Is Your Relationship Status? Single Information not available 05/16/2022 Have You Repeated Any Grades? No [email or web address] Information not available 03/07/2023 What Is The Name Of Your School? [employer] [email or web address] Information not available 03/07/2023 Do You Use [...] Have Difficulty Walking Or Climbing Stairs? No [email or web address] Information not available 03/07/2023 Are You Currently [...] other forms of tobacco or nicotine? No [email or web address] Information not available 03/07/2023 What is your level of alcohol consumption? None Information not available 05/16/2022 Are you currently employed? No Information not available 05/16/2022 Do you have transportation difficulties? No [email or web address] Information not available 03/07/2023 Are you able to walk independently without assistance or assistive devices? [employer] [email or web address] Information not available 03/07/2023 Do you have difficulty doing errands alone? No [email or web address] Information not available 03/07/2023 Are you able to care for yourself independently? Yes Information not available 05/16/2022 Do you have difficulty dressing, bathing, grooming, or toileting? No [email or web address] Information not available 03/07/2023 Mental Status Question Answer Note LastModified by Organization D etails LastModified Time Do you have difficulty concentrating, remembering or making decisions? No [email or web address] Information no t available 03/07/2023 Family History [...] Recorded Time DTaP-IPV 9 completed Not Available [facility] 03/27/2022 23:48:35 MMRV 6 completed Not Available [facility] 03/27/2022 23:48:35 MMRV 9 completed Not Available [facility] 03/27/2022 23:48:35 Hep B, adolescent or pediatric 5 completed Not Available [facility] 03/27/2022 23:48:35 IPV 6 completed Not Available [facility] 03/27/2022 23:48:35 Hep A, ped/adol, 2 dose 7 completed Not Available [facility] 03/27/2022 23:48:35 Hep A, ped/adol, 2 dose 6 completed Not Available [facility] 03/27/2022 23:48:35 DTaP-Hep B-IPV 6 completed Not Available [facility] 03/27/2022 23:48:36 DTaP-Hep B-IPV 6 completed Not Available [facility] 03/27/2022 23:48:36 Tdap 8 completed Ibeth rodriguez [facility] [employer] 04/19/2023 17:05:31 Influenza, split virus, quadrivalent, preservative 8 completed Not Available [facility] 09/09/2023 10:16:40 pneumococcal conjugate PCV 7 6 completed Not Available [facility] 03/27/2022 23:48:36 pneumococcal conjugate PCV 7 7 completed Not Available [facility] 03/27/2022 23:48:36 pneumococcal conjugate PCV 7 6 completed Not Available [facility] 03/27/2022 23:48:36 pneumococcal conjugate PCV 7 6 completed Not Available [facility] 03/27/2022 23:48:36 meningococcal MCV4P 8 completed Ibeth rodriguez, [email or web address] 04/19/2023 17:05:31 HPV9 8 completed Not Available [facility] 09/09/2023 10:16:40 HPV9 0 completed Not Available [facility] 03/27/2022 23:48:37 DTaP 7 completed Not Available [facility] 09/09/2023 10:16:40 DTaP 6 completed Not Available [facility] 09/09/2023 10:16:40 meningococcal MCV4P 1 completed Not Available [facility] 09/09/2023 10:16:40 Hib (PRP-OMP) 6 completed Not Available [facility] 03/27/2022 23:48:37 Hib (PRP-OMP) 6 completed Not Available [facility] 03/27/2022 23:48:37 Hib-Hep B 6 completed Not Available [facility] 03/27/2022 23:48:37 Influenza, split virus, quadrivalent, PF 2 completed Diamond Aguayo APRN [address] [place], [address], [email or web address] 05/18/2022 16:07:47 Influenza, split virus, quadrivalent, preservative 8 completed RUBEN rodriguez, [employer] 03/07/2023 16:14:15 Hib, unspecified formulation 6 completed RUBEN rodriguez, [employer] 03/07/2023 16:14:15 HPV9 8 completed RUBEN rodriguez, [employer] 03/07/2023 16:14:16 Influenza, live, trivalent, intranasal, PF 9 completed RUBEN PRATT null, [employer] 03/07/2023 16:14:16 MMR 9 completed RUBEN PRATT null, [employer] 03/07/2023 16:14:16 COVID-19, mRNA, LNP-S, PF, 30 mcg/0.3 mL dose, shaheed-sucrose 2 completed [place] [employer] 03/07/2023 16:14:16 varicella 9 completed [place] [employer] [place] [employer] 03/07/2023 16:14:16 Influenza, split virus, trivalent, preservative 0 completed [place]UB[place] [employer] [employer] 03/07/2023 16:14:16 Influenza, split virus, trivalent, preservative 0 completed [place] [employer] 03/07/2023 16:14:16 Meningococcal MCV4O 1 completed [place]UB[place] [employer] [employer] 03/07/2023 16:14:16 DTaP, unspecified formulation 7 completed [place]UB[place] [employer] [employer] 03/07/2023 16:14:16 DTaP, unspecified formulation 6 completed [place] [employer] 03/07/2023 16:14:16 Past Encounters Encounter ID Performer Location Encounter Start Date Encounter Closed Date Diagnosis/Indication Diagnosis SNOMED-CT Code Diagnosis ICD10 Code Diagnosis IMO Codes Diagnosis Note [id number] Diamond Aguayo APRN [address] [address] 04/14/2025 11:08:26 04/14/2025 14:02:52 Acute cystitis 89075317 N30.01 [id number] Monet Francheska, female patient with history of scoliosis and recurrent urinary tract infections (UTIs) in October and November, presents with symptoms suggestive of another UTI. Chronic constipation 236 928810 K59.09 [id number] Health Concerns Section Related Observation LastModified by Organization Detai ls LastModified Time None Recorded Concern Status LastModified by Organization Details LastModified Time None Recorded Payers Encounter Date Sequence Insurance Name Policy Number Policy Stevens Covered Member ID Stevens Member ID Guarantor Name 04/14/2025 1 [facility] (MEDICAID HMO) Monet Pritchard [id number] Elizabethalexandria Browne Notes Date Note Type Note [...] status. LMP 04/12/25. Diamond Aguayo APRN [address] [facility], [place], [address], [facility] [employer] 04/14/2025 12:00:59 OBGyn Episode No OBEpisode recorded.
--- NOTE | 2025-06-11 15:00 | US_ITS ---
PROCEDURE: US OB TRANSVAGINAL CLINICAL INDICATION: dates and viability COMPARISON: No exams were available for comparison FINDINGS: Transvaginal sonographic images of the pelvis were obtained. Her last menstrual period is unknown. An intrauterine gestational sac is present with a pole with a crown-rump length of 1.11cm This correlates to a gestational age of 7weeks 2days. QUE 01/26/2026 heart tones are present with an FHR of 149bpm. Yolk sac is noted. The yolk sac measures 4.4 mmmm. The right ovary is seen and appears normal. The left ovary is seen and appears normal. There is no fluid in the cul-de-sac. IMPRESSION: 1. Viable embryo within the uterine cavity. Heart rate activity seen. 2. Embryo measures 7 weeks 2 days and QUE will be 01/26/2026. 3. Both ovaries are seen and appear normal. 4. No fluid in the cul-de-sac. Dictated by: Cornelio Gonzalez MD 06/12/2025 08:31 Cornelio Gonzalez MD in OV 06/12/2025 08:31
--- OUTSIDE RECORDS SUMMARY | 2025-06-11 15:00 | XMS_ITS | Data Portability ---
Author Organization [employer] [place] - [facility] Address [address] [place] [address] Care Team Providers Care Animal Assisted Therapist Name Role Phone DIAMOND AGUAYO Primary Care Provider [phone] Assessment Encounter Date Assessment Date Assessment LastModified [...] None recorded. Lab urinalysis, dipstick [address], [address], 11:38:10 culture, urine 2024 025 [facility]), [address] [place] [address], [address], 5 02:06:46 culture, urine 2024 025 [facility]), [address] [place] [address], [address], 5 17:07:38 urinalysis, dipstick [address], [address], 5 17:50:42 CT + NG RNA, PCR, unspecified specimen 2024 025 [facility], [address] [place] [address], [address], 5 17:07:37 urinalysis, dipstick [address], [address], 5 14:38:35 vaginal pathogens panel, BAUTISTA+probe, vaginal fluid 2024 025 [facility]), [address] [place] [address], [address], 5 12:13:00 culture, urine 2024 025 [facility], [address] [place] [address], [place], [address], 5 12:13:00 test, urine 2024 025 [email or web address] [facility], [address] [place] [address], [address], 5 14:38:35 rapid flu (A+B) [address], [address], 4 12:49:34 rapid strep group A, throat [address], [address], 4 17:43:19 rapid SARS CoV 2 Ag, QL, [place], upper respiratory specimen 2023 024 [facility], [address] [place] [address], [address], 4 12:49:26 mononucleos is, heterophile Ab, blood [address], [address], 4 17:48:59 Referral gynecologis t referral - IUD placement 2024 025 [email or web address] Mer Cummings DO, [address], [place] [address], [place], [address], 5 08:51:13 Procedures None recorded. Surgeries None recorded. Imaging None recorded. Medication Orders docusate sodium 100 mg capsule 2024 025 [facility], [address] [place] [address], [address], 11:59:41 nitrofurant oin monohydrate /macrocryst als 100 mg capsule 2024 025 [facility], [address] [place] [address], [address], 05:01:49 Bactrim DS 800 mg-160 mg tablet 2024 025 [facility], [address] [place] [address], [address], 11:49:48 Bactrim DS 800 mg-160 mg tablet 2024 025 [facility], [address] [place] [address], [address], 11:28:15 cefdinir 300 mg capsule 2023 025 [facility], [address] [place] [address], [address], 15:10:49 Patient TargetsNo targets recorded. 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 Referral for Co ntraception care management IUD placement Referring Physician: Diamond Aguayo, Family Medicine, Encounter Date: 11/04/2024 Results Created Date Observation Date Name Description Value Unit Range Abnormal Flag Note LastModifiedBy Organization Detail LastModifiedTime 02/10/2002/10/2024 monon ucleo sis, heter ophil e Ab, blood [place] negati ve Not Available [address], [address], 02/10/2024 17:48:51 02/10/20 02/10/2024 rapid strep group A, throa t Strep negati ve Not Available [address], [address], 02/10/2024 16:54:48 02/12/20 24 02/12/2024 rapid SARS CoV 2 Ag, QL, [place], upper respi rator y speci men SARS CoV Ag negati ve Not Available [address], [address], 02/10/2024 16:54:49 02/12/20 24 02/12/2024 rapid flu (A+B) Flu A negati ve Not Available [address], [address], 02/10/2024 16:54:48 02/12/2002/12/2024 rapid flu (A+B) Flu B negati ve Not Available [address], [address], 02/10/2024 16:54:48 11/05/19 25 11/05/2024 NUSWA B VAGIN ITIS PLUS (VG+) atopobium vaginae Low - 0 score Not Available [facility] [place] [facility] [address] [facility], [place], [address], 11/10/2024 12:13:00 11/05/19 25 11/05/2024 NUSWA B VAGIN ITIS PLUS (VG+) bvab 2 Low - 0 score Not Available [facility] [place] [place] [facility] [address] [facility], [place], [address], 11/10/2024 12:13:00 11/05/19 25 11/05/2024 NUSWA B [...] prese nce of BV. Not Available [facility] [place] [place] [facility] [address] [facility], [place], [address], 11/10/2024 12:13:00 11/05/19 25 11/05/2024 NUSWA B VAGIN ITIS PLUS (VG+) bon albicans, BAUTISTA Negati ve negati ve Not Available [facility] ([facility] [place] [facility]) [address] [place], [address], 11/10/2024 12:13:00 11/05/19 25 11/05/2024 NUSWA B VAGIN ITIS PLUS (VG+) bon glabrata, BAUTISTA Negati ve negati ve Not Available [facility] ([facility] [place] [place] [facility] [address] [place], [address], 11/10/2024 12:13:00 11/05/19 25 11/05/2024 NUSWA B VAGIN ITIS PLUS (VG+) trich vag by BAUTISTA Negati ve negati ve Not Available [facility] ([facility] [place] [place] [facility] [address] [place], [address], 11/10/2024 12:13:00 11/05/19 25 11/05/2024 NUSWA B VAGIN ITIS PLUS (VG+) chlamydia trachomatis, BAUTISTA Negati ve negati ve Not Available [facility] ([facility] [place] [facility] [address] [place], [address], 11/10/2024 12:13:00 11/05/19 25 11/05/2024 NUSWA B VAGIN ITIS PLUS (VG+) neisseria gonorrhoeae, BAUTISTA Negati ve negati ve Not Available [facility] ([facility] [place] [place] [facility] [address] [facility], [place], [address], 11/10/2024 12:13:00 11/05/19 25 11/10/2024 URINE CULTU RE, ROUTI NE urine culture, routine Final report abnormal Not Available [facility] [place] [place] [facility] [address] [facility], [place], [address], 11/10/2024 12:13:00 11/05/19 25 11/10/2024 URINE CULTU [...] ng units per mL Not Available [facility] ([facility] [place] [place] [facility] [address] [facility], [place], [address], 11/10/2024 12:13:00 11/05/19 25 11/10/2024 URINE CULTU [...] S Vanco mycin S Not Available [facility] ([facility] [place] [facility] [address] [facility], [place], [address], 11/10/2024 12:13:00 11/05/19 25 11/04/2024 urina lysis , dipst ick Leukocytes Modera te Not Available [address], [address], 11/04/2024 14:20:04 11/05/19 25 11/04/2024 urina lysis , dipst ick Nitrite positi ve Not Available [address], [address], 11/04/2024 14:20:04 11/05/19 25 11/04/2024 urina lysis , dipst ick Urobilinogen 1 Not Available [address], [address], 11/04/2024 14:20:04 11/05/19 25 11/04/2024 urina lysis , dipst ick Protein 100 Not Available [address], [address], 11/04/2024 14:20:04 11/05/19 25 11/04/2024 urina lysis , dipst ick pH 5.0 Not Available [address], [address], 11/04/2024 14:20:04 11/05/19 25 11/04/2024 urina lysis , dipst ick Blood Large Not Available [address], [address], 11/04/2024 14:20:04 11/05/1911/04/2024 urina lysis , dipst ick Specific [place] 1.020 Not Available [address], [address], 11/04/2024 14:20:04 11/05/19 25 11/04/2024 urina lysis , dipst ick Ketone Negati ve Not Available [address], [address], 11/04/2024 14:20:04 11/05/19 25 11/04/2024 urina lysis , dipst ick Bilirubin Negati ve Not Available [address], [address], 11/04/2024 14:20:04 11/05/19 25 11/04/2024 urina lysis , dipst ick Glucose Negati ve Not Available [address], [address], 11/04/2024 14:20:04 11/05/19 25 11/04/2024 urina lysis , dipst ick Appearance Cloudy Not Available [address], [address], 11/04/2024 14:20:04 11/05/19 25 11/04/2024 urina lysis , dipst ick Color Dark Yellow Not Available [address], [address], 11/04/2024 14:20:04 11/05/19 25 11/04/2024 pregn laquita test, urine HCG negati ve Not Available [address], [address], 11/04/2024 14:20:17 12/08/19 25 12/07/2024 urina lysis , dipst ick Leukocytes Modera te Not Available [address], [address], 12/07/2024 17:06:20 12/08/19 25 12/07/2024 urina lysis , dipst ick Nitrite negati ve Not Available [address], [address], 12/07/2024 17:06:20 12/08/19 25 12/07/2024 urina lysis , dipst ick Urobilinogen .2 Not Available [address], [address], 12/07/2024 17:06:20 12/08/19 25 12/07/2024 urina lysis , dipst ick Protein 100 Not Available [address], [address], 12/07/2024 17:06:20 12/08/19 25 12/07/2024 urina lysis , dipst ick pH 5.5 Not Available [address], [address], 12/07/2024 17:06:20 12/08/19 25 12/07/2024 urina lysis , dipst ick Blood Modera te Not Available [address], [address], 12/07/2024 17:06:20 12/08/19 25 12/07/2024 urina lysis , dipst ick Specific [place] 1.025 Not Available [address], [address], 12/07/2024 17:06:20 12/08/19 25 12/07/2024 urina lysis , dipst ick Ketone Trace Not Available [address], [address], 12/07/2024 17:06:20 12/08/19 25 12/07/2024 urina lysis , dipst ick Bilirubin Negati ve Not Available [address], [address], 12/07/2024 17:06:20 12/08/1912/07/2024 urina lysis , dipst ick Glucose Negati ve Not Available [address], [address], 12/07/2024 17:06:20 12/08/19 25 12/07/2024 urina lysis , dipst ick Appearance Cloudy Not Available [address], [address], 12/07/2024 17:06:20 12/08/19 25 12/07/2024 urina lysis , dipst ick Color Dark Yellow Not Available [address], [address], 12/07/2024 17:06:20 12/09/19 25 12/10/2024 CHLAM YDIA/ GC AMPLI FICAT ION chlamydia trachomatis, BAUTISTA Negati ve negati ve Not Available [facility] [place] [place] [facility] [address] [facility], [place], [address], 12/11/2024 17:07:37 12/09/19 25 12/10/2024 CHLAM YDIA/ GC AMPLI FICAT ION neisseria gonorrhoeae, BAUTISTA Negati ve negati ve Not Available [facility] [place] [place] [facility] [address] [facility], [place], [address], 12/11/2024 17:07:37 12/09/19 25 12/11/2024 URINE CULTU RE, ROUTI NE urine culture, routine Final report abnormal Not Available [facility] ([facility] [place] [place] [facility] [address] [facility], [place], [address], 12/11/2024 17:07:38 12/09/19 25 12/11/2024 URINE CULTU [...] ng units per mL Not Available [facility] ([facility] [place] [place] [facility] [address] [place], [address], 12/11/2024 17:07:38 12/09/19 25 12/11/2024 URINE CULTU [...] S Vanco mycin S Not Available [facility] ([facility] [place] [place] [facility] [address] [facility], [place], [address], 12/11/2024 17:07:38 12/09/19 25 12/09/2024 PLEAS E NOTE please note Commen t The date and/o r time of colle ction was not indic ated on the requi sitio n as requi red by state and juan dav[place] al law. The date of recei pt of the speci men was used as the colle ction date if not suppl ied. Not Available [facility] ([facility] [place] [place] [facility] [address] [facility], [place], [address], 12/11/2024 17:07:38 04/14/20 25 04/19/2025 URINE CULTU RE, ROUTI NE urine culture, routine Final report abnormal Not Available [facility] ([facility] [place] [place] [facility] [address] [place], [address], 04/19/2025 02:06:46 04/14/2004/19/2025 URINE CULTU RE, ROUTI [...] ng units per mL Not Available [facility] [place] [place] [facility] [address] [facility], [place], [address], 04/19/2025 02:06:46 04/14/2004/19/2025 URINE CULTU RE, TAHMINA [...] S Vanco mycin S Not Available [facility] ([facility] [place] [place] [facility] [address] [facility], [place], [address], 04/19/2025 02:06:46 04/14/20 25 04/14/2025 urina lysis , dipst ick Leukocytes Modera te Not Available [address], [address], 04/14/2025 11:28:43 04/14/20 25 04/14/2025 urina lysis , dipst ick Nitrite negati ve Not Available [address], [address], 04/14/2025 11:28:43 04/14/20 25 04/14/2025 urina lysis , dipst ick Urobilinogen .2 Not Available [address], [address], 04/14/2025 11:28:43 04/14/20 25 04/14/2025 urina lysis , dipst ick Protein Trace Not Available [address], [address], 04/14/2025 11:28:43 04/14/20 25 04/14/2025 urina lysis , dipst ick pH 6.0 Not Available [address], [address], 04/14/2025 11:28:43 04/14/20 25 04/14/2025 urina lysis , dipst ick Blood Non-He molyze d: Trace Not Available [address], [address], 04/14/2025 11:28:43 04/14/20 25 04/14/2025 urina lysis , dipst ick Specific [place] 1.025 Not Available [address], [address], 04/14/2025 11:28:43 04/14/20 25 04/14/2025 urina lysis , dipst ick Ketone Negati ve Not Available [address], [address], 04/14/2025 11:28:43 04/14/20 25 04/14/2025 urina lysis , dipst ick Bilirubin Negati ve Not Available [address], [address], 04/14/2025 11:28:43 04/14/20 25 04/14/2025 urina lysis , dipst ick Glucose Negati ve Not Available [address], [address], 04/14/2025 11:28:43 04/14/20 25 04/14/2025 urina lysis , dipst ick Appearance Slight ly Cloudy Not Available [address], [address], 04/14/2025 11:28:43 04/14/2004/14/2025 urina lysis , dipst ick Color Yellow Not Available [address], [address], 04/14/2025 11:28:43 02/15/20 24 02/15/2024 XR, chest , 1 view No observ ation record ed. [email or web address] [facility] [address], [place], [place], [address], 03/05/2024 15:18:08 Result Notes None recorded. Problems Name Problem SNOMED Code Status Onset Date Resolution Date Notes Provider Name and Address Organization Details Recorded Time Plane wart 878925374 Completed 201602/20/2018 Problem Code: B07.8; Problem Code Type: ICD-10; Not Available [facility] 21:18:44 Constipa tion 96422273 Completed 201602/20/2018 Not Available [facility] 21:18:47 Verruca vulgaris 65661212 Completed 201602/20/2018 Problem Code: 078.10; Problem Code Type: ICD-9; Not Available [facility] 21:18:51 Menorrha grecia 096327781 Completed 201703/03/2018 Not Available [facility] 21:18:51 Menometr orrhagia 549701859 Completed 201703/03/2018 Not Available [facility] 21:18:52 Overweig ht in childhoo d 274060800 Completed 201703/08/2021 Problem Code: Z68.53; Problem Code Type: ICD-10; [place] Curtis - [employer] 16:58:46 Acute pansinus itis 2869677 Completed 201706/26/2018 Problem Code: J01.40; Problem Code Type: ICD-10; Not Available [facility] 21:18:45 Acute sinusiti s 36887412 Completed 201706/26/2018 Problem Code: 461.8; Problem Code Type: ICD-9; Not Available [facility] 21:18:54 Tension- type headache 193007868 Completed 201707/10/2018 Problem Code: G44.209; Problem Code Type: ICD-10; Not Available [facility] 21:18:45 Psychoge sabra headache 60365268 Completed 201707/10/2018 Problem Code: 307.81; Problem Code Type: ICD-9; Not Available [facility] 21:18:53 Allergic contact dermatit is 554133477 Active 2018 Problem Code: L23; Problem Code Type: ICD-10; Not Available [facility] 21:18:50 Acute pharyngi tis 085862755 Completed 201811/23/2019 Diamond Aguayo APRN [address] [place], [address] , [employer] 5 14:29:38 Hypertro phy of tonsils AND adenoids 06411382 Completed 201805/16/2022 Problem Code: J35.3; Problem Code Type: ICD-10; BENJI MCDANIELSNEAR null, [employer] 16:58:46 Eruption 328410849 Completed 201811/23/2019 Problem Code: R21; Problem Code Type: ICD-10; BENJI MCDANIELSNEAR null, [employer] 16:58:46 Disorder of upper respirat ory system 457428585 Completed 201805/16/2022 Problem Code: J06.9; Problem Code Type: ICD-10; BENJI MCDANIELSNEAR null, [employer] 2 16:58:46 Influenz a with gastroin testinal tract involvem ent 379758485 Completed 201911/23/2019 Problem Code: J10.2; Problem Code Type: ICD-10; Not Available [facility] 21:18:46 Acute pharyngi tis 976839815 Completed 201905/16/2022 Diamond Aguayo APRN [address] [place], [address] , [employer] 5 14:29:38 Tinea pedis 8268365 Completed 201905/16/2022 Problem Code: B35.3; Problem Code Type: ICD-10; BENJI ENEDELIASIDNEYR null, [employer]. 2 16:58:46 Constipa tion 17332275 Active 2019 Not Available [facility] 21:18:46 Well child 188047342 Completed 201907/26/2022 NATE GUZMÁN null, [employer] 3 17:14:39 Influenz a vaccine needed 03615745745 06 Completed 201911/28/2020 Problem Code: Z23; Problem Code Type: ICD-10; Not Available [facility] 21:18:49 Overweig ht in childhoo d 288116480 Completed 201905/16/2022 Problem Code: Z68.53; Problem Code Type: ICD-10; BENJI ENEDELIANEAR null, [employer]. 16:58:46 Sunburn of first degree 223423519 Completed 201905/16/2022 Problem Code: L55.0; Problem Code Type: ICD-10; BENJI ENEDELIANEAR null, [employer] 16:58:46 Nausea 455034377 Completed 201911/28/2020 Problem Code: R11.0; Problem Code Type: ICD-10; Not Available [facility] 21:18:48 Disorder of upper respirat ory system 650376813 Completed 201911/28/2020 Problem Code: J06.9; Problem Code Type: ICD-10; BENJI ENEDELIANEAR null, [employer] 2 16:58:46 Itching 789724965 Completed 202011/28/2020 Problem Code: L29.9; Problem Code Type: ICD-10; Not Available [facility] 21:18:47 Eruption 345499669 Completed 202011/28/2020 Problem Code: R21; Problem Code Type: ICD-10; BENJI MYNEAR null, [employer] 2 16:58:46 Eruption 722796242 Completed 202005/16/2022 Problem Code: R21; Problem Code Type: ICD-10; BENJI HERRERA null, [employer] 2 16:58:46 Chronic allergic conjunct ivitis 89171990 Completed 202003/08/2021 Problem Code: H10.45; Problem Code Type: ICD-10; Not Available [facility] 21:18:45 Overweig ht in childhoo d 169420539 Completed 202009/14/2021 Problem Code: Z68.53; Problem Code Type: ICD-10; BENJI HERRERA null, [employer] 2 16:58:46 Disorder of eye region 327862053 Completed 202005/16/2022 Problem Code: H57.8; Problem Code Type: ICD-10; BENJI HERRERA null, [employer] 2 16:58:46 Low back pain 341490789 Completed 202005/16/2022 Problem Code: M54.5; Problem Code Type: ICD-10; BENJI HERRERA null, [employer] 2 16:58:46 Uses combined oral contrace ption 901429693 Active 2020 Problem Code: Z30.41; Problem Code Type: ICD-10; Not Available [facility] 21:18:49 Overweig ht in childhoo d 498700324 Completed 202009/14/2021 Problem Code: Z68.53; Problem Code Type: ICD-10; BENJI HERRERA null, [employer] 16:58:46 Well child 666660916 Completed 202009/14/2021 NATE GUZMÁN null, [employer] 3 17:14:39 Disorder of upper respirat ory system 261819441 Completed 202009/14/2021 Problem Code: J06.9; Problem Code Type: ICD-10; BENJI CROWR null, [employer] 2 16:58:46 Acute pharyngi tis 458697714 Completed 202009/14/2021 Diamond Aguayo APRN [address] [place] [address], [address] , [employer] 5 14:29:38 Acute pharyngi tis 263134274 Completed 202111/30/2021 Diamond Aguayo APRN [address] [place] [address], [address] , [employer] 5 14:29:38 Bereavem ent 68377529 Completed 202105/16/2022 Problem Code: Z63.4; Problem Code Type: ICD-10; BENJI MCDANIELSNEAR null, [employer] 2 16:58:46 Hypertro phic scar 25405702 Completed 202105/16/2022 Problem Code: L91.0; Problem Code Type: ICD-10; BENJI MCDANIELSNEAR null, [employer] 2 16:58:46 Swelling / lump finding Completed 202105/16/2022 Problem Code: R22.9; Problem Code Type: ICD-10; BENJI MCDANIELSNEAR null, [employer] 2 16:58:46 Contact dermatit is 09898561 Completed 202202/14/2024 Almaz Quintanilla NP [address] [place] [address], [address] , [employer] 4 08:14:38 Acute urinary tract infectio n 213220021 Completed 202202/14/2024 Almaz Quintanilla NP [address] [place] [address], [address] , [employer] 4 08:14:35 Dysuria 67709473 Active 2024 Anahy rodriguez, [employer] 5 17:06:15 Acute cystitis 38917141 Active 2024 Diamond Aguayo, [employer] [address] [place], [address] , [employer] 5 11:36:31 Chronic constipa tion 269487348 Active 2024 Diamond Aguayo, [employer] [address] [place], [address] , [employer] 5 11:46:18 Problem Notes None recorded. Medical Equipment None Reported. Allergies Allergen ID Allergen Name Allergen Category Reaction Reaction Severity Criticality Documentation Date Start Date Code Code System Note Provider Name and Address Organization Details Recorded Time 58687 Product containin g penicilli n (product) medicatio n Not available Not available Not available 03/27/2022 28116 8001 SNOMED NATE rodriguez, [place] [employer] 3 17:13:52 Medications Name Sig Start [...] propionate 50 mcg/actuati on nasal spray,suspe nsion [place] 1 spray every day by intranasa l [...] 5 161.29 cm 64 % 23 kg/m2 04014.4 7 g 98 [degF] 96 /min 98 % 118/80 mm[Hg] BENJI HERRERA [employer] 5 14:13:37 Date Recorded Body height Body mass index (BMI) Body mass index (BMI) [Percentile] Per age and sex Body weight Heart rate Oxygen saturation Systolic And Diastolic Provider Name and Address Organization Details Last Updated DateTime 5 161.29 cm 23.2 kg/m2 66 % 79349.7 9 g 76 /min 94 % 122/83 mm[Hg] Anahy Izquierdo [employer] 5 17:05:45 Date Recorded Body height Body mass index (BMI) [Percentile] Per age and sex Body mass index (BMI) Body weight Body temperature Heart rate Oxygen saturation Systolic And Diastolic Provider Name and Address Organization Details Last Updated DateTime 4 161.29 cm 91 % 28.1 kg/m2 44040.7 7 g 99.1 [degF] 107 /min 96 % 110/76 mm[Hg] Yvette Mclaughlin [employer] 4 16:54:23 Date Recorded Body height Body mass index (BMI) Body mass index (BMI) [Percentile] Per age and sex Body weight Body temperature Heart rate Oxygen saturation Systolic And Diastolic Provider Name and Address Organization Details Last Updated DateTime 4 161.29 cm 28.2 kg/m2 91 % 07370.5 3 g 99.9 [degF] 108 /min 95 % 106/75 mm[Hg] Ibeth Ruiz [employer] 4 17:06:06 Date Recorded Body height Body mass index (BMI) Body mass index (BMI) [Percentile] Per age and sex Body weight Body temperature Heart rate Oxygen saturation Systolic And Diastolic Provider Name and Address Organization Details Last Updated DateTime 5 161.29 cm 23.5 kg/m2 68 % 73041.5 3 g 97.9 [degF] 76 /min 98 % 115/80 mm[Hg] BENJI SHARON [employer] 5 11:28:11 Social History Question Answer Notes LastModified by Organizat ion Details LastModified Time Tobacco Smoking Status Never Smoker RUBENGEORGE rodriguez [employer]. 03/07/2023 15:52:04 Do You Have An Advance Directive? No Information n ot available 06/19/2023 Is Your Home Air Conditioned? Yes Information not available 05/16/2022 Are You Blind Or Do You Have Difficulty Seeing? No [email or web address] Information n ot available 03/07/2023 What Is Your Level Of Caffeine Consumption? Moderate [email or web address] Information not available 03/07/2023 Are You A Caregiver? No [email or web address] Information not available 03/07/2023 In The 14 [...] Do You Have Serious Difficulty Hearing? No [email or web address] Information not available 03/07/2023 What Type Of Diet Are You Following? REGULAR Information n ot available 05/16/2022 Have There Been Any Changes To Your Family Or Social Situation? No [email or web address] Information no t available 03/07/2023 What Grade Are You In? [id number] [email or web address] Information not available 03/07/2023 Are There Any Guns Present In Your Home? No Information not available 05/16/2022 Which Of Your Hands Is Dominant? Right [email or web address] Information n ot available 03/07/2023 What Is Your Home Situation? Mother Information not available 05/16/2022 Do You Have A Medical Power Of Fuel Storage Technician? No [email or web address] Information not available 06/19/2023 What Was The Date Of Your Most Recent Tobacco Screening? 04/14/2025 Information not available 04/14/2025 Do You Have Any Pets? Yes [email or web address] Information not available 03/07/2023 What Is Your Relationship Status? Single Information not available 05/16/2022 Have You Repeated Any Grades? No [email or web address] Information not available 03/07/2023 What Is The Name Of Your School? [employer] [email or web address] Information not available 03/07/2023 Do You Use Your Seat Belt Or Car Seat Routinely? Yes Information not available 05/16/2022 Do You Have Any Siblings? Yes [email or web address] Information not available 03/07/2023 Do You Have [...] Have Difficulty Walking Or Climbing Stairs? No [email or web address] Information not available 03/07/2023 Are You Currently [...] other forms of tobacco or nicotine? No [email or web address] Information not available 03/07/2023 What is your level of alcohol consumption? None Information not available 05/16/2022 Are you currently employed? No Information not available 05/16/2022 Do you have transportation difficulties? No [email or web address] Information not available 03/07/2023 Are you able to walk independently without assistance or assistive devices? [employer]OREST [email or web address] Information not available 03/07/2023 Do you have difficulty doing errands alone? No [email or web address] Information not available 03/07/2023 Are you able to care for yourself independently? Yes Information not available 05/16/2022 Do you have difficulty dressing, bathing, grooming, or toileting? No [email or web address] Information not available 03/07/2023 Mental Status Question Answer Note LastModified by Organization D etails LastModified Time Do you have difficulty concentrating, remembering or making decisions? No [email or web address] Information no t available 03/07/2023 Family History [...] adolescent or pediatric 5 completed Not Available [facility] 03/27/2022 23:48:35 IPV 6 completed Not Available [facility] 03/27/2022 23:48:35 Hep A, ped/adol, 2 dose 7 completed Not Available [facility] 03/27/2022 23:48:35 Hep A, ped/adol, 2 dose 6 completed Not Available [facility] 03/27/2022 23:48:35 DTaP-Hep B-IPV 6 completed Not Available [facility] 03/27/2022 23:48:36 DTaP-Hep B-IPV 6 completed Not Available [facility] 03/27/2022 23:48:36 Tdap 8 completed Ibeth rodriguez, [employer] 04/19/2023 17:05:31 Influenza, split virus, quadrivalent, preservative 8 completed Not Available [facility] 09/09/2023 10:16:40 pneumococcal conjugate PCV 7 6 completed Not Available [facility] 03/27/2022 23:48:36 pneumococcal conjugate PCV 7 7 completed Not Available [facility] 03/27/2022 23:48:36 pneumococcal conjugate PCV 7 6 completed Not Available [facility] 03/27/2022 23:48:36 pneumococcal conjugate PCV 7 6 completed Not Available [facility] 03/27/2022 23:48:36 meningococcal MCV4P 8 completed Ibeth rodriguez, [employer] 04/19/2023 17:05:31 HPV9 8 completed Not Available [facility] 09/09/2023 10:16:40 HPV9 0 completed Not Available [facility] 03/27/2022 23:48:37 DTaP 7 completed Not Available [facility] 09/09/2023 10:16:40 DTaP 6 completed Not Available [facility] 09/09/2023 10:16:40 meningococcal MCV4P 1 completed Not Available [facility] 09/09/2023 10:16:40 Hib (PRP-OMP) 6 completed Not Available [facility] 03/27/2022 23:48:37 Hib (PRP-OMP) 6 completed Not Available [facility] 03/27/2022 23:48:37 Hib-Hep B 6 completed Not Available [facility] 03/27/2022 23:48:37 Influenza, split virus, quadrivalent, PF 2 completed Diamond Aguayo APRN [address] [place], [address], [employer] 05/18/2022 16:07:47 Influenza, split virus, quadrivalent, preservative 8 completed RUBEN PRATT null, [employer] 03/07/2023 16:14:15 Hib, unspecified formulation 6 completed RUBEN PRATT null, [employer] 03/07/2023 16:14:15 HPV9 8 completed RUBEN PRATT null, [employer] 03/07/2023 16:14:16 Influenza, live, trivalent, intranasal, PF 9 completed RUBEN PRATT null, [employer] 03/07/2023 16:14:16 MMR 9 completed RUBEN PRATT null, [employer] 03/07/2023 16:14:16 COVID-19, mRNA, LNP-S, PF, 30 mcg/0.3 mL dose, shaheed-sucrose 2 completed RUBEN PRATT null, [employer] 03/07/2023 16:14:16 varicella 9 completed RUBEN PRATT null, [employer] 03/07/2023 16:14:16 Influenza, split virus, trivalent, preservative 0 completed RUBEN PRATT null, [employer] 03/07/2023 16:14:16 Influenza, split virus, trivalent, preservative 0 completed [facility]EN [facility]driguez, [facility] 03/07/2023 16:14:16 Meningococcal MCV4O 1 completed RUBEN rodriguez, [employer] 03/07/2023 16:14:16 DTaP, unspecified formulation 7 completed RUBEN rodriguez, [facility] 03/07/2023 16:14:16 DTaP, unspecified formulation 6 completed RUBEN rodriguez, [place] [employer] 03/07/2023 16:14:16 Past Encounters Encounter ID Performer Location Encounter Start Date Encounter Closed Date Diagnosis/Indication Diagnosis SNOMED-CT Code Diagnosis ICD10 Code Diagnosis IMO Codes Diagnosis Note [id number] Diamond Aguayo[address] [address] 05/16/2022 16:34:54 05/16/2022 17:25:47 Well child 194072515 Z00.129 Surveillan ce of oral contraception 431709035 Z30.41 Thoracic back pain 71342 8004 M54.6 Instructed on home stretching program and proper body mechanics with good posture. Will obtain x-ray, and start physical therapy. Abnormal weight loss 267 088441 R63.4 She is a picky eater and has had poor nutritiona l choices, but does have good appetite. Has lost approximat kait 15 pounds over the past year unintentio shruthi. Administra tion of influenza vaccine 99159825 Z23 Allergic rhinitis 591566 04 J30.9 [id number] Dorota Quintanilla [address] [address] 07/26/2022 17:07:25 07/26/2022 17:20:44 Conjunctivitis 3262817 H10.9 Normal bod y mass index 12702958 Z68.52 [id number] Dorota Quintanilla [address] [address] 08/09/2022 16:57:54 08/10/2022 07:57:51 Pain in throat 466682713 R07.0 Normal bod y mass index 02513443 Z68.52 [id number] [place] [address] 09/14/2022 16:04:11 09/14/2022 16:34:47 Conjunctivitis 8159455 H10.9 Cellulitis of periorbital region of left eye 2124752986 82677 L03.213 Normal bod y mass index 99771385 Z68.52 [id number] Jaylin Nicholewolf [employer] [place] [address] 11/05/2022 09:45:40 11/05/2022 10:36:43 Acute upper respiratory infection 95335982 J06.9 [id number] [place] [address] 03/07/2023 15:41:57 03/07/2023 17:22:11 Contact dermatitis 97548403 L25.9 [id number] Jaylin GrimesRADHA [place] [address] 04/05/2023 14:19:21 04/08/2023 12:02:49 Acute upper respiratory infection 90460703 J06.9 Streptococ ayde sore throat 45316499 J02.0 Normal bod y mass index 36776865 Z68.24 [id number] [place] [address] 04/19/2023 16:55:30 04/19/2023 17:47:39 Acute urinary tract infection 895429947 N39.0 High risk sexual behavior 286976312 Z72.51 Surveillan ce of oral contraception 428996512 Z30.41 Allergic rhinitis 461933 04 J30.9 Constipation 45789240 K5 9.00 Body mass index 20-24 - normal 004328095 Z68.24 [id number] MANUEL MARTINEZ [place] [id number] 06/19/2023 16:45:54 06/19/2023 17:33:24 Viral screening 037375717 Z11.59 Dysuria 38829170 R30.0 Acute urin trish tract infection 405219720 N39.0 [id number] Diamond Aguayo APRN [place] [address] 09/06/2023 16:28:43 09/06/2023 17:11:52 Acute urinary tract infection 325145232 N39.0 [id number] Richelle Velázquez [employer] [place] [address] 09/09/2023 10:15:03 09/09/2023 14:33:29 Streptococcal sore throat 64529157 J02.0 Overweight in childhood 123611683 E66.3 [id number] Richelle Eber [employer] [place] [address] 11/04/2023 11:23:47 11/08/2023 13:42:47 Seasonal allergic rhinitis 600405002 J30.2 Overweight in childhood 824374133 E66.3 [id number] Almaz Quintanilla NP [place] [address] 02/10/2024 16:36:14 02/14/2024 10:00:22 Acute pharyngitis 028468182 J02.9 Fever 614282737 R50.9 Viral syndrome 789365075 B34.9 [id number] Almaz Quintanilla NP [place] [address] 02/12/2024 16:54:41 02/14/2024 10:10:22 Fever 818767676 R50.9 Acute left otitis media 499634093 H66.92 [id number] Diamond Aguayo [employer] [place] [address] 11/04/2024 14:06:59 11/04/2024 14:43:04 Dysuria 16838302 R30.0 Contracept ion care management 298489096 Z30.9 Has been taking OCP and doing well with those, but like to have an IUD placed. Adult heal th examination 341902908 Z00.00 Counseled regarding prevention of STD's . Counseled regarding contracept chance options . Advised avoidance of tobacco, alcohol, and drugs . Counseled regarding folic acid supplement ation, calcium needs and prevention of osteoporos is . BSE reviewed and recommende d. Body mass index 20-24 - normal 787322376 Z68.23 Acute urin trish tract infection 333765809 N39.0 Stop douching.P atient presents with symptoms of UTI. Results of dipstick were positive for UTI. Advised to drink clear fluids, reduce sexual activity, Tylenol for pain and take prescribed medication s as instructed . Patient encouraged to follow up within 1 week if not improving. [id number] [place] [id number] 12/07/2024 16:35:26 12/07/2024 17:19:32 Dysuria 32502293 R30.0 70521 High risk heterosexual behavior 7907007960 70252 Z72.51 [id number] Acute urin trish tract infection 195025023 N39.0 431251 Body mass index 20-24 - normal 450017190 Z68.23 13556885 [id number] [place] [address] 04/14/2025 11:08:26 04/14/2025 14:02:52 Acute cystitis 71092859 N30.01 [id number] Monet Pritchard, female patient with history of scoliosis and recurrent urinary tract infections (UTIs) in October and November, presents with symptoms suggestive of another UTI. Chronic constipation 236 209641 K59.09 [id number] Health Concerns Section Related Observation LastModified by Organization Detai ls LastModified Time None Recorded Concern Status LastModified by Organization Details LastModified Time None Recorded Advance Directives Directive N: Payers Insurance Date Sequence Insurance Name Policy Number Policy Stevens Covered Member ID Stevens Member ID Guarantor Name 05/13/2025 1 [facility] (MEDICAID HMO) Monet Pritchard [id number] Elizabeth Browne 11/04/2024 1 *SELF PAY* Po lly Hollie 05/13/2025 [place] [facility] (MEDICAID) Monet Pritchard [id number] Elizabeth Browne 05/15/2022 1 *SELF PAY* Po lly Hollie 04/14/2025 1 [employer] [place] (MEDICAID O) Monet Pritchard [id number] Elizabeth Hollie Notes Date Note Type Note Provider Name and Address Organization Details Recorded Time 02/10/2024 text/html Patient presents for sore throat. She was evaluated in the [facility] ER on Saturday night for sore throat [...] and ibuprofen PRN. Almaz Quintanilla NP [address] [place], [address], [employer]. 02/14/2024 08:43:17 02/12/2024 text/html Ongoing sore throat, body aches and cough that seems to be getting worse. Also having ear pain that started to get worse yesterday. Denies SOA, chest pain. Has had fever on and off. Fatigue and just wants to lay around. Needs work excuse for today. Almaz Quintanilla NP [address] [place], [address], [employer], [employer]. 02/14/2024 08:40:24 11/04/2024 text/html Annual WellnessReported by [...] on OCP, but would like referral to [facility]STRU[facility] for IUD placement. Diamond Aguayo APRN [address] [place], [address], [employer], [employer]. 11/04/2024 14:53:25 12/07/2024 text/html pt here today [...] placed on 12/11 Dorota Quintanilla APRN [address] [place], [address], [employer] 12/07/2024 17:47:36 04/14/2025 text/html ROS as noted in the HPI Chief Complaint Suprapubic pain, recurrent urinary tract infections, chronic constipation History of Present Illness Monet Peabody presents with symptoms suggestive of a urinary [...] status. LMP 04/12/25. Diamond Aguayo APRN [address] [facility], [place], [address], [facility] [employer] 04/14/2025 12:00:59 OBGyn Episode No OBEpisode recorded.
--- OUTSIDE RECORDS SUMMARY | 2025-06-11 15:00 | XMS_ITS | Clinical Summary ---
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 [id number].[place]
--- OUTSIDE RECORDS SUMMARY | 2025-06-11 15:00 | XMS_ITS | Clinical Summary ---
Author Organization [facility] Address [address] [place], [place] [id number] Care Team Providers Care Poultry Farm Worker Name Role Phone Dany Dinh MD Primary [...] age to complete this topic Care Teams Poultry Farm Worker Relationship Specialty Start Date End Date Dany Dinh MD PCP - General 05
--- OUTSIDE RECORDS SUMMARY | 2025-06-11 15:00 | XMS_ITS | Clinical Summary ---
Author Organization Healthcare Address [address] [place] [address] Care Team Providers Care Brand Manager Name Role Phone Pcp, No Primary Care [...] Dental X-Ray: [facility] 10/10/2023 10/09/19, 05/01/2022, 04/23/2022 [id number] Vaccine (2 season) 2025 03/15/2022 UKY-Influenza Vaccine [...] Most Recently Relevant to Health Maintenance Insurance [facility] MEDICAID D[facility]AL [employer] MEDICAID Care Teams Brand Manager Relationship Specialty Start Date End Date Pcp, [place] [address] PCP - General Family Medicine 05/01/22
== END 2025-06-11 23:59 | disposition home or self-care (01) ==
LOC: RAD 14:57
PROVIDERS: PCP Nurse Practitioner Family; Visit Provider Nurse Practitioner Obstetrics & Gynecology
DX: O20.9 Hemorrhage in early pregnancy, unspecified (principal); O99.891 Other specified diseases and conditions complicating pregnancy; R82.71 Bacteriuria; Z32.01 Encounter for pregnancy test, result positive; Z3A.01 Less than 8 weeks gestation of pregnancy
CPT/HCPCS: 76817